=== PATIENT | male | born 1955 | race Caucasian/White ===

== ENCOUNTER 2021-06-14 11:56 | Outpatient (CLI) | payer BC, SELFPAY ==
--- NOTE | ~2021-06-14 | XR_ITS ---
EXAMINATION: XR lumbar spine 2-3V DATE: 06/14/2021 12:23 INDICATION: Low back pain. TECHNIQUE: 3 views of lumbar spine were obtained. COMPARISON: Lumbar spine radiographs 04/10/2013, MRI 05/18/2012 FINDINGS: There is 8 degrees dextrocurvature of lumbar spine. Vertebral body heights are normal. Ther e is moderately decreased disc height at L1-L2, mildly decreased disc height from L2-L3 through L4-L5 , and severely decreased disc height at L5-S1 with endplate remodeling. There is multilevel facet mickey nt osteoarthritis, severe at many levels. IMPRESSION: 1. Severe lower lumbar spondylosis. Reviewed, dictated and finalized at location A. T [employer] SUPERVISOR
== END 2021-06-14 11:57 | disposition home or self-care (01) ==
LOC: ANHIMG 12:04
PROVIDERS: PCP Nurse Practitioner Family; Visit Provider Nurse Practitioner Family
DX: M47.896 Other spondylosis, lumbar region (principal)
CPT/HCPCS: 72100

== ENCOUNTER 2022-06-19 09:41 | Outpatient (CLI) | payer MEDICARE, SELFPAY ==
[2022-06-19 09:59] LABS: Basophils Absolute Auto 0.05 K/mm3 (0.00-0.10); Basophils Percent Auto 0.7 % (0.0-1.0); Eosinophils Absolute Auto 0.09 K/mm3 (0.02-0.50); Eosinophils Percent Auto 1.3 % (1.0-6.0); Hematocrit 49.4 % (37.0-46.0); Hemoglobin 16.3 g/dL (12.4-15.3); Immature Granulocyte Absolute 0.05 K/mm3 (0.00-0.00); Immature Granulocyte Percent A 0.7 % (0.0-0.0); Lymphocytes Absolute Auto 2.32 K/mm3 (1.10-4.50); Lymphocytes Percent Auto 32.4 % (18.0-42.0); Mean Corpuscular Hemoglobin 29.9 pg (27.0-31.0); Mean Corpuscular Volume 90.6 fL (78.0-102.0); Mean Platelet Volume 9.3 fl (8.7-11.0); Monocytes Absolute Auto 0.64 K/mm3 (0.10-0.90); Monocytes Percent Auto 8.9 % (2.0-11.0); Platelet Count Result 249 K/mm3 (150-420); Red Blood Count 5.45 M/mm3 (4.70-6.10); Red Cell Distribution Width 12.6 % (11.6-14.4); White Blood Count 7.2 K/mm3 (4.8-10.8)
[2022-06-19 10:45] LABS: Alanine Aminotransferase 36 U/L (16-63); Albumin Level 4.1 g/dL (3.4-5.0); Alkaline Phosphatase 85 U/L (46-116); Anion Gap 7 mmol/L (8-16); Aspartate Amino Transferase 15 U/L (15-37); Bilirubin,Total 0.6 mg/dL (0.00-1.00); Blood Urea Nitrogen 21 mg/dL (7-18); Calcium 9.1 mg/dL (8.5-10.1); Carbon Dioxide 31 mmol/L (21-32); Chloride 105 mmol/L (98-108); Cholesterol 164 mg/dL (0-200); Estimated Glomerular Filt Rate > 60; Free T4 Free Thyroxine 0.92 ng/dL (0.76-1.46); Glucose 103 mg/dL (70-99); HDL Direct 51 mg/dL (40-60); LDL Cholesterol Calculated 93 mg/dL (<130); Magnesium 1.7 mg/dL (1.8-2.4); Osmolality Calculated 299 mOsm/kg (285-295); Potassium 4.4 mmol/L (3.5-5.1); Sodium 143 mmol/L (136-145); Thyroid Stimulating Hormone 1.75 uIU/mL (0.36-3.74); Total Protein 7.2 g/dL (6.4-8.2); Triglycerides 98 mg/dL (0-150)
== END 2022-06-19 09:42 | disposition home or self-care (01) ==
LOC: CHSLAB 09:46
PROVIDERS: PCP Nurse Practitioner Family; Visit Provider Nurse Practitioner Family
DX: R61 Generalized hyperhidrosis (principal); I10 Essential (primary) hypertension; Z13.6 Encounter for screening for cardiovascular disorders; R25.2 Cramp and spasm
CPT/HCPCS: 36415; 80053; 80061; 83735; 84439; 84443; 85025

== ENCOUNTER 2022-11-03 11:04 | Outpatient (CLI) | payer MEDICARE, OTHER, SELFPAY ==
[2022-11-03 11:18] LABS: Hematocrit 47.9 % (37.0-46.0); Hemoglobin 15.9 g/dL (12.4-15.3); Mean Corpuscular HGB Conc 33.2 g/dL (32.0-36.0); Mean Corpuscular Hemoglobin 30.1 pg (27.0-31.0); Mean Corpuscular Volume 90.7 fL (78.0-102.0); Mean Platelet Volume 8.9 fl (8.7-11.0); Platelet Count Result 235 K/mm3 (150-420); Red Blood Count 5.28 M/mm3 (4.70-6.10); Red Cell Distribution Width 12.2 % (11.6-14.4); White Blood Count 7.3 K/mm3 (4.8-10.8)
[2022-11-03 12:21] LABS: Alanine Aminotransferase 32 U/L (16-63); Albumin Level 4.1 g/dL (3.4-5.0); Alkaline Phosphatase 93 U/L (46-116); Anion Gap 8 mmol/L (8-16); Aspartate Amino Transferase 21 U/L (15-37); Bilirubin,Total 0.5 mg/dL (0.00-1.00); Blood Urea Nitrogen 17 mg/dL (7-18); Calcium 9.1 mg/dL (8.5-10.1); Carbon Dioxide 29 mmol/L (21-32); Chloride 104 mmol/L (98-108); Cholesterol 155 mg/dL (0-200); Estimated Glomerular Filt Rate > 60; Glucose 79 mg/dL (70-99); HDL Direct 43 mg/dL (40-60); LDL Cholesterol Calculated 80 mg/dL (<130); Osmolality Calculated 292 mOsm/kg (285-295); Potassium 4.3 mmol/L (3.5-5.1); Prostate Specific Antigen 2.2 ng/mL (< OR = 4.0); Sodium 141 mmol/L (136-145); Triglycerides 160 mg/dL (0-150)
[2022-11-03 12:44] LABS: Thyroid Stimulating Hormone Reflex 1.66 u/IU/mL (0.36-3.74)
== END 2022-11-03 11:05 | disposition home or self-care (01) ==
PROVIDERS: PCP Nurse Practitioner Family; Visit Provider Family Medicine
DX: R35.1 Nocturia (principal); E11.9 Type 2 diabetes mellitus without complications; I10 Essential (primary) hypertension; L98.8 Other specified disorders of the skin and subcutaneous tissue; Z12.5 Encounter for screening for malignant neoplasm of prostate
CPT/HCPCS: 36415; 80053; 80061; 84153; 84443; 85027; 88305; 88342; G0103

== ENCOUNTER 2022-11-10 09:31 | Outpatient (NON) | payer MEDICARE, SELFPAY | END 2022-11-10 09:32 | disposition home or self-care (01) | LOC: CHSLAB 09:33 | PROVIDERS: Visit Provider Family Medicine | DX: C43.59 Malignant melanoma of other part of trunk (principal) | CPT/HCPCS: 88305; 88342 ==

== ENCOUNTER 2022-11-29 10:19 | Outpatient (NON) | payer MEDICARE, SELFPAY | END 2022-11-29 10:20 | disposition home or self-care (01) | LOC: CHSLAB 10:21 | PROVIDERS: Visit Provider Family Medicine | DX: L82.1 Other seborrheic keratosis (principal) | CPT/HCPCS: 88305; 88342 ==

== ENCOUNTER 2022-12-25 08:09 | Outpatient (CLI) | payer MEDICARE, OTHER, SELFPAY ==
--- NOTE | 2022-12-25 08:30 | ECG_ITS ---
Measurements Intervals [place] Rate: 60 P: 46 CO: 155 QRS: 8 QRSD: 97 T: 29 QT: 405 QTc: 407 Interpretive Statements SINUS RHYTHM BASELINE ARTIFACT NORMAL ECG NO PREVIOUS ECG AVAILABLE FOR COMPARISON Electronically Signed On 12-25-2022 17:03:12 CDT by Damien Cadena M.D.
== END 2022-12-25 08:10 | disposition home or self-care (01) ==
LOC: ANHSURGERY 08:18
PROVIDERS: PCP Nurse Practitioner Family; Visit Provider Surgery Plastic and Reconstructive Surgery
DX: I10 Essential (primary) hypertension (principal); Z01.818 Encounter for other preprocedural examination
CPT/HCPCS: 93005

== ENCOUNTER 2023-01-04 01:46 | Day surgery (SDC) | payer MEDICARE, OTHER, SELFPAY ==
[2022-12-22 14:03] VITALS: BMI 35.9
--- NOTE | 2022-12-22 14:33 | PC.NURSE ---
Report to the Outpatient Waiting Room, entrance under the green pavilion located off [facility], at time ___8:00AM___ on date _01/04/23 . Planned Procedure Time: NUCLEAR MED AT 9:00AM/SURGERY AT 10:30AM . Time changes happen often and if your time is changed the preop area will call you the afternoon before. - You and your visitor will be asked to self-screen and do not enter if you have any COVID symptoms. - A mask is optional within the hospital at this time. Patients may have clear liquids (water, carbonated beverages, clear teas, apple juice) until 3 hours prior to surgery with a maximum of 20 ounces. - No food from midnight until time of surgery Take the following medications with a SIP of water the morning of surgery: __NONE DO NOT STOP ANY OF YOUR OTHER PRESCRIPTION MEDICATIONS PRIOR TO SURGERY ?EXCEPT THE FOLLOWING Medications to discontinue per physician ___HOLD ALL VITAMINS/SUPPLEMENTS 3 DAYS PRE-OP Date to take last dose___12/31/22 Please no make-up, nail croatian, hairspray, perfume, deodorant, or body powder the day of surgery. No jewelry (including any body piercings) or valuables the day of surgery, leave them at home. Please take a shower or bath the night before, or the morning of, surgery with an antibacterial soap. Wear comfortable, loose fitting clothing. Children are encouraged to wear pajamas. - Jewelry must be removed prior to entering the operating room. Rings and piercings that are not removed may be cut off. - The hospital will not accept responsibility for valuables. - Please leave all valuables, including medications, at home the day of surgery. If you are going home after surgery, a licensed driver trainer must drive you home. - NO public transportation without another adult if you receive anesthesia. - We recommend that an adult stay with you for 24 hours following discharge. - We also recommend that you do not drive, make important decision, drink alcoholic beverages, or take any drugs that were not prescribed by your health care provider for at least 24 hours after your discharge time. Follow any additional instructions given to you from your surgeon. If you or anyone in your household have experienced Covid symptoms in the past week, please notify your surgeon or the nurse liaison at the phone number below for possible testing. Telephone instructions given to __PATIENT and asked if any additional questions and then verbalized understanding. Patient advised to call surgeon office or pre surgery nurse liaison [phone] if any additional questions.
[2023-01-04] VITALS (7 sets, daily range): BP systolic 113–133; BP diastolic 68–77; PULSE 69–72; RESP 14–18; TEMP 36.9–37.1; O2SAT 94–98
--- NOTE | ~2023-01-04 | NM_ITS ---
EXAMINATION: NM sentinel node w imaging DATE: 01/04/2023 09:49 INDICATION: Melanoma TECHNIQUE: 0.660 mCi Tc-99m Lymphoseek was injected in two aliquots along the medial and lateral nelly ins of the scar at the site of a recent melanoma excision. 2 anterior scintigrams were obtained, the second with a marker superimposed over the sentinel node. IMPRESSION: 1. Single left axillary sentinel lymph node, activity from which projects slightly lateral to the ar eola. Reviewed, dictated and finalized at location A. IMPRESSION: 1. Single left axillary sentinel lymph node, activity from which projects slig htly lateral to the areola.
[2023-01-04] MEDS: LACTATED RINGERS 1,000 ML 30 ML IV CONT ×2 (08:30→11:33)
--- NOTE | 2023-01-04 09:39 | P.OP_ITS ---
Procedure Note - Detailed Date of Procedure 01/04/23 Pre-op Diagnosis melanoma Post-op Diagnosis Same Procedure Performed 1. Wide excision left mid back 7.5 cm with 8.5cm closure 2. Left axillary sentinel node biopsy Surgeon Reggie Bowen MD Anesthesia General Indications Patient comes to see us with a lesion left mid back. Biopsy proven PT 3A Breslow level 2.7 mm Jerry's level 4 no ulceration partial regression. Biopsy of lesion chest completed which returned as SK. Description of Procedure Preoperatively the risks, benefits, alternatives were discussed in extensive detail. I want him to be very realistic about the risks involved as well as ex pectations. Made sure answered all of his questions to his satisfaction. He voiced clear understanding. Consent was obtained. He was taken to Radiology. There radial nucleotide was injected around the lesion. We waited for adequate time for this to proceed to the sentinel node. He was marked in the preoperative holding area with his verification. Taken to the operating room. Anesthesia provided by anesthesiology. He was placed in the right lateral decubitus position. prepped and draped in a standard sterile fashion. Surgical time-out was taken. Identified the node with the probe. 1% lidocaine and 0.25% Marcaine with epinephrine was used anesthetize locally. Fifteen blade used to make an incision I continued dissection town until the node was identified. This was removed. The background was well less than 10%. This was closed with 2-0 Vicryl followed by 3-0 Monocryl in a running subcuticular 4-0 Monocryl and tissue glue. I marked out the lesion of concern with greater than 2 cm border. A 15 blade used to make an incision and this was resected down to the level of the fascia. This was removed. I had to widely undermine for closure and this was closed us ing 2-0 Vicryl, 3-0 Stratafix, 3-0 Nylon horizontal mattress. Dressings were placed. He was woken taken to PACU without difficulty. All instrument sponge counts were correct at the end of the case. 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
--- NOTE | 2023-01-04 09:49 | WPDANESEPPF ---
Anes - Initial Pre Proc Eval Procedure: Operation Date: 01/04/23 10:30 Proposed Procedures p Excision of Melanoma Left Mid-Back, - Reggie Bowen MD s [place] Lymph Node Biopsy Melanoma - Reggie Bowen MD Date/Time: 01/04/23 09:49 Surgeon: Reggie Bowen MD Pre Op Diagnosis: melanoma Patient Data Age: 67 Gender: M Height: 1.83 m Weight: 119 kg Last Vital Signs Temp 36.9 C 01/04/23 08:30 Pulse 71 01/04/23 08:30 Resp 18 01/04/23 08:30 BP 133/74 01/04/23 08:30 Pulse Ox 97 01/04/23 08:30 O2 Del Method Room Air 01/04/23 08:30 Allergies Allergy/AdvReac Type Severity Reaction Status Date / Time Penicillins Allergy Intermediate Hives Verified 01/04/23 09:18 Home Medications Medication Instructions Recorded Confirmed Type diazepam 5 mg tablet 5 mg PO QHS PRN sleep #30 tabs 12/08/22 01/04/23 Rx apple cider vinegar 500 mg tablet 450 mg PO DAILY 12/22/22 01/04/23 History lisinopril 40 mg tablet 40 mg PO QAM 12/22/22 01/04/23 History magnesium oxide 800 mg PO HS 12/22/22 01/04/23 History multivitamin 1 tablet PO DAILY 12/22/22 01/04/23 History naproxen sodium 220 mg capsule 440 mg PO BID PRN Pain 12/22/22 01/04/23 History (Aleve) potassium 99 mg tablet 99 mg PO HS 12/22/22 01/04/23 History tumeric 100 mg-carmenza 150 mg-olive 1 cap PO DAILY 12/22/22 01/04/23 History 50 mg-oreg 150 mg-caprylate capsule zinc 50 mg capsule 50 mg PO DAILY 12/22/22 01/04/23 History Patient hx anesthesia problems: none Family hx anesthesia problems: none Results Review: All pre-operative results and documents have been reviewed as part of the pre-operative evaluation. [facility] Past Medical History Medical History (Updated 01/04/23 @ 09:49 by Rachid Christianson MD) Hypertension JULIO on CPAP Surgical History Surgical History H/O foot surgery H/O knee surgery Hx of neck surgery Social History Social History Smoking status: Never smoker Alcohol intake: current Drinks per week: 4 Substance use: never Lack of Transportation: No Lack of Food: Never True Current Housing: I Have Housing Concerned About Future Housing: No Difficulty Paying Gas/Electric Bills: No Difficulty Paying for Meds: No Currently Unemployed: No Education: High School Diploma/GED Difficulty w/ Childcare or Family Care: No Living arrangements: with family Additional living arrangements comments: Occupation/Education: retired Spiritual care concerns: No Anes - Eval Final PreProcedure Day of Procedure 01/04/23 09:49 Patient weight: obese Heart: regular rate and rhythm Lungs: clear to auscultation Airway: Mallampati scale class III Neurological: alert and oriented Last oral intake: >/= 8 hours ASA classification: III Emergent: no Anesthetic plan: proceed Anesthesia type and monitoring: general and standard monitoring Results Review: All pre-operative results and documents have been reviewed as part of the pre-operative evaluation. Informed Consent: The patient's anesthetic plan and its attendant risks and benefits were discussed with the patient/family/POA. Questions were solicited and answers provided to the satisfaction of the patient/family/POA.
--- NOTE | 2023-01-04 10:12 | WPDHPUPDATE1 ---
History and Physical Update Update Date/Time: 01/04/23 10:12 History and Physical has been reviewed, including an updated exam of the patient. There are NO changes in the patient's condition. Risks, benefits, and alternatives have been discussed and questions answered. Patient agrees to proceed with procedure.
[2023-01-04] MEDS: ceFAZolin 3 GM/D5W 100 ML 100 ML IVPB (10:16)
[2023-01-04] MEDS: LIDO 1%/EPINEPHRINE 1:100,000 50 ML VIAL 30 ML INFILTRATE (10:59)
--- NOTE | 2023-01-04 10:59 | SUR.OPER ---
Fresh SLN Bx sent to Pathology per GRISEL Mack. Received by Kari.
== END 2023-01-04 13:20 | disposition home or self-care (01) ==
PROVIDERS: PCP Nurse Practitioner Family; Visit Provider Surgery Plastic and Reconstructive Surgery
PROC: (CPT 11606; principal; 2023-01-04 10:30)
PROC: (CPT 11606; 2023-01-04 10:30)
DX: C43.59 Malignant melanoma of other part of trunk (principal); I10 Essential (primary) hypertension; G47.33 Obstructive sleep apnea (adult) (pediatric); E66.9 Obesity, unspecified; Z68.35 Body mass index [BMI] 35.0-35.9, adult
CPT/HCPCS: 11606; 12034; 38525; 78195; 88305; 88307; 88342; A9520; J0690; J1100; J2250; J2370; J2405; J2704; J3010; J7120

== ENCOUNTER 2023-05-24 07:49 | Outpatient (CLI) | payer MEDICARE, SELFPAY ==
[2023-05-24 08:34] LABS: CRP 0.6 mg/dL (0.0-0.9)
[2023-05-24 09:07] LABS: Erythrocyte Sedimentation Rate 5 mm/hr (0-20)
== END 2023-05-24 07:50 | disposition home or self-care (01) ==
LOC: CHSLAB 07:54
PROVIDERS: PCP Family Medicine
DX: C43.59 Malignant melanoma of other part of trunk (principal)
CPT/HCPCS: 36415; 85652; 86140

== ENCOUNTER 2023-09-20 10:18 | Outpatient (CLI) | payer MEDICARE, OTHER, SELFPAY ==
--- NOTE | ~2023-09-20 | XR_ITS ---
EXAMINATION: XR thoracic spine 3V DATE: 09/20/2023 10:53 INDICATION: Thoracic back pain TECHNIQUE: AP, lateral and lateral swimmer's views of the thoracic spine were obtained. COMPARISON: 01/13/2016 FINDINGS: Changes of anterior fusion procedure are noted in the lower cervical spine. There are bridg ing osteophytes at multiple levels in the spine, consistent with diffuse idiopathic skeletal hyperost osis (DISH). Bone alignment is normal. There is no fracture. There is moderate loss of intervertebral disc space height at multiple levels in the thoracic spine. The vertebral body heights are maintaine d. IMPRESSION: 1. Moderate thoracic spondylosis and diffuse idiopathic skeletal hyperostosis without acute findings. Reviewed, dictated and finalized at location L. CAL SECRETARY IMPRESSION: 1. Moderate thoracic spondylosis and diffuse idiopathic skeletal hyperostosis w ithout acute findings.
--- NOTE | ~2023-09-20 | XR_ITS ---
Left Shoulder Technique: AP and scapular Y views were obtained. Clinical History: Pain Findings: No fracture or dislocation is seen. Osseous alignment is anatomic. There is moderate AC mickey nt degenerative change. Glenohumeral joint is intact. Soft tissues are unremarkable. Impression: Moderate AC joint degenerative change. Reviewed, dictated and finalized at [facility]. AVER Impression: Moderate AC joint degenerative change.
--- NOTE | ~2023-09-20 | XR_ITS ---
EXAMINATION:XR_CERV2-3V_CR DATE: 09/20/2023 10:53 INDICATION: Neck pain TECHNIQUE: AP, lateral, lateral swimmers and odontoid views of the cervical spine are provided. COMPARISON: 03/12/2014 FINDINGS: There are changes of anterior fusion procedure from C5 through C7. Bone alignment is normal . The odontoid process is intact. No fracture is identified. The vertebral body heights are maintaine d. There is moderate loss of intervertebral disc space height at C5-6 and C6-7. There is mild multile kalen facet and uncovertebral joint osteoarthritis. Prevertebral soft tissues are normal. IMPRESSION: 1. Moderate cervical spondylosis and changes of anterior fusion without acute osseous abnormality gertrudis ntified. Reviewed, dictated and finalized at location L. PO[employer] P[employer] ASSEMBLER IMPRESSION: 1. Moderate cervical spondylosis and changes of anterior fusion without acute o sseous abnormality identified.
== END 2023-09-20 10:19 | disposition home or self-care (01) ==
LOC: CHSIMG 10:22
PROVIDERS: PCP Family Medicine; Visit Provider Nurse Practitioner Family
DX: M25.512 Pain in left shoulder (principal); M54.6 Pain in thoracic spine; M54.2 Cervicalgia; M54.02 Panniculitis affecting regions of neck and back, cervical region; Z98.1 Arthrodesis status; M43.04 Spondylolysis, thoracic region; M48.14 Ankylosing hyperostosis [Forestier], thoracic region
CPT/HCPCS: 72040; 72072; 73030

== ENCOUNTER 2023-11-20 10:02 | Outpatient (CLI) | payer MEDICARE, OTHER, SELFPAY ==
--- NOTE | ~2023-11-20 | MR_ITS ---
MRI of the cervical spine Clinical History: Neck pain Technique: Axial T2-weighted and gradient images, and sagittal T1-weighted, T2-weighted, and STIR thuan ges were acquired. Findings: There is anterior/interbody fusion extending from C5 to C7. No acute fracture or subluxatio n evident. No suspicious bone marrow signal abnormality identified. At C2-C3, no significant disc bulge or herniation seen. No spinal canal stenosis, cord compression, o r neural foraminal narrowing. At C3-C4, there is minimal disc osteophyte complex. No spinal canal stenosis or cord compression. Pos sible minimal bilateral neural foraminal narrowing with minimal facet arthropathy. At C4-C5, there is no significant disc bulge or herniation. No spinal canal stenosis or cord compress ion. There is bilateral neural foraminal narrowing, left worse than right, with bilateral facet arthr opathy. At C5-C6, there is no disc bulge or herniation. No spinal canal stenosis or cord compression. There i s probable mild bilateral neural foraminal narrowing. At C6-C7, there is no definite canal stenosis or cord compression. There is probable mild bilateral n eural foraminal narrowing. No abnormal signal seen in the spinal cord. Paravertebral soft tissues are unremarkable otherwise. Impression: Postoperative change, as above. Mild degenerative spondylosis, as above. Reviewed, dictated and finalized at [facility]. Impression: Postoperative change, as above. Mild degenerative spondylosis, as above.
== END 2023-11-20 10:03 | disposition home or self-care (01) ==
PROVIDERS: PCP Nurse Practitioner Family
DX: G56.00 Carpal tunnel syndrome, unspecified upper limb (principal); M47.22 Other spondylosis with radiculopathy, cervical region
CPT/HCPCS: 72141

== ENCOUNTER 2023-11-27 13:07 | Outpatient (CLI) | payer MEDICARE, OTHER, SELFPAY ==
--- NOTE | 2023-11-27 14:20 | NEURO_ITS ---
Impression: # Complains of right hand pain and nocturnal paresthesia .. History of Melanoma on treatment that is Ketruda. # Moderate to severe right Carpal Tunnel Syndrome. # No ulnar neuropathy. # Mildly abnormal needle/EMG exam. Nerve Conduction Studies Anti Sensory Summary Table Stim Site NR Peak (ms) P-T Amp (?V) Site1 Site2 Delta-P (ms) Dist (cm) Jasmeet (m/s) Right Median Anti Sensory (2-3nd Digit) Wrist 7.2 25.5 Wrist 2-3nd Digit 7.2 14.0 19 Wrist 6.4 18.3 Wrist 2-3nd Digit 7.2 14.0 19 Right Radial Anti Sensory (Base 1st Digit) Wrist 2.7 7.3 Wrist Base 1st Digit 2.7 0.0 Right Ulnar Anti Sensory (5th Digit) Wrist 2.5 19.6 Wrist 5th Digit 2.5 14.0 56 Motor Summary Table Stim Site NR Onset (ms) O-P Amp (mV) Site1 Site2 Delta-0 (ms) Dist (cm) Jasmeet (m/s) Right Median Motor (Abd Poll Brev) Wrist 7.9 1.2 Elbow Wrist 6.6 32.0 48 Elbow 14.5 1.2 Right Ulnar Motor (Abd Dig Minimi) Wrist 2.7 8.6 A Elbow Wrist 5.8 32.0 55 A Elbow 8.5 6.6 F Wave Studies NR F-Lat (ms) L-R F-Lat (ms) Right Median (Mrkrs) (Abd Poll Brev) 34.03 Right Ulnar (Mrkrs) (Abd Dig Min) 31.48 EMG Side Muscle Nerve Root Ins Act Fibs Amp Dur Recrt Comment Right 1stDorInt Ulnar C8-T1 Nml Nml Nml Nml Nml Right Ext Indicis Radial (Post Int) C7-8 Nml Nml Nml Nml Nml Right Ext Digitorum Radial (Post Int) C7-8 Nml Nml Nml Nml Nml Right BrachioRad Radial C5-6 Nml Nml Nml Nml Nml Right PronatorTeres Median C6-7 Nml Nml Nml Nml Nml Right Abd Poll Brev Median C8-T1 Nml Nml Nml >12ms +2 Right ABD Dig Min Ulnar C8-T1 Nml Nml Nml Nml Nml MTDD
== END 2023-11-27 13:08 | disposition home or self-care (01) ==
PROVIDERS: PCP Nurse Practitioner Family
DX: G56.01 Carpal tunnel syndrome, right upper limb (principal)
CPT/HCPCS: 95886; 95909

== ENCOUNTER 2024-02-20 09:26 | Outpatient (CLI) | payer MEDICARE, OTHER, SELFPAY ==
--- NOTE | ~2024-02-20 | CT_ITS ---
Clinical Indication: Chest pain CT Scan of the Chest with Contrast: Technique: Contiguous sections were acquired throughout the chest after intravenous administration of 100 cc of Omnipaque 350. Dose reduction technique was used on this scan by utilizing automated expos ure control and iterative reconstruction technique. The dose-length product (DLP) was 989.29 mGy-cm. Findings: There is no evidence of any significant mediastinal, hilar or axillary lymphadenopathy. There is no f illing defect in the pulmonary arterial tree to suggest pulmonary embolus. There is no evidence of ao rtic dissection or aneurysm. There is no evidence of pleural or pericardial effusion. Right basilar consolidation probably represents atelectasis, versus possibly pneumonia. 4 mm left low er lobe pulmonary nodule present (axial image 75). Images through the upper abdomen reveal no abnormalities. Impression: No evidence of pulmonary embolus, aortic dissection, or aortic aneurysm. Right basilar atelectasis, less likely pneumonia. Correlate clinically. 4 mm left lower lobe pulmonary nodule. According to Fleischner Society criteria, for a low-risk patie nt, no further follow-up required. For a high-risk patient, consider 12 month follow-up CT. Reviewed, dictated and finalized at location . Impression: No evidence of pulmonary embolus, aortic dissection, or aortic aneurysm. Right basilar atelectasis, less likely pneumonia. Correlate clinically. 4 mm left lower lobe pulmonary nodule. According to Fleischner Society criteria , for a low-risk patient, no further follow-up required. For a high-risk patien t, consider 12 month follow-up CT.
[2024-02-20 09:50] LABS: Basophils Absolute Auto 0.04 K/mm3 (0.00-0.10); Basophils Percent Auto 0.5 % (0.0-1.0); Eosinophils Absolute Auto 0.11 K/mm3 (0.02-0.50); Eosinophils Percent Auto 1.2 % (1.0-6.0); Hematocrit 43.8 % (37.0-46.0); Hemoglobin 14.7 g/dL (12.4-15.3); Immature Granulocyte Absolute 0.05 K/mm3 (0.00-0.00); Immature Granulocyte Percent A 0.6 % (0.0-0.0); Lymphocytes Absolute Auto 2.22 K/mm3 (1.10-4.50); Lymphocytes Percent Auto 25.2 % (18.0-42.0); Mean Corpuscular HGB Conc 33.6 g/dL (32-36); Mean Corpuscular Hemoglobin 30.5 pg (27.0-31.0); Mean Corpuscular Volume 90.9 fL (78.0-102.0); Mean Platelet Volume 9.3 fl (8.7-11.0); Monocytes Absolute Auto 0.83 K/mm3 (0.10-0.90); Monocytes Percent Auto 9.4 % (2.0-11.0); Neutrophils Absolute Auto 5.57 K/mm3 (1.70-7.20); Neutrophils Percent Auto 63.1 % (50.0-70.0); Platelet Count Result 247 K/mm3 (150-420); Red Blood Count 4.82 M/mm3 (4.70-6.10); White Blood Count 8.8 K/mm3 (4.8-10.8)
[2024-02-20 10:12] LABS: Prothrombin Time 10.6 Seconds (9.50-12.1)
[2024-02-20 10:32] LABS: Estimated Glomerular Filt Rate > 60
[2024-02-20 10:41] LABS: Alanine Aminotransferase 39 U/L (16-63); Alkaline Phosphatase 89 U/L (46-116); Anion Gap 7 mmol/L (4-12); Aspartate Amino Transferase 24 U/L (15-37); Bilirubin,Total 0.9 mg/dL (0.00-1.00); Blood Urea Nitrogen 16 mg/dL (7-18); Calcium 8.8 mg/dL (8.5-10.1); Carbon Dioxide 30 mmol/L (21-32); Chloride 104 mmol/L (98-108); Glucose 106 mg/dL (70-99); NT Pro B Type Natriuretic Pept 93 pg/mL (0-125); Osmolality Calculated 293 mOsm/kg (285-295); Potassium 4.2 mmol/L (3.5-5.1); Sodium 141 mmol/L (136-145); Total Protein 6.4 g/dL (6.4-8.2)
== END 2024-02-20 09:27 | disposition home or self-care (01) ==
LOC: CHSLAB 09:28
PROVIDERS: PCP Family Medicine; Visit Provider Family Medicine
DX: R10.9 Unspecified abdominal pain (principal); R07.9 Chest pain, unspecified; R06.02 Shortness of breath
CPT/HCPCS: 36415; 71275; 80053; 83880; 84484; 85025; 85610; Q9967

== ENCOUNTER 2024-02-29 11:40 | Outpatient (CLI) | payer MEDICARE, OTHER, SELFPAY ==
--- NOTE | ~2024-02-29 | XR_ITS ---
XR_CERV2-3V_CR Ordering provider: Lyle Lewis DO History: . Cervical spine pain radiates into Lt. shoulder x2 weeks, NKI . Comparison: September 20, 2023 FINDINGS: VERTEBRAL BODIES: Normal height and alignment. No visible fracture or subluxation. The dens is intact . Postoperative changes at the level of C5, C6 and C7. DISK SPACES: Well maintained. Multilevel uncovertebral joint osteoarthritic changes. PARASPINOUS SOFT TISSUES: No prevertebral soft tissue swelling. IMPRESSION: No acute osseous abnormality cervical spine. Postoperative changes. Reviewed, dictated and finalized at location A.
== END 2024-02-29 11:41 | disposition home or self-care (01) ==
LOC: CHSIMG 11:43
PROVIDERS: PCP Family Medicine; Visit Provider Family Medicine
DX: M54.12 Radiculopathy, cervical region (principal); Z98.890 Other specified postprocedural states
CPT/HCPCS: 72040

== ENCOUNTER 2024-03-06 07:08 | Outpatient (CLI) | payer MEDICARE, OTHER, SELFPAY ==
--- NOTE | ~2024-03-06 | MR_ITS ---
EXAMINATION: MR cervical spine wo con DATE: 03/06/2024 07:56 INDICATION: Neck pain. Left chest and arm pain. TECHNIQUE: Magnetic resonance imaging (MRI) of the cervical spine was performed without intravenous c ontrast. COMPARISON: Cervical spine MRI 11/20/23 FINDINGS: Bone alignment is normal. Vertebral body heights are normal. There are changes of anterior fusion procedure from C5 to C7 with healed interbody bone graft and anterior plate and screws. Interv ertebral disc heights are normal. The spinal cord signal intensity is normal. The following disc leve ls are specifically discussed: C2-C3: The disc does not extend beyond the endplate margin. There is no uncovertebral joint osteoarth ritis. There is mild bilateral facet joint osteoarthritis. There is no neural foraminal stenosis. The re is no central canal stenosis. C3-C4: There is a central protrusion. There is mild right and moderate left uncovertebral joint osteo arthritis. There is severe right and moderate left facet joint osteoarthritis. There is mild left juan ral foraminal stenosis. There is mild central canal stenosis. C4-C5: The disc is bulging. There is mild bilateral uncovertebral joint osteoarthritis. There is mode rate bilateral facet joint osteoarthritis. There is mild right and moderate left neural foraminal jw nosis. There is mild central canal stenosis. C5-C6: There is mild bilateral uncovertebral joint hypertrophy. There is no facet joint osteoarthriti s. There is mild bilateral neural foraminal stenosis. There is mild central canal stenosis. C6-C7: There is severe right and moderate left uncovertebral joint hypertrophy. There is mild right f acet joint osteoarthritis. There is moderate bilateral neural foraminal stenosis. There is mild centr al canal stenosis. C7-T1: The disc does not extend beyond the endplate margin. There is no uncovertebral joint osteoarth ritis. There is severe bilateral facet joint osteoarthritis. There is mild bilateral neural foraminal stenosis. There is no central canal stenosis. IMPRESSION: 1. Moderate cervical spondylosis, stable from 11/20/23. 2. Anterior fusion procedure from C5 to C7. Reviewed, dictated and finalized at location A.
== END 2024-03-06 07:09 | disposition home or self-care (01) ==
LOC: CHSIMG 07:10
PROVIDERS: PCP Family Medicine; Visit Provider Family Medicine
DX: M43.22 Fusion of spine, cervical region (principal); M54.2 Cervicalgia; M43.02 Spondylolysis, cervical region; Z98.1 Arthrodesis status
CPT/HCPCS: 72141

== ENCOUNTER 2024-03-23 21:32 | Emergency (ER) | payer MEDICARE, OTHER, SELFPAY ==
--- NOTE | ~2024-03-23 | CT_ITS ---
CT of the Abdomen and Pelvis: Indication: Abdominal pain Technique: 2.5 mm axial scans were obtained through the abdomen and pelvis following intravenous adm inistration of 100 cc of Omnipaque 350. Dose reduction technique was used on this scan by utilizing a utomated exposure control and iterative reconstruction technique. The dose-length product (DLP) was 1 462.52 mGy-cm. Findings: Scans through the lung bases demonstrate 3 mm left lower lobe pulmonary nodules. There is probable right basilar atelectatic change versus pneumonia.. The liver, spleen, pancreas, gallbladder, adrenals and kidneys are within normal limits. There are at herosclerotic calcifications of the aorta. No lymphadenopathy. No bowel obstruction or bowel wall thickening. There is no evidence to suggest acute appendicitis. Images through the pelvis were performed. Urinary bladder unremarkable. No pelvic mass evident. No as cites. Small bilateral fat-containing inguinal hernias noted. Impression: Small bilateral fat-containing inguinal hernias. Right basilar atelectasis versus pneumonia. Correlate clinically. 3 mm left lower lobe pulmonary nodules. According to Fleischner Society criteria, for a low-risk orestes ent, no further follow-up required. For a high-risk patient, consider 12 month follow-up CT. Reviewed, dictated and finalized at location . Impression: Small bilateral fat-containing inguinal hernias. Right basilar atelectasis versus pneumonia. Correlate clinically. 3 mm left lower lobe pulmonary nodules. According to Fleischner Society criteri a, for a low-risk patient, no further follow-up required. For a high-risk patie nt, consider 12 month follow-up CT.
[2024-03-23 21:34] VITALS: BP 119/81; PULSE 87; RESP 16; TEMP 36.6; O2SAT 95
[2024-03-23] MEDS: ONDANSETRON INJ 4 MG/2 ML VIAL IV PUSH ×2 (21:45→23:07)
[2024-03-23] MEDS: FAMOTIDINE 20 MG/2 ML VIAL IV PUSH (21:45)
[2024-03-23] MEDS: LACTATED RINGERS 1,000 ML 999 ML IV CONT (21:47)
[2024-03-23 21:53] LABS: Basophils Percent Auto 0.3 % (0.2-1.2); Eosinophils Absolute Auto 0.2 K/mm3 (0-0.3); Eosinophils Percent Auto 1.4 % (0-4.4); Hematocrit 49.7 % (42.0-52.0); Hemoglobin 16.9 g/dL (14.0-18.0); Immature Granulocyte Percent A 0.8 % (0-0.5); Lymphocytes Absolute Auto 2.54 K/mm3 (0.9-3.2); Lymphocytes Percent Auto 20.6 % (18.3-44.2); Mean Corpuscular Hemoglobin 30.8 pg (26-34); Mean Corpuscular Volume 90.7 fl (80-100); Mean Platelet Volume 9.3 fl (7.4-10.4); Monocytes Absolute Auto 1.5 K/mm3 (0.1-0.6); Monocytes Percent Auto 12.1 % (2.6-8.5); Neutrophils Percent Auto 64.8 % (45.5-73.1); Platelet Count Result 309 k/mm3 (150-375); Red Blood Count 5.48 M/mm3 (4.6-6.20); Red Cell Distribution Width 12.8 % (11.5-14.5); White Blood Count 12.4 K/mm3 (4.5-10.0)
[2024-03-23 22:03] LABS: Alanine Aminotransferase 26 U/L (6-50); Albumin Level 3.2 g/dL (3.5-5.1); Alkaline Phosphatase 56 U/L (38-126); Anion Gap 8 mmol/L (4-12); Aspartate Amino Transferase 35 U/L (17-59); Bilirubin,Total 0.6 mg/dL (0.2-1.3); Blood Urea Nitrogen 11 mg/dL (9-20); Calcium 8.6 mg/dL (8.4-10.2); Carbon Dioxide 28 mmol/L (22-30); Chloride 99 mmol/L (98-107); Estimated CRCL calculation 102 ml/min; Estimated Glomerular Filt Rate > 60; Glucose 116 mg/dL (65-110); Lipase 243 U/L (23-300); Potassium 3.6 mmol/L (3.4-5.0); Sodium 135 mmol/L (137-145)
[2024-03-23 22:28] LABS: Add Urine Microscopic? YES; Appearance Urine Cloudy (Clear); Bacteria Urine None Seen /hpf; Bilirubin Urine 2+ (Negative); Blood Urine Negative (Negative); Color Urine Dark Yellow (Yellow); Glucose Urine UA Negative (Negative); Ketones Urine 2+ mg/dL (Negative); Leukocyte Esterase Ur Trace LEU/UL (Negative); Mucus Urine Present /lpf; Need Manual Microscopic Reviewed; Nitrate Urine Negative (Negative); Protein Urine 1+ mg/dL (Negative); Squamous Epithelial Cell Urine Occasional /hpf (Few); pH Urine 5.5 (5.0-9.0)
[2024-03-23] MEDS: MORPHINE SULFATE (*CRX) 4 MG/ML INJ IV PUSH (22:56)
[2024-03-23 22:58] VITALS: BP 138/89; PULSE 72; RESP 16; O2SAT 96
[2024-03-23] MEDS: PANTOPRAZOLE SODIUM IV 40 MG VIAL IV PUSH (23:15)
--- NOTE | 2024-03-23 23:36 | ED.ABDPAIN ---
HPI - Abdominal Pain General Chief Complaint: Abdominal Pain Stated Complaint: abd pain, diarrhea, N/V Time Seen by Provider: 03/23/24 21:41 History of Present Illness HPI narrative: Patient presents here with more than a month of nausea, vomiting, diarrhea, since he was on chemotherapy for skin cancer also some intermittent right lower abdominal pain since yesterday, has not been able to keep much down. Related Data Home Medications Medication Instructions Recorded Confirmed magnesium oxide 800 mg PO HS 12/22/22 02/29/24 multivitamin 1 tablet PO DAILY 12/22/22 02/29/24 naproxen sodium 220 mg capsule 440 mg PO BID PRN Pain 12/22/22 02/29/24 (Aleve) potassium 99 mg tablet 99 mg PO HS 12/22/22 02/29/24 zinc 50 mg capsule 50 mg PO DAILY 12/22/22 02/29/24 diphenoxylate-atropine 2.5 1 tablet PO QID PRN 09/20/23 02/29/24 mg-0.025 mg tablet valacyclovir 1 gram tablet 1,000 mg PO TID 02/29/24 02/29/24 Allergies Allergy/AdvReac Type Severity Reaction Status Date / Time Penicillins Allergy Intermediate Hives Verified 03/23/24 21:40 Review of Systems Review of Systems: All systems reviewed & are unremarkable except as noted in HPI and below PMFSH Past Medical History Medical History (Updated 03/24/24 @ 02:54 by Maria D Rodrgiuez MD) Chest pain Hypertension JULIO on CPAP SOB (shortness of breath) Surgical History Surgical History (Updated 02/20/24 @ 08:26 by Becki Martinez) H/O foot surgery H/O knee surgery History of carpal tunnel release Hx of neck surgery Social History Social History Smoking status: Never smoker Alcohol intake: current Drinks per week: 4 Substance use: never Lack of Transportation: No Lack of Food: Never True Current Housing: I Have Housing Concerned About Future Housing: No Difficulty Paying Gas/Electric Bills: No Difficulty Paying for Meds: No Currently Unemployed: No Education: High School Diploma/GED Difficulty w/ Childcare or Family Care: No Living arrangements: with family Additional living arrangements comments: Occupation/Education: retired Spiritual care concerns: No Exam Narrative: EXAMINATION OF ORGAN SYSTEMS/BODY AREAS: Constitutional: Vital signs per nursing GENERAL:[No acute distress, non-toxic appearing.] HEAD: Normal with no signs of head trauma. EYES: EOMI, conjunctiva normal ENT: Hearing grossly intact LUNGS: Nonlabored breathing. HEART: [Regular rate and rhythm] ABD: [Soft], very minimally [tender to palpation] lower abdomen EXT: Normal range of motion SKIN: [No rashes or lesions.] NEURO: [Alert and oriented x 3. No gross focal sensory or strength deficits.] PSYCH: Normal affect Course Vital Signs Vital signs: Vital Signs Temperature 97.9 F 03/23/24 21:34 Pulse Rate 87 03/23/24 21:34 Respiratory Rate 16 03/23/24 21:34 Blood Pressure 119/81 03/23/24 21:34 Pulse Oximetry 95 03/23/24 21:34 Oxygen Delivery Room Air 03/23/24 21:34 Temperature 97.9 F 03/23/24 21:34 Pulse Rate 68 03/24/24 02:59 Respiratory Rate 15 03/24/24 02:59 Blood Pressure 124/76 03/24/24 02:59 Pulse Oximetry 97 03/24/24 02:59 Oxygen Delivery Room Air 03/23/24 21:34 MDM - Abdominal Pain MDM Narrative Medical decision making narrative: Patient presents with 1 month of nausea, vomiting, diarrhea, with right-sided abdominal pain that started several days ago. On exam he does appear slightly uncomfortable, several rounds of antiemetics provided, as well as Protonix, famotidine, fluids, bloating, pain medication. EKG on my independent interpretation shows normal sinus rhythm rate 70, ME 153, QRS 97, QTC 448 not prolonged, no ST elevation or depression. Labs show some elevated WBCs, CT abdomen/pelvis significant for right-sided aspiration pneumonia. Given this I did feel it was safe since patient has allergy to penicillins to start hi
[2024-03-24] MEDS: ACETAMINOPHEN 500 MG TABLET 1000 MG PO (01:53)
[2024-03-24] MEDS: diphenhydrAMINE HCl INJ 50 MG/ML VIAL 25 MG IV PUSH (01:54)
[2024-03-24] MEDS: METOCLOPRAMIDE HCL INJ 10 MG/2 ML VIAL IV PUSH (01:55)
--- NOTE | 2024-03-24 02:54 | ECG_ITS ---
Test Date: 2024-03-24 03:04:23 Measurements Intervals [place] Rate: 70 P: 23 RI: 153 QRS: -10 QRSD: 97 T: 30 QT: 415 QTc: 448 Interpretive Statements SINUS RHYTHM NONSPECIFIC ST-T WAVE ABNORMALITY- DIFFUSE LEADS BASELINE ARTIFACT- V2-V3 BORDERLINE ECG No previous ECG available for comparison Electronically Signed On 03-24-2024 06:32:16 CDT by Kashmir Li D.O.
[2024-03-24 02:59] VITALS: BP 124/76; PULSE 68; RESP 15; O2SAT 97
[2024-03-24] MEDS: MOXIFLOXACIN HCL 400 MG TABLET PO (03:16)
[2024-03-24 03:23] VITALS: BP 126/72; PULSE 76; RESP 16; O2SAT 97
== END 2024-03-24 03:24 | disposition home or self-care (01) ==
PROVIDERS: Emergency Provider Emergency Medicine; PCP Family Medicine
DX: J69.0 Pneumonitis due to inhalation of food and vomit (principal); R11.2 Nausea with vomiting, unspecified; R19.7 Diarrhea, unspecified; I10 Essential (primary) hypertension; G47.30 Sleep apnea, unspecified; R82.998 Other abnormal findings in urine
CPT/HCPCS: 36415; 74177; 80053; 81001; 83690; 85025; 87086; 87088; 93005; 96361; 96374; 96375; 96376; 99284; A9270; J1200; J2270; J2405; J2470; J2765; J7120; Q9967

== ENCOUNTER 2024-03-25 10:13 | Emergency (ER) | payer MEDICARE, OTHER, SELFPAY ==
--- NOTE | ~2024-03-25 | XR_ITS ---
XR chest 1V portable Ordering provider: Savanna Mckeon MD History: 68 years Male with . sob . Comparison: January 13, 2016 FINDINGS: MEDIASTINUM: The cardiac silhouette is not enlarged. Elevation of the right hemidiaphragm. LUNGS: No infiltrates, effusions or pneumothorax. OTHER: No free air under the diaphragm. Degenerative the spine. IMPRESSION: No acute cardiopulmonary pathology. Reviewed, dictated and finalized at location A.
--- NOTE | ~2024-03-25 | CT_ITS ---
EXAMINATION: CT abdomen pelvis w con DATE: 03/25/2024 15:16 INDICATION: Generalized abdominal pain. Diarrhea. TECHNIQUE: Computed tomography (CT) of the abdomen and pelvis was performed with 100 mL Omnipaque 350 intravenous contrast. Automated exposure control and iterative reconstruction technique were employe d. The dose-length product was 1686.76 mGy-cm. COMPARISON: CT abdomen and pelvis 03/24/2024, 09/21/2016 FINDINGS: The visualized portions of lung bases demonstrate mild atelectasis. There are a few nodules in the lungs measuring up to 4 mm, likely benign. Calcified right lung nodules are consistent with o ld granulomatous disease. There is chronic elevation of right hemidiaphragm. No pleural effusion. The heart size is normal. No pericardial effusion. There is a cyst in the liver measuring up to 8 mm. Th e gallbladder, spleen, pancreas, and adrenal glands are normal. There are cysts in the kidneys measur ing up to 10 mm on the right. There are two 1-2 mm stones in right kidney. There is a right inguinal hernia containing fat. There are changes of left inguinal hernia repair. The appendix is normal. Ther e are no dilated loops of bowel. There are no pathologically enlarged lymph nodes. There is severe aydee mbar spondylosis. IMPRESSION: 1. Right inguinal hernia containing fat. Reviewed, dictated and finalized at location A.
[2024-03-25 10:22] VITALS: BP 119/71; PULSE 93; RESP 20; TEMP 36.3; O2SAT 98
[2024-03-25 12:49] VITALS: BP 149/84; PULSE 84; RESP 12; O2SAT 96
--- NOTE | 2024-03-25 13:14 | ED.NAVMDI ---
HPI - Nausea/Vomiting/Diarrhea General Chief complaint: Abdominal Pain Stated complaint: n/v/d Time Seen by Provider: 03/25/24 12:42 Source: patient and family Mode of arrival: ambulatory Limitations: no limitations History of Present Illness HPI Narrative: Patient presents with chronic nauesa/vomiting/diarrhea. He took famotidine and Zofran this morning. He had been seen 2 nights ago (03/23) for the same. Had been discharged with multiple medications including antibiotic for pneumonia. Had been advised to follow up with gastroenterology. Was told soonest appointment would be with an CAILIN in 2 weeks but he felt he couldn't wait that long so didn't even make the appointment. Also having pain left side into chest. He has skin cancer and sees Dr Khalif Kline for oncology at [facility]. Was on Keytruda. Last dose 02/03; will be seeing his cancer team for a follow up visit to determine progress/next steps. No radiation. Feels like subhash has an odor coming from his skin. Family members inquiring about prescribing carafate as it had been recommended by a family member who is a physician. On elliquis for DVT in leg. Has been vomiting up everything including liquids except for orange Gatorade this morning. Also has been seen at [facility] for symptoms. Related Data Home Medications Medication Instructions Recorded Confirmed magnesium oxide 800 mg PO HS 12/22/22 02/29/24 multivitamin 1 tablet PO DAILY 12/22/22 02/29/24 naproxen sodium 220 mg capsule 440 mg PO BID PRN Pain 12/22/22 02/29/24 (Aleve) potassium 99 mg tablet 99 mg PO HS 12/22/22 02/29/24 zinc 50 mg capsule 50 mg PO DAILY 12/22/22 02/29/24 diphenoxylate-atropine 2.5 1 tablet PO QID PRN 09/20/23 02/29/24 mg-0.025 mg tablet valacyclovir 1 gram tablet 1,000 mg PO TID 02/29/24 02/29/24 Allergies Allergy/AdvReac Type Severity Reaction Status Date / Time Penicillins Allergy Intermediate Hives Verified 03/23/24 21:40 [facility] Past Medical History Medical History Chest pain Hypertension JULIO on CPAP Skin cancer SOB (shortness of breath) Surgical History Surgical History (Updated 02/20/24 @ 08:26 by Becki Martinez) H/O foot surgery H/O knee surgery History of carpal tunnel release Hx of neck surgery Social History Social History Smoking status: Never smoker Alcohol intake: current Drinks per week: 4 Substance use: never Lack of Transportation: No Lack of Food: Never True Current Housing: I Have Housing Concerned About Future Housing: No Difficulty Paying Gas/Electric Bills: No Difficulty Paying for Meds: No Currently Unemployed: No Education: High School Diploma/GED Difficulty w/ Childcare or Family Care: No Living arrangements: with family Additional living arrangements comments: Occupation/Education: retired Spiritual care concerns: No Exam Narrative: GENERAL: well-nourished, in mild acute distress. HEAD: Normocephalic, atraumatic. EYES: Non injected, non icteric ENT: Nares clear, no rhinorrhea or epistaxis. Tacky mucous membranes. NECK: Supple. CHEST: Speaking in full sentences. No respiratory distress. HEART: Regular rate and rhythm. . ABDOMEN: Soft, nondistended. Mild generalized tenderness to palpation without rigidity/guarding. EXTREMITIES: Normal range of motion. No lower extremity edema. SKIN: Warm, dry, no rash. NEURO: No focal deficits. Alert and oriented x3. PSYCH: Normal mood and affect. Course Vital Signs Vital signs: Vital Signs Temperature 97.4 F L 03/25/24 10:22 Pulse Rate 93 03/25/24 10:22 Respiratory Rate 20 03/25/24 10:22 Blood Pressure 119/71 03/25/24 10:22 Pulse Oximetry 98 03/25/24 10:22 Temperature 97.4 F L 03/25/24 10:22 Pulse Rate 90 03/25/24 17:26 Respiratory Rate 16 03/25/24 17:26 Blood Pressure 143/95 H 03/25/24 17:26 Pulse Oxim
[2024-03-25] MEDS: FAMOTIDINE 20 MG/2 ML VIAL IV PUSH (14:01)
[2024-03-25] MEDS: MORPHINE SULFATE (*CRX) 4 MG/ML INJ IV PUSH (14:01)
[2024-03-25] MEDS: ONDANSETRON INJ 4 MG/2 ML VIAL IV PUSH (14:01)
[2024-03-25] MEDS: SODIUM CHLORIDE 0.9% IV 1,000 ML 999 ML IV CONT (14:01)
[2024-03-25 14:12] VITALS: BP 164/96; PULSE 80; RESP 13; O2SAT 97
[2024-03-25 14:16] LABS: Basophils Percent Auto 0.3 % (0.2-1.2); Eosinophils Absolute Auto 0.1 K/mm3 (0-0.3); Eosinophils Percent Auto 0.4 % (0-4.4); Hematocrit 48.3 % (42.0-52.0); Hemoglobin 16.5 g/dL (14.0-18.0); Immature Granulocyte Absolute 0.15 K/mm3 (0.00-0.031); Immature Granulocyte Percent A 1.2 % (0-0.5); Lymphocytes Absolute Auto 2.35 K/mm3 (0.9-3.2); Lymphocytes Percent Auto 19.1 % (18.3-44.2); Mean Corpuscular HGB Conc 34.2 g/dl (32-36); Mean Corpuscular Volume 90.8 fl (80-100); Mean Platelet Volume 9.4 fl (7.4-10.4); Monocytes Absolute Auto 1.4 K/mm3 (0.1-0.6); Monocytes Percent Auto 10.9 % (2.6-8.5); Neutrophils Absolute Auto 8.4 K/mm3 (1.3-6.7); Neutrophils Percent Auto 68.1 % (45.5-73.1); Platelet Count Result 326 k/mm3 (150-375); Red Blood Count 5.32 M/mm3 (4.6-6.20); Red Cell Distribution Width 12.8 % (11.5-14.5); White Blood Count 12.3 K/mm3 (4.5-10.0)
[2024-03-25 14:21] LABS: Alanine Aminotransferase 20 U/L (6-50); Albumin Level 2.8 g/dL (3.5-5.1); Alkaline Phosphatase 49 U/L (38-126); Anion Gap 8 mmol/L (4-12); Aspartate Amino Transferase 31 U/L (17-59); Bilirubin,Total 0.7 mg/dL (0.2-1.3); Blood Urea Nitrogen 11 mg/dL (9-20); Carbon Dioxide 28 mmol/L (22-30); Chloride 100 mmol/L (98-107); Estimated CRCL calculation 84 ml/min; Estimated Glomerular Filt Rate > 60; Glucose 96 mg/dL (65-110); Lipase 77 U/L (23-300); Magnesium 1.5 mg/dL (1.6-2.3); Potassium 3.5 mmol/L (3.4-5.0); Sodium 136 mmol/L (137-145)
[2024-03-25] MEDS: MAGNESIUM SULF 1 GM/D5W 100 ML 1 GM/100 ML BAG IVPB (15:48)
[2024-03-25] MEDS: PROCHLORPERAZINE EDISYLATE 10 MG/2 ML VIAL 5 MG IV PUSH (15:49)
[2024-03-25 15:55] VITALS: BP 144/80; PULSE 90; RESP 16; O2SAT 95
[2024-03-25 16:11] LABS: Toxigenic C. Diff NEGATIVE (NEGATIVE)
[2024-03-25] MEDS: SUCRALFATE SUSP 100 MG/ML 10 ML UDC 1000 MG PO (17:01)
[2024-03-25 17:26] VITALS: BP 143/95; PULSE 90; RESP 16; O2SAT 99
== END 2024-03-25 17:28 | disposition home or self-care (01) ==
PROVIDERS: Emergency Provider Student in an Organized Health Care Education/Training Program; PCP Family Medicine
DX: R11.2 Nausea with vomiting, unspecified (principal); K52.9 Noninfective gastroenteritis and colitis, unspecified; K40.90 Unilateral inguinal hernia, without obstruction or gangrene, not specified as recurrent; E88.09 Other disorders of plasma-protein metabolism, not elsewhere classified; E83.42 Hypomagnesemia; D72.829 Elevated white blood cell count, unspecified; J18.9 Pneumonia, unspecified organism; C44.90 Unspecified malignant neoplasm of skin, unspecified; I10 Essential (primary) hypertension; G47.33 Obstructive sleep apnea (adult) (pediatric); Z86.718 Personal history of other venous thrombosis and embolism; Z79.01 Long term (current) use of anticoagulants; Z79.899 Other long term (current) drug therapy
CPT/HCPCS: 36415; 71045; 74177; 80053; 83690; 83735; 85025; 87493; 96361; 96365; 96375; 99284; A9270; J0780; J2270; J2405; J3475; J7030; Q9967

== ENCOUNTER 2024-03-28 12:05 | Outpatient (CLI) | payer MEDICARE, OTHER, SELFPAY ==
[2024-03-28 12:25] VITALS: BP 112/76; PULSE 65; RESP 18; TEMP 36.1; O2SAT 96; BMI 33.4
--- NOTE | 2024-03-28 12:25 | PC.NURSE ---
Patient here for IV fluids. Tolerated IV start fair. Sitting up in recliner with BLE elevated. Denies any needs. Call light at side. in room with patient.
--- NOTE | 2024-03-28 12:30 | PC.NURSE ---
Pharmacist Jennifer calling to clarify order with Dr. Lewis.
[2024-03-28] MEDS: SODIUM CHLORIDE 0.9% IV 1,000 ML 1000 ML IVPB (12:55)
--- NOTE | 2024-03-28 13:55 | PC.NURSE ---
Patient tolerated fluids well. IV site removed, tip intact, dressing applied to site. Patient denies any questions at discharge. Patient left floor ambulatory with .
== END 2024-03-28 13:55 | disposition home or self-care (01) ==
LOC: CHSTREATRM 12:08
PROVIDERS: PCP Family Medicine; Visit Provider Family Medicine
DX: E86.0 Dehydration (principal)
CPT/HCPCS: 96365; J7030

== ENCOUNTER 2024-04-01 15:19 | Outpatient (CLI) | payer MEDICARE, OTHER, SELFPAY ==
--- NOTE | ~2024-04-01 | XR_ITS ---
EXAMINATION: XR chest 2V DATE: 04/01/2024 15:37 INDICATION: Chest pain, cough and shortness of breath TECHNIQUE: frontal and lateral views of the chest were obtained. COMPARISON: Chest radiograph dated 03/25/2024 FINDINGS: Chronic elevation the right hemidiaphragm. No focal airspace opacities, pulmonary edema, pleural effu aleksey or pneumothorax. The cardiomediastinal silhouette is normal. Plate and screw fixation for C5-C7 anterior spinal fusion. IMPRESSION: 1. Chronic elevation of the right hemidiaphragm. No acute cardiopulmonary disease. Reviewed, dictated and finalized at location B. IMPRESSION: 1. Chronic elevation of the right hemidiaphragm. No acute cardiopulmonary disea se.
[2024-04-01 15:40] LABS: Hematocrit 51.9 % (37.0-46.0); Hemoglobin 18.1 g/dL (12.4-15.3); Mean Corpuscular HGB Conc 34.9 g/dL (32-36); Mean Corpuscular Hemoglobin 29.9 pg (27.0-31.0); Mean Corpuscular Volume 85.8 fL (78.0-102.0); Platelet Count Result 405 K/mm3 (150-420); Red Blood Count 6.05 M/mm3 (4.70-6.10); Red Cell Distribution Width 12.3 % (11.6-14.4); White Blood Count 9.3 K/mm3 (4.8-10.8)
[2024-04-01 16:02] LABS: Alanine Aminotransferase 28 U/L (16-63); Albumin Level 2.1 g/dL (3.4-5.0); Alkaline Phosphatase 71 U/L (46-116); Anion Gap 9 mmol/L (4-12); Aspartate Amino Transferase 19 U/L (15-37); Bilirubin,Total 0.7 mg/dL (0.00-1.00); Blood Urea Nitrogen 12 mg/dL (7-18); CRP 2.2 mg/dL (0.0-0.9); Calcium 8.3 mg/dL (8.5-10.1); Carbon Dioxide 31 mmol/L (21-32); Chloride 98 mmol/L (98-108); Estimated Glomerular Filt Rate 58; Glucose 119 mg/dL (70-99); NT Pro B Type Natriuretic Pept 135 pg/mL (0-125); Osmolality Calculated 286 mOsm/kg (285-295); Potassium 2.9 mmol/L (3.5-5.1); Sodium 138 mmol/L (136-145); Total Protein 4.8 g/dL (6.4-8.2); Troponin I 7.2 ng/L (0.00-60.4)
[2024-04-01 16:16] LABS: Thyroid Stimulating Hormone Reflex 3.49 u/IU/mL (0.36-3.74)
[2024-04-01 16:40] LABS: Erythrocyte Sedimentation Rate 2 mm/hr (0-20)
[2024-04-02 11:33] LABS: H pylori Ag Stool RESULT: Not Detected
[2024-04-03 14:19] LABS: Immunoglobulin A 116 mg/dL (70-320); TTG IGA AB <1.0 U/mL
[2024-04-07 14:45] LABS: Trichrome Ova and Parasites STATUS: FINAL
== END 2024-04-01 15:20 | disposition home or self-care (01) ==
LOC: CHSLAB 15:22
PROVIDERS: PCP Nurse Practitioner; Visit Provider Nurse Practitioner
DX: R10.84 Generalized abdominal pain (principal); R11.10 Vomiting, unspecified; R07.9 Chest pain, unspecified; A04.8 Other specified bacterial intestinal infections; R06.02 Shortness of breath; K92.1 Melena; I10 Essential (primary) hypertension; R53.1 Weakness; R91.8 Other nonspecific abnormal finding of lung field
CPT/HCPCS: 36415; 71046; 80053; 82784; 83516; 83880; 84443; 84484; 85027; 85652; 86140; 87045; 87177; 87209; 87269; 87338; 87427; 87449

== ENCOUNTER 2024-04-01 17:38 | Inpatient (IN) | payer MEDICARE, OTHER, SELFPAY ==
--- NOTE | ~2024-04-01 | US_ITS ---
EXAMINATION: US abdomen limited DATE: 04/02/2024 13:54 INDICATION: Nausea and vomiting. Abdominal pain. TECHNIQUE: Multiple grayscale and Doppler ultrasound images of the abdomen were obtained. COMPARISON: CT abdomen and pelvis 04/01/2024 FINDINGS: The visualized portions of the head, body, and tail of the pancreas are normal. There is di ffuse hepatic steatosis. There is normal flow in main portal vein. The gallbladder is distended and c ontains sludge. No gallbladder wall thickening or sonographic Weiner sign. The common duct is normal and measures 6 mm. IMPRESSION: 1. Gallbladder distention, likely secondary to fasting. No specific evidence of acute cholecystitis. 2. Diffuse hepatic steatosis. Reviewed, dictated and finalized at location A.
--- NOTE | ~2024-04-01 | NM_ITS ---
EXAM: NM gastric emptying study DATE: 04/04/2024 13:51 INDICATION: Nausea and vomiting. TECHNIQUE: A gastric emptying study was performed using the methodology of Reyna MONREAL, et al. J Nucl Med 2007; 48:568-572. The patient was given a meal consisting of 2 scrambled eggs labeled with 1.0 m Ci Tc-99m sulfur colloid, 2 slices of toast, two packages of jam, and approximately 120 mL of water. Simultaneous anterior and posterior 1-min images of the abdomen were obtained with the patient supine at multiple time points over a total period of 4 hours. The geometric mean of anterior and posterior views was determined, and the percentage retention was calculated for each time point. COMPARISON: CT abdomen and pelvis 04/01/2024 FINDINGS: Gastric retention of the radiotracer-labeled meal was 68%, 57%, and 45% at the 1-hour, 2-h our, and 4-hour time points, respectively. With this technique, apparent rapid gastric emptying is francisco ggested by <30% gastric retention at 1 hour. Delayed gastric emptying is defined by gastric retention of >90% at 1 hour, >60% retention at 2 hours, or >10% retention at 4 hours. IMPRESSION: 1. Delayed gastric emptying. Reviewed, dictated and finalized at location A.
--- NOTE | ~2024-04-01 | CT_ITS ---
EXAMINATION: CT abdomen pelvis w con DATE: 04/01/2024 19:41 INDICATION: upper abdominal tenderness, vomiting TECHNIQUE: Computed tomography (CT) of the abdomen and pelvis was performed with 100 mL Omnipaque-350 intravenous contrast. Automated exposure control and iterative reconstruction technique were employe d. The dose-length product was 1445.33 mGy-cm. COMPARISON: None. FINDINGS: Lower thorax: Multiple sub-6 mm pulmonary nodules. Calcified right hilar nodes. Right lower lobe volu me loss and atelectasis/scar. Mild coronary artery calcifications. Dilated central pulmonary arteries as can be seen with pulmonary arterial hypertension. Liver: Diffuse fatty infiltration. Subcentimeter left lobe and right lobe hypodensities, likely cysts or hemangiomas. Biliary/Gallbladder: The gallbladder is distended. Hyperdense intraluminal material may represent gal lbladder sludge or excreted contrast. No bile duct dilation. Pancreas: Moderate atrophy. Spleen: Normal. Adrenals:No mass. Kidneys: No suspicious mass, obstructing stone, or hydronephrosis. Punctate right-sided calcification s, nonobstructive. Multiple bilateral hypodensities too small to characterize but most likely represe nt cysts. GI tract: Mild distal esophageal and gastric wall edema. No small or large bowel dilation. Normal mel endix. Diverticulosis without diverticulitis. Mesentery/Peritoneum: No ascites, mass, or free air. Retroperitoneum: No mass. Pelvis: Pelvic organs are within normal limits. Soft Tissues: Small fat-containing umbilical and bilateral inguinal hernias. Status post left inguina l hernia repair. Bones: No acute osseous finding. IMPRESSION: Multiple sub-6 mm pulmonary nodules, likely benign granulomas. If the patient is at high risk conside r an optional follow-up noncontrast low-dose CT of the chest for further evaluation. Chronic right lower lobe atelectasis/scar. Mild esophagitis/gastritis. Hepatic steatosis. Mild gallbladder hydrops, which can be secondary to fasting or obstruction. No surrounding inflammato ry change, obstructing stone/mass, or biliary duct dilation. Correlate with biliary labs. Reviewed, dictated and finalized at location K. IMPRESSION: Multiple sub-6 mm pulmonary nodules, likely benign granulomas. If the patient i s at high risk consider an optional follow-up noncontrast low-dose CT of the ch est for further evaluation. Chronic right lower lobe atelectasis/scar. Mild esophagitis/gastritis. Hepatic steatosis. Mild gallbladder hydrops, which can be secondary to fasting or obstruction. No surrounding inflammatory change, obstructing stone/mass, or biliary duct dilati on. Correlate with biliary labs.
[2024-04-01 17:44] VITALS: BP 135/84; PULSE 117; RESP 20; TEMP 36.3; O2SAT 95
[2024-04-01 19:13] LABS: Basophils Absolute Auto 0.1 K/mm3 (0.0-0.1); Basophils Percent Auto 0.5 % (0.2-1.2); Eosinophils Percent Auto 0.1 % (0-4.4); Hemoglobin 18.2 g/dL (14.0-18.0); Immature Granulocyte Absolute 0.09 K/mm3 (0.00-0.031); Lymphocytes Absolute Auto 1.72 K/mm3 (0.9-3.2); Lymphocytes Percent Auto 18.9 % (18.3-44.2); Mean Corpuscular Hemoglobin 30.4 pg (26-34); Mean Platelet Volume 9.9 fl (7.4-10.4); Monocytes Absolute Auto 1.9 K/mm3 (0.1-0.6); Monocytes Percent Auto 20.3 % (2.6-8.5); Neutrophils Absolute Auto 5.4 K/mm3 (1.3-6.7); Neutrophils Percent Auto 59.2 % (45.5-73.1); Platelet Count Result 413 k/mm3 (150-375); Red Blood Count 5.98 M/mm3 (4.6-6.20); Red Cell Distribution Width 12.7 % (11.5-14.5); White Blood Count 9.1 K/mm3 (4.5-10.0)
[2024-04-01 19:20] LABS: Alanine Aminotransferase 24 U/L (6-50); Albumin Level 2.8 g/dL (3.5-5.1); Alkaline Phosphatase 66 U/L (38-126); Anion Gap 9 mmol/L (4-12); Aspartate Amino Transferase 43 U/L (17-59); Bilirubin,Total 0.8 mg/dL (0.2-1.3); Blood Urea Nitrogen 16 mg/dL (9-20); Calcium 8.6 mg/dL (8.4-10.2); Carbon Dioxide 30 mmol/L (22-30); Chloride 94 mmol/L (98-107); Estimated CRCL calculation 68 ml/min; Estimated Glomerular Filt Rate 60; Glucose 123 mg/dL (65-110); Lipase 122 U/L (23-300); Sodium 133 mmol/L (137-145)
--- NOTE | 2024-04-01 19:32 | ED.RECABL ---
HPI - Recheck/Abnormal Lab/Rx General Chief Complaint: Recheck/Abnormal Lab/Rx Stated Complaint: hypokalemia, weakness, vomiting, diarrhea Time Seen by Provider: 04/01/24 18:16 History of Present Illness HPI narrative: Patient is a 68-year-old male presenting with abnormal labs vomiting. Patient is coming from his gastroenterology clinic. He has had several months of persistent vomiting and diarrhea. He has lost nearly 40 lb in the last several months. He has actually been seen in the ER multiple times in the last week or 2 and has been able to go home but unfortunately his symptoms have persisted. He was seen today in GI clinic and his potassium was low so they advised that he come in for further evaluation. Currently complains of diffuse abdominal pain and persistent nausea. No further complaints. Related Data Home Medications Medication Instructions Recorded Confirmed multivitamin 1 tablet PO DAILY 12/22/22 04/01/24 potassium 99 mg tablet 99 mg PO HS 12/22/22 04/01/24 zinc 50 mg capsule 50 mg PO DAILY 12/22/22 04/01/24 apixaban 5 mg tablet (Eliquis) 5 mg PO BID 04/01/24 04/01/24 diphenoxylate-atropine 2.5 1 tablet PO QID PRN diarrhea 04/01/24 04/01/24 mg-0.025 mg tablet Allergies Allergy/AdvReac Type Severity Reaction Status Date / Time Penicillins Allergy Intermediate Hives Verified 04/01/24 17:40 Review of Systems Review of Systems: All systems reviewed & are unremarkable except as noted in HPI and below PMFSH Past Medical History Medical History Chest pain Hypertension JULIO on CPAP Skin cancer SOB (shortness of breath) Surgical History Surgical History H/O foot surgery H/O knee surgery History of carpal tunnel release Hx of neck surgery Social History Social History Smoking status: Never smoker Alcohol intake: current Drinks per week: 4 Substance use: never Substance use type: does not use Do You Feel Safe in your Home?: Yes Lack of Transportation: No Lack of Food: Never True Current Housing: I Have Housing Concerned About Future Housing: No Difficulty Paying Gas/Electric Bills: No Difficulty Paying for Meds: No Currently Unemployed: No Education: High School Diploma/GED Difficulty w/ Childcare or Family Care: No Living arrangements: with family Additional living arrangements comments: Occupation/Education: retired Spiritual care concerns: No Exam Narrative: GENERAL: Uncomfortable appearing, nontoxic, pleasant and cooperative HEAD: Normocephalic, atraumatic. EYES: PERRLA and EOMI. ENT: Grossly unremarkable NECK: Supple. CHEST: Clear to auscultation. No respiratory distress. HEART: Tachycardic, regular rhythm ABDOMEN: Soft, diffusely tender, worse in the upper abdomen, no guarding or rebound EXTREMITIES: Normal range of motion SKIN: Warm, dry, no rash. NEURO: No focal deficits. Alert and oriented x3. PSYCH: Normal mood and affect. Course Vital Signs Vital signs: Vital Signs Temperature 97.4 F L 04/01/24 17:44 Pulse Rate 117 H 04/01/24 17:44 Respiratory Rate 20 04/01/24 17:44 Blood Pressure 135/84 04/01/24 17:44 Pulse Oximetry 95 04/01/24 17:44 Oxygen Delivery Room Air 04/01/24 17:44 Temperature 97.6 F 04/03/24 06:00 Pulse Rate 79 04/03/24 08:00 Respiratory Rate 14 04/03/24 06:00 Blood Pressure 141/76 H 04/03/24 06:00 Pulse Oximetry 94 04/03/24 06:00 Oxygen Delivery Room Air 04/03/24 09:10 MDM - Recheck/Abnormal Lab/Rx MDM Narrative Medical decision making narrative: 68-year-old male presenting with diarrhea, vomiting. Patient is tachycardic on arrival, otherwise vitals are within normal limits. Blood work with potassium of 3.0. IV repletion has been ordered. UA is unremarkable. CT abdomen pelvis with es
[2024-04-01] MEDS: ONDANSETRON INJ 4 MG/2 ML VIAL IV PUSH (20:01)
[2024-04-01] MEDS: PANTOPRAZOLE SODIUM IV 40 MG VIAL IV PUSH (20:01)
[2024-04-01] MEDS: SODIUM CHLORIDE 0.9% IV 1,000 ML 999 ML IV CONT (20:01)
[2024-04-01 20:09] LABS: Add Urine Microscopic? YES; Appearance Urine Cloudy (Clear); Bilirubin Urine 2+ (Negative); Blood Urine Negative (Negative); Color Urine Dark Yellow (Yellow); Glucose Urine UA Negative (Negative); Ketones Urine 2+ mg/dL (Negative); Leukocyte Esterase Ur Negative LEU/UL (Negative); Nitrate Urine Negative (Negative); Protein Urine 2+ mg/dL (Negative); Specific Grav Ur 1.032 (1.001-1.035)
[2024-04-01 20:14] LABS: RBC Urine 0-2 /hpf (0-2); WBC Urine 0-3 /hpf (0-3)
[2024-04-01 20:15] LABS: Bacteria Urine Trace /hpf; Mucus Urine Few /lpf; Squamous Epithelial Cell Urine Rare /hpf (Few)
[2024-04-01 20:20] LABS: Lactic Acid Reflex 1.5 mmol/L (0.7-2.0)
[2024-04-01 20:26] VITALS: BP 137/81; PULSE 85; RESP 14; O2SAT 96
--- NOTE | 2024-04-01 20:28 | ECG_ITS ---
Test Date: 2024-04-01 21:11:22 Measurements Intervals [place] Rate: 88 P: 30 NE: 143 QRS: -17 QRSD: 101 T: 31 QT: 393 QTc: 477 Interpretive Statements SINUS RHYTHM WITH OCCASIONAL SUPRAVENTRICULAR PREMATURE COMPLEXES NONSPECIFIC ST & T-WAVE ABNORMALITY- INF/LAT LEADS BORDERLINE ECG Compared to ECG 03/24/2024 03:04:23 NO SIGNIFICANT CHANGE Electronically Signed On 04-02-2024 06:27:47 CDT by Kashmir Li D.O.
[2024-04-01] MEDS: POTASSIUM CHLORIDE INJ 40 MEQ in SODIUM CHLORIDE 0.9% IV 500 ML 130 MEQ IVPB (21:03)
[2024-04-01 21:10] LABS: Magnesium 1.9 mg/dL (1.6-2.3)
--- NOTE | 2024-04-01 21:36 | PM.IMHP ---
H&P: HPI History of Present Illness Date/Time: 04/01/24 21:36 Chief Complaint: Nausea vomiting diarrhea abdominal pain Narrative: Mr. Thornton is a pleasant 68-year-old male accompanied by his with past medical history JULIO intolerant to CPAP, hypertension, melanoma on his back status post 1 year of Keytruda. Keytruda completed February 03. 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 He comes in complaining of nausea vomiting of bilious vomit and coffee-ground stool. The diarrhea started soon after he started Keytruda. At some point he was on steroids and improved but the diarrhea again recurred about a month ago and now he is intolerant of food. He also has generalized abdominal pain from vomiting so much. He can only tolerate ice chips. he has had screening colonoscopy on 08/19/[address] Constantino with 4 mm rectal polyp, biopsy showed hyperplastic polyp. No history of EGD performed. He saw his sanitation lead Office on the day of admission on 04/01/2024. KUB and chest x-ray ordered along with anticipated EGD scheduled, CBC CMP troponin BNP. Patient given Protonix 40 mg b.i.d., liquid Carafate metoclopramide. He then presented to [facility]. ER vitals blood pressure 129/74, respiratory rate 16, 95% oxygen saturation on room air, temperature 97.8? F. laboratory evaluation reveals WBC 9.1, hemoglobin 18.2, platelets 413, sodium 133, potassium 3.0, chloride 94, serum creatinine 1.2, glucose 123 Lactic acid 1.5, magnesium 1.9, lipase 122. Urinalysis with 2+ protein 2+ ketones 2+ bilirubin. CT abdomen pelvis demonstrating multiple sub 6 mm pulmonary nodules likely benign granulomas, chronic right lower lobe atelectasis/ scar, mild esophagitis/ gastritis, hepatic steatosis, mild gallbladder hydrops. LFTs within normal limits. C diff PCR negative, pending studies include O and P, IgA, celiac disease interpretation, stool h pylori antigen in the ER he received Zofran 4 mg IV x1, Protonix 40 mg IV x1, 1 L normal saline bolus , potassium chloride 40 mEq. Review of Systems Review of Systems: All systems reviewed & are unremarkable except as noted in HPI and below ( Subjective) [facility] Past Medical History Medical History Chest pain Hypertension JULIO on CPAP Skin cancer SOB (shortness of breath) Surgical History Surgical History H/O foot surgery H/O knee surgery History of carpal tunnel release Hx of neck surgery Social History Social History Smoking status: Never smoker Alcohol intake: current Drinks per week: 4 Substance use: never Substance use type: does not use Do You Feel Safe in your Home?: Yes Lack of Transportation: No Lack of Food: Never True Current Housing: I Have Housing Concerned About Future Housing: No Difficulty Paying Gas/Electric Bills: No Difficulty Paying for Meds: No Currently Unemployed: No Education: High School Diploma/GED Difficulty w/ Childcare or Family Care: No Living arrangements: with family Additional living arrangements comments: Occupation/Education: retired Spiritual care concerns: No Meds Home Medications and Allergies Home Medications Medication Instructions Recorded Confirmed Type multivitamin 1 tablet PO DAILY 12/22/22 04/01/24 History potassium 99 mg tablet 99 mg PO HS 12/22/22 04/01/24 History zinc 50 mg capsule 50 mg PO DAILY 12/22/22 04/01/24 History acetaminophen 500 mg tablet 1,000 mg PO Q6H PRN pain #50 tabs 03/24/24 04/01/24 Rx (Tylenol Extra Strength) ondansetron 4 mg disintegrating 4 mg PO Q8H PRN nausea and 03/24/24 04/01/24 Rx tablet vomiting #10 tabs sucralfate 100 mg/mL oral 1 g (10 mL) PO TID #1,000 mL 03/28/24 04/01/24 Rx suspension apixaban 5 mg tablet (Eliquis) 5 mg PO BID 04/01/24 04/01/24 Histo
[2024-04-01 21:41] VITALS: BMI 33.2
[2024-04-01 21:43] VITALS: BP 129/74; PULSE 84; RESP 16; TEMP 36.6; O2SAT 95
[2024-04-01 21:45] VITALS: PULSE 86
[2024-04-01 22:00] VITALS: BMI 33.2
--- NOTE | 2024-04-01 22:25 | ADMGEN ---
This patient, Austin Thornton, was admitted to 2 Medical Room 256-. Patient/family oriented to hospital policies and general routines including ID bracelet, bed and alarms, visiting hours, pain management, procedures, bathroom and other care routines, personal items, smoking policy, room service/diet, and visiting hours. Information on how to activate the Rapid Response Team has been discussed. Patient/Family are encouraged to report perceived risks to care and to ask questions if they do not understand what they are told or what they should do.
[2024-04-01] MEDS: LACTATED RINGERS 1,000 ML 100 ML IV CONT (23:26)
[2024-04-02] VITALS (10 sets, daily range): BP systolic 131–143; BP diastolic 70–80; PULSE 71–92; RESP 16; TEMP 36.6–36.7; O2SAT 94–95; BMI 33.2
--- NOTE | 2024-04-02 | ECHO_ITS ---
Patient Info Name: Austin Thornton Age: 68 years : 1955 Gender: Male Ht: 72 in Wt: 244 lbs BSA: 2.40 m2 HR: 74 bpm BP: 143 / 77 mmHg Heart Rhythm: Sinus Rhythm Technical Quality: Fair Exam Date: 04/02/2024 4:51 PM Exam Location: Echo Lab Patient Status: Inpatient Admit Date: 04/02/2024 Staff Ordering Physician: Hui Bass APRN Tearoom Host/Hostess: Margarita Devine RDCS Attending Provider: Becky Ryan MD Referring Physician: Shelia SINGH; Exam Type: CA echo doppler color flow Study Info Indications - leg swelling R06.02 - Shortness of breath Complete two-dimensional, color flow and Doppler transthoracic echocardiogram is performed. Summary 1. Left ventricular chamber dimension is normal. 2. Left ventricular systolic function is normal, estimated at 60-65%. 3. The left ventricular diastolic function is grade I diastolic dysfunction. 4. Right ventricular systolic function is normal. 5. There is mild tricuspid valve regurgitation. Left Ventricle Left ventricular chamber dimension is normal. Left ventricular systolic function is normal, estimated at 60-65%. There is no increased left ventricular wall thickness. The left ventricular diastolic function is grade I diastolic dysfunction. Right Ventricle Right ventricular chamber dimension is normal. Right ventricular systolic function is normal. Left Atria Left atrial chamber dimension is normal. Right Atria Right atrial chamber dimension is normal. Atrial Septum Intact interatrial septum visualized by color flow imaging. Aortic Valve The aortic valve is not well visualized. There is no aortic valve stenosis. There is no aortic valve regurgitation. There is mild aortic valve calcification. Pulmonic Valve The pulmonic valve is not well visualized. There is trace pulmonic regurgitation. Mitral Valve There is trace mitral valve regurgitation. Tricuspid Valve There is mild tricuspid valve regurgitation. Pericardium/Pleural The pericardium appears epicardial fat pad. There is no pericardial effusion. Inferior Vena Cava Normal inferior vena cava with >50% collapse upon inspiration consistent with normal right atrial pressure, 3 mmHg. Aorta The aortic root size at the sinus of Valsalva is normal. Left Ventricular Outflow Tract Name Value Normal LVOT 2D LVOT Diameter 2.0 cm LVOT Doppler LVOT Peak Gradient 5 mmHg LVOT Mean Gradient 2 mmHg LVOT VTI 20 cm LVOT VTI/AV VTI Ratio 1.1 LVOT Stroke Volume 65 ml LVOT CO 4.4 l/min LVOT CI 1.8 l/min/m2 Pulmonic Valve Name Value Normal PV Doppler PV Peak Gradient 6 mmHg PV Regurgitation Doppler MS Peak End Santana
[2024-04-02] MEDS: ONDANSETRON INJ 4 MG/2 ML VIAL IV PUSH ×4 (04:16→20:13)
[2024-04-02 06:40] LABS: Basophils Absolute Auto 0.1 K/mm3 (0.0-0.1); Basophils Percent Auto 0.9 % (0.2-1.2); Eosinophils Percent Auto 0.3 % (0-4.4); Hemoglobin 15.4 g/dL (14.0-18.0); Immature Granulocyte Absolute 0.09 K/mm3 (0.00-0.031); Immature Granulocyte Percent A 1.2 % (0-0.5); Lymphocytes Absolute Auto 1.95 K/mm3 (0.9-3.2); Lymphocytes Percent Auto 26.4 % (18.3-44.2); Mean Corpuscular HGB Conc 33.5 g/dl (32-36); Mean Corpuscular Hemoglobin 30.1 pg (26-34); Mean Corpuscular Volume 89.8 fl (80-100); Mean Platelet Volume 9.5 fl (7.4-10.4); Monocytes Absolute Auto 1.6 K/mm3 (0.1-0.6); Monocytes Percent Auto 21.4 % (2.6-8.5); Neutrophils Absolute Auto 3.7 K/mm3 (1.3-6.7); Neutrophils Percent Auto 49.8 % (45.5-73.1); Platelet Count Result 309 k/mm3 (150-375); Red Blood Count 5.12 M/mm3 (4.6-6.20); Red Cell Distribution Width 12.8 % (11.5-14.5); White Blood Count 7.4 K/mm3 (4.5-10.0)
[2024-04-02 06:49] LABS: Anion Gap 7 mmol/L (4-12); Blood Urea Nitrogen 14 mg/dL (9-20); Calcium 7.7 mg/dL (8.4-10.2); Carbon Dioxide 28 mmol/L (22-30); Chloride 98 mmol/L (98-107); Estimated CRCL calculation 90 ml/min; Estimated Glomerular Filt Rate > 60; Glucose 92 mg/dL (65-110); INR 1.1; Magnesium 1.9 mg/dL (1.6-2.3); Sodium 133 mmol/L (137-145)
[2024-04-02 06:50] LABS: Partial Thromboplastin Time 41.1 Seconds (22.3-36.8)
--- NOTE | 2024-04-02 08:28 | WPDGICN ---
Assessment and Plan Assessment and plan (1) Nausea & vomiting: Code(s): R11.2 - Nausea with vomiting, unspecified Status: Inactive Assessment and Plan: Having nausea and vomiting along with coffee-ground stools and sour taste in his mouth x1 month along with generalized abdominal pain with palpation. CT of the abdomen and pelvis noted mild esophagitis and gastritis and gallbladder hydrops, no bowel obstruction noted. He has been unable to tolerate any p.o. solids or liquids and has lost 35 lbs since January. Never has had EGD. Nausea improves with Zofran. H&H stable, no anemia. Coffee ground stool continues, not necessarily black. -EGD to be arranged today, has not had Eliquis for 4 days or so. -Continue pantoprazole 40 mg BID -Continue Zofran, consider adding Reglan if needed -Further recs to follow EGD (2) Diarrhea: Code(s): R19.7 - Diarrhea, unspecified Status: Acute Assessment and Plan: Having coffee grounds stools, up to 15 times per day. Had C diff negative, other stool studies pending. CT with no bowel inflammation to suggest colitis. Last colonoscopy in 2012. -Anticipate colonoscopy but since unable to keep solids or liquids down might be difficult, consider outpatient or inpatient if symptomatically he improves -Supportive tx (3) Hypokalemia: Code(s): E87.6 - Hypokalemia Status: Acute Assessment and Plan: K 3.0 this am despite IV K, likley due to vomiting and diarrhea Treat per hospitalist. (4) Dysphagia: Code(s): R13.10 - Dysphagia, unspecified Status: Acute (5) Abnormal CT scan, gallbladder: Code(s): R93.2 - Abnormal findings on diagnostic imaging of liver and biliary tract Status: Acute Assessment and Plan: Repeat CT noted mild gallbladder hydrops, which be secondary to fasting or obstruction with no surrounding inflammatory change or biliary ductal dilation. His LFTs are normal. -will get a limited right upper quadrant ultrasound to further evaluate. (6) Weight loss: Code(s): R63.4 - Abnormal weight loss Status: Acute (7) Generalized abdominal pain: Code(s): R10.84 - Generalized abdominal pain Status: Acute Assessment and Plan: Has epigastric, RUQ and LUQ pain with palpation -EGD to be arranged -US of gallbladder (8) Black stools: Code(s): K92.1 - Melena Status: Acute Assessment and Plan: Coffee ground stools, not necessarily black. H&H stable EGD to be arranged today -Monitor (9) DVT (deep venous thrombosis): Code(s): I82.409 - Acute embolism and thrombosis of unspecified deep veins of unspecified lower extremity Status: Acute Assessment and Plan: History of RL extremity DVT, on Eliquis (has been on hold 3-4 days per patient) (10) History of malignant melanoma: Code(s): Z85.820 - Personal history of malignant melanoma of skin Status: Acute Assessment and Plan: Was Keytruda and stopped this in January GI Consult Note Consult date/time: 04/02/24 08:28 Reason for consult: nausea, vomiting, diarrhea and abdominal pain. HPI: Admitted for nausea, vomiting, diarrhea and hypokalemia. He was seen yesterday by myself and the GI clinic at [facility] for the symptoms. We ended up checking a CMP and was found to have a potassium of 2.9 and was advised to go to [facility] ER, for which then he was admitted. Repeat CT scan of the abdomen pelvis with contrast noted mild esophagitis and gastritis along with gallbladder distension and hyperdense intraluminal material may represent sludge for excreted, no evidence of biliary ductal dilation or dilation of the intestines. His LFTs are normal. Today, he denies any abdominal pain except for palpation of the abdomen. He reports around 4:00 a.m. he woke up with nausea with a bad taste in his mouth and was given IV Zofran which states helped his symptoms. He is tolerating ice chips which st
[2024-04-02] MEDS: PANTOPRAZOLE SODIUM IV 40 MG VIAL IV PUSH ×2 (09:47→20:12)
--- NOTE | 2024-04-02 09:50 | P.PNIM_ITS ---
Progress Note: A&P Assessment and Plan (1) Acute gastritis: Code(s): K29.00 - Acute gastritis without bleeding Status: Acute Assessment and Plan: 04/02/24: * Abdomen/pelvis CT showed multiple sub 6 mm pulmonary nodules likely benign granulomas, mild esophagitis/gastritis, hepatic steatosis, mild gallbladder hydrops which can be secondary to fasting or obstruction. * GI consulted and plans to take patient for EGD today * Ultrasound of right upper quadrant ordered * Continue nausea and pain control * Stool culture and labs obtained * Continue NPO status * Continue LR at 100 ml per hour * Hypoglycemic protocol in place * Hold Eliquis, (patient takes for history of DVT) (2) Colitis: Code(s): K52.9 - Noninfective gastroenteritis and colitis, unspecified Status: Acute Assessment and Plan: See above (3) Diarrhea: Code(s): R19.7 - Diarrhea, unspecified Status: Acute Assessment and Plan: See above (4) Hypokalemia: Code(s): E87.6 - Hypokalemia Status: Acute Assessment and Plan: 04/02/24: * Likely secondary to excessive vomiting and diarrhea * Potassium 3.0 today * Will give 80 mEq of potassium today * Continue cardiac monitoring (5) SOB (shortness of breath): Code(s): R06.02 - Shortness of breath Status: Acute Assessment and Plan: 04/02/24: * Reporting SOB for a few months now with associated leg swelling * He was suppose to follow up with Cardiology at [place] however has been too sick to keep appointment. Plan was for echo. * Will obtain echo today * Consider cardiology consult if needed post echo * Currently being treated for DVT in [facility], on eliquis however unable to take the last 5 days due to nausea and vomiting. (6) DVT (deep venous thrombosis): Code(s): I82.409 - Acute embolism and thrombosis of unspecified deep veins of unspecified lower extremity Status: Acute Assessment and Plan: 04/02/24: * Currently being treated for DVT in [facility] * Eliquis on hold for EGD * Patient has admitted that he has missed the last 5 days worth of medication due to nausea/vomiting (7) Weight loss, unintentional: Code(s): R63.4 - Abnormal weight loss Status: Acute Assessment and Plan: 04/02/24: * Patient reports 35 pound weight loss in the past 2 months. * Sample Case Porter consulted * GI planning for EGD today * Consider colonoscopy when he can tolerate po * Currently NPO for EGD Time Spent With Patient Time with patient: Greater than 35 minutes Subjective Date/time seen: 04/02/24 09:50 Interval history: Interval history: This is a 68-year-old male who presented to the hospital on 04/01/2024 with complaints of nausea, vomiting, diarrhea, abdominal pain. Workup in the hospital includes a chest x-ray which showed chronic elevation of the right hemidiaphragm, no acute cardiopulmonary disease. Abdomen pelvis CT shown mult iple sub 6 mm pulmonary nodules likely benign granulomas, chronic right lower lobe atelectasis, mild esophagitis/gastritis, hepatic steatosis, mild gallbladder hydrops which can be secondary to fasting or obstruction. Initial labs showed a normal white blood cell count of 9.3, sodium 138, potassium 2.9, chloride 98, EGFR 58, C reactive protein 2.2, proBNP 135, lipase normal at 122, TSH 3.49. He was obtained and showed cloudy appearance, 2+ urine protein, 2+ ketone, 2+ urine bili. Stool culture was obtained for H pylori, ova & parasite, E coli, salmon Arielle, Campylobacter antigen assay, Giardia Antigen. Patient was given 1 L of normal
--- NOTE | 2024-04-02 09:50 | PM.IMPN ---
Progress Note: A&P Assessment and Plan (1) Acute gastritis: Code(s): K29.00 - Acute gastritis without bleeding Status: Acute Assessment and Plan: 04/02/24: Abdomen/pelvis CT showed multiple sub 6 mm pulmonary nodules likely benign granulomas, mild esophagitis/gastritis, hepatic steatosis, mild gallbladder hydrops which can be secondary to fasting or obstruction. GI consulted and plans to take patient for EGD today Ultrasound of right upper quadrant ordered Continue nausea and pain control Stool culture and labs obtained Continue NPO status Continue LR at 100 ml per hour Hypoglycemic protocol in place Hold Eliquis, (patient takes for history of DVT) (2) Colitis: Code(s): K52.9 - Noninfective gastroenteritis and colitis, unspecified Status: Acute Assessment and Plan: See above (3) Diarrhea: Code(s): R19.7 - Diarrhea, unspecified Status: Acute Assessment and Plan: See above (4) Hypokalemia: Code(s): E87.6 - Hypokalemia Status: Acute Assessment and Plan: 04/02/24: Likely secondary to excessive vomiting and diarrhea Potassium 3.0 today Will give 80 mEq of potassium today Continue cardiac monitoring (5) SOB (shortness of breath): Code(s): R06.02 - Shortness of breath Status: Acute Assessment and Plan: 04/02/24: Reporting SOB for a few months now with associated leg swelling He was suppose to follow up with Cardiology at [place] however has been too sick to keep appointment. Plan was for echo. Will obtain echo today Consider cardiology consult if needed post echo Currently being treated for DVT in [facility], on eliquis however unable to take the last 5 days due to nausea and vomiting. (6) DVT (deep venous thrombosis): Code(s): I82.409 - Acute embolism and thrombosis of unspecified deep veins of unspecified lower extremity Status: Acute Assessment and Plan: 04/02/24: Currently being treated for DVT in [facility] Eliquis on hold for EGD Patient has admitted that he has missed the last 5 days worth of medication due to nausea/vomiting (7) Weight loss, unintentional: Code(s): R63.4 - Abnormal weight loss Status: Acute Assessment and Plan: 04/02/24: Patient reports 35 pound weight loss in the past 2 months. Customer Support Representative consulted GI planning for EGD today Consider colonoscopy when he can tolerate po Currently NPO for EGD Time Spent With Patient Time with patient: Greater than 35 minutes Subjective Date/time seen: 04/02/24 09:50 Interval history: Interval history: This is a 68-year-old male who presented to the hospital on 04/01/2024 with complaints of nausea, vomiting, diarrhea, abdominal pain. Workup in the hospital includes a chest x-ray which showed chronic elevation of the right hemidiaphragm, no acute cardiopulmonary disease. Abdomen pelvis CT shown multiple sub 6 mm pulmonary nodules likely benign granulomas, chronic right lower lobe atelectasis, mild esophagitis/gastritis, hepatic steatosis, mild gallbladder hydrops which can be secondary to fasting or obstruction. Initial labs showed a normal white blood cell count of 9.3, sodium 138, potassium 2.9, chloride 98, EGFR 58, C reactive protein 2.2, proBNP 135, lipase normal at 122, TSH 3.49. He was obtained and showed cloudy appearance, 2+ urine protein, 2+ ketone, 2+ urine bili. Stool culture was obtained for H pylori, ova & parasite, E coli, salmon Arielle, Campylobacter antigen assay, Giardia Antigen. Patient was given 1 L of normal saline, 40 mg IV push Protonix, Zofran, and 40 mEq of potassium while in the ED. GI was consulted and plans for ultrasound of the right upper quadrant and EGD today. Subjective: Patient denies any fever, chills, chest pain. Patient endorses nausea, vomiting, diarrhea, abdominal pain, and shortness of breath with exertion. Patient states that he lost 35 pounds in the last 3 months and this is his 3rd time
[2024-04-02] MEDS: LACTATED RINGERS 1,000 ML 100 ML IV CONT ×2 (11:51→23:47)
[2024-04-02] MEDS: ACETAMINOPHEN 325 MG TABLET 650 MG PO (12:54)
--- NOTE | 2024-04-02 13:09 | P.PNIM_ITS ---
Progress Note: A&P Assessment and Plan (1) Acute gastritis: Code(s): K29.00 - Acute gastritis without bleeding Status: Acute Assessment and Plan: 04/02/24: * Abdomen/pelvis CT showed multiple sub 6 mm pulmonary nodules likely benign granulomas, mild esophagitis/gastritis, hepatic steatosis, mild gallbladder hydrops which can be secondary to fasting or obstruction. * GI consulted and plans to take patient for EGD today * Ultrasound of right upper quadrant ordered * Continue nausea and pain control * Stool culture and labs obtained * Continue NPO status * Continue LR at 100 ml per hour * Hypoglycemic protocol in place * Hold Eliquis, (patient takes for history of DVT) 04/03/24: * EGD today * GI following (2) Colitis: Code(s): K52.9 - Noninfective gastroenteritis and colitis, unspecified Status: Acute Assessment and Plan: See above (3) Diarrhea: Code(s): R19.7 - Diarrhea, unspecified Status: Acute Assessment and Plan: See above (4) Hypokalemia: Code(s): E87.6 - Hypokalemia Status: Acute Assessment and Plan: 04/02/24: * Likely secondary to excessive vomiting and diarrhea * Potassium 3.0 today * Will give 80 mEq of potassium today * Continue cardiac monitoring 04/03/24: * Potassium level today 2.9 * Will give 40 meq of KCL IV * Will add 40KCL to maint. IVF (5) CHF (congestive heart failure): Code(s): I50.9 - Heart failure, unspecified Status: Acute Assessment and Plan: 04/02/24: * Reporting SOB for a few months now with associated leg swelling * He was suppose to follow up with Cardiology at [place] however has been too sick to keep appointment. Plan was for echo. * Will obtain echo today * Consider cardiology consult if needed post echo * Currently being treated for DVT in [facility], on eliquis however unable to take the last 5 days due to nausea and vomiting. 04/03/24: * Echo shown normal LV systolic function with an estimated EF of 60-65%, grade 1 diastolic dysfunction (6) DVT (deep venous thrombosis): Code(s): I82.409 - Acute embolism and thrombosis of unspecified deep veins of unspecified lower extremity Status: Acute Assessment and Plan: 9/18/24: * Currently being treated for DVT in [facility] * Eliquis on hold for EGD * Patient has admitted that he has missed the last 5 days worth of medication due to nausea/vomiting 04/03/24: * Continue to hold Eliquis for EGD today (7) Weight loss, unintentional: Code(s): R63.4 - Abnormal weight loss Status: Acute Assessment and Plan: 04/02/24: * Patient reports 35 pound weight loss in the past 2 months. * Room Cleaner consulted * GI planning for EGD today * Consider colonoscopy when he can tolerate po * Currently NPO for EGD 04/03/24: * Moderate protein calorie malnutrition * GI following * Currently NPO * Will likely need supplements once taking po * Room Cleaner following Time Spent With Patient Time with patient: Greater than 35 minutes Subjective Date/time seen: 04/02/24 13:09 Interval history: Interval history: This is a 68-year-old male who presented to the hospital on 04/01/2024 with complaints of nausea, vomiting, diarrhea, abdominal pain. Workup in the hospital includes a chest x-ray which showed chronic elevation of the right hemidiaphragm, no acute cardiopulmonary disease. Abdomen pelvis CT shown multiple sub 6 mm pulmonary nodules likely benign granulomas, chronic right lower lobe atelectasis, m
--- NOTE | 2024-04-02 13:09 | PM.IMPN ---
Progress Note: A&P Assessment and Plan (1) Acute gastritis: Code(s): K29.00 - Acute gastritis without bleeding Status: Acute Assessment and Plan: 04/02/24: Abdomen/pelvis CT showed multiple sub 6 mm pulmonary nodules likely benign granulomas, mild esophagitis/gastritis, hepatic steatosis, mild gallbladder hydrops which can be secondary to fasting or obstruction. GI consulted and plans to take patient for EGD today Ultrasound of right upper quadrant ordered Continue nausea and pain control Stool culture and labs obtained Continue NPO status Continue LR at 100 ml per hour Hypoglycemic protocol in place Hold Eliquis, (patient takes for history of DVT) 04/03/24: EGD today GI following (2) Colitis: Code(s): K52.9 - Noninfective gastroenteritis and colitis, unspecified Status: Acute Assessment and Plan: See above (3) Diarrhea: Code(s): R19.7 - Diarrhea, unspecified Status: Acute Assessment and Plan: See above (4) Hypokalemia: Code(s): E87.6 - Hypokalemia Status: Acute Assessment and Plan: 04/02/24: Likely secondary to excessive vomiting and diarrhea Potassium 3.0 today Will give 80 mEq of potassium today Continue cardiac monitoring 04/03/24: Potassium level today 2.9 Will give 40 meq of KCL IV Will add 40KCL to maint. IVF (5) CHF (congestive heart failure): Code(s): I50.9 - Heart failure, unspecified Status: Acute Assessment and Plan: 04/02/24: Reporting SOB for a few months now with associated leg swelling He was suppose to follow up with Cardiology at [place] however has been too sick to keep appointment. Plan was for echo. Will obtain echo today Consider cardiology consult if needed post echo Currently being treated for DVT in [facility], on eliquis however unable to take the last 5 days due to nausea and vomiting. 04/03/24: Echo shown normal LV systolic function with an estimated EF of 60-65%, grade 1 diastolic dysfunction (6) DVT (deep venous thrombosis): Code(s): I82.409 - Acute embolism and thrombosis of unspecified deep veins of unspecified lower extremity Status: Acute Assessment and Plan: 04/02/24: Currently being treated for DVT in [facility] Eliquis on hold for EGD Patient has admitted that he has missed the last 5 days worth of medication due to nausea/vomiting 04/03/24: Continue to hold Eliquis for EGD today (7) Weight loss, unintentional: Code(s): R63.4 - Abnormal weight loss Status: Acute Assessment and Plan: 04/02/24: Patient reports 35 pound weight loss in the past 2 months. Air Hoist Operator consulted GI planning for EGD today Consider colonoscopy when he can tolerate po Currently NPO for EGD 04/03/24: Moderate protein calorie malnutrition GI following Currently NPO Will likely need supplements once taking po Air Hoist Operator following Time Spent With Patient Time with patient: Greater than 35 minutes Subjective Date/time seen: 04/02/24 13:09 Interval history: Interval history: This is a 68-year-old male who presented to the hospital on 04/01/2024 with complaints of nausea, vomiting, diarrhea, abdominal pain. Workup in the hospital includes a chest x-ray which showed chronic elevation of the right hemidiaphragm, no acute cardiopulmonary disease. Abdomen pelvis CT shown multiple sub 6 mm pulmonary nodules likely benign granulomas, chronic right lower lobe atelectasis, mild esophagitis/gastritis, hepatic steatosis, mild gallbladder hydrops which can be secondary to fasting or obstruction. Initial labs showed a normal white blood cell count of 9.3, sodium 138, potassium 2.9, chloride 98, EGFR 58, C reactive protein 2.2, proBNP 135, lipase normal at 122, TSH 3.49. He was obtained and showed cloudy appearance, 2+ urine protein, 2+ ketone, 2+ urine bili. Stool culture was obtained for H pylori, ova & parasite, E coli, salmon Arielle, Campylobacter antigen as
--- NOTE | 2024-04-02 15:23 | SUR.PREOP ---
1523 Katerina Corbett Med RN called regarding moving pt to tomorrow due to anesthesia availability this afternoon. Katerina voiced calling the pt's povider to get diet order.
[2024-04-02] MEDS: BISACODYL 5 MG TABLET EC 20 MG PO (17:48)
[2024-04-02] MEDS: polyethylene glycoL 3350 238 GM BOTTLE PO (18:44)
[2024-04-03] VITALS (11 sets, daily range): BP systolic 104–174; BP diastolic 46–101; PULSE 67–81; RESP 14–21; TEMP 36.3–36.8; O2SAT 90–98
[2024-04-03] MEDS: ONDANSETRON INJ 4 MG/2 ML VIAL IV PUSH ×5 (01:11→22:13)
--- NOTE | 2024-04-03 01:26 | PC.NURSE ---
PT STRUGGLING TO COMPLETE BOWEL PREP. NOT TOLERATING THE GATORADES. PT CONTINUES TO BE NAUSEOUS AND IS VOMITING UP PREP. PT STATES STOOL IS CURRENTLY THIN LIQUID BUT DARK IN COLOR. ENCOURAGED PT TO FINISH MUCH THE PREP POSSIBLE BUT IT IS CLEAR PT IS EXTREMELY UNCOMFORTABLE.
--- NOTE | 2024-04-03 06:38 | P.CDI_ITS ---
CDI Query Clarification Request BMI: 33.2 Nutritional Diagnostic Statement: Please refer to the comprehensive nutrition assessment for further information. If you agree with diagnosis of Moderate protein calorie malnutrition related to chronic nausea, vomiting, loss of appetite as evidenced by intakes <75% needs >1 month; weight loss 10%/6 months; mild muscle wasting and fat loss. Please specify severity if known: * Mild * Moderate * Severe * Other/Unknown <Sarah Branch RN - Last Filed: 04/03/24 06:39> Clarified Diagnosis Clarified Diagnosis: Moderate <Hui Bass APRN - Last Filed: 04/03/24 07:35>
[2024-04-03 08:40] LABS: Basophils Percent Auto 0.2 % (0.2-1.2); Eosinophils Absolute Auto 0.1 K/mm3 (0-0.3); Eosinophils Percent Auto 0.5 % (0-4.4); Hematocrit 48.3 % (42.0-52.0); Hemoglobin 15.8 g/dL (14.0-18.0); Immature Granulocyte Absolute 0.24 K/mm3 (0.00-0.031); Immature Granulocyte Percent A 2.3 % (0-0.5); Lymphocytes Absolute Auto 2.19 K/mm3 (0.9-3.2); Mean Corpuscular HGB Conc 32.7 g/dl (32-36); Mean Corpuscular Hemoglobin 29.5 pg (26-34); Mean Corpuscular Volume 90.3 fl (80-100); Mean Platelet Volume 8.9 fl (7.4-10.4); Monocytes Absolute Auto 1.8 K/mm3 (0.1-0.6); Monocytes Percent Auto 17.4 % (2.6-8.5); Neutrophils Absolute Auto 6.1 K/mm3 (1.3-6.7); Neutrophils Percent Auto 58.6 % (45.5-73.1); Platelet Count Result 347 k/mm3 (150-375); Red Blood Count 5.35 M/mm3 (4.6-6.20); Red Cell Distribution Width 12.9 % (11.5-14.5); White Blood Count 10.4 K/mm3 (4.5-10.0)
[2024-04-03 09:02] LABS: Alanine Aminotransferase 21 U/L (6-50); Albumin Level 2.3 g/dL (3.5-5.1); Alkaline Phosphatase 54 U/L (38-126); Anion Gap 5 mmol/L (4-12); Aspartate Amino Transferase 28 U/L (17-59); Bilirubin,Total 0.5 mg/dL (0.2-1.3); Blood Urea Nitrogen 12 mg/dL (9-20); Calcium 7.7 mg/dL (8.4-10.2); Carbon Dioxide 32 mmol/L (22-30); Chloride 94 mmol/L (98-107); Estimated CRCL calculation 90 ml/min; Estimated Glomerular Filt Rate > 60; Glucose 95 mg/dL (65-110); Potassium 2.9 mmol/L (3.4-5.0); Sodium 131 mmol/L (137-145)
[2024-04-03] MEDS: PANTOPRAZOLE SODIUM IV 40 MG VIAL IV PUSH (09:11)
[2024-04-03 10:02] LABS: Platelet Estimate Adequate (Adequate); Schistocytes None Seen
[2024-04-03] MEDS: LACTATED RINGERS 1,000 ML 150 ML IV CONT ×2 (13:22→14:00)
--- NOTE | 2024-04-03 13:33 | WPDANESEPPF ---
Anes - Initial Pre Proc Eval Procedure: Operation Date: 04/03/24 14:00 Proposed Procedures p Esophagogastroduodenoscopy & Colonoscopy - Jason Bah MD Date/Time: 04/03/24 13:33 Surgeon: Becky Ryan MD Pre Op Diagnosis: Hypokalemia/Vomiting Patient Data Age: 68 Gender: M Height: 1.83 m Weight: 111.1 kg Last Vital Signs Temp 97.4 F L 04/03/24 13:19 Pulse 76 04/03/24 13:19 Resp 20 04/03/24 13:19 BP 132/74 04/03/24 13:19 Pulse Ox 97 04/03/24 13:19 O2 Del Method Room Air 04/03/24 13:19 Allergies Allergy/AdvReac Type Severity Reaction Status Date / Time Penicillins Allergy Intermediate Hives Verified 04/01/24 17:40 Home Medications Medication Instructions Recorded Confirmed Type multivitamin 1 tablet PO DAILY 12/22/22 04/01/24 History potassium 99 mg tablet 99 mg PO HS 12/22/22 04/01/24 History zinc 50 mg capsule 50 mg PO DAILY 12/22/22 04/01/24 History acetaminophen 500 mg tablet 1,000 mg PO Q6H PRN pain #50 tabs 03/24/24 04/01/24 Rx (Tylenol Extra Strength) ondansetron 4 mg disintegrating 4 mg PO Q8H PRN nausea and 03/24/24 04/01/24 Rx tablet vomiting #10 tabs sucralfate 100 mg/mL oral 1 g (10 mL) PO TID #1,000 mL 03/28/24 04/01/24 Rx suspension apixaban 5 mg tablet (Eliquis) 5 mg PO BID 04/01/24 04/01/24 History diphenoxylate-atropine 2.5 1 tablet PO QID PRN diarrhea 04/01/24 04/01/24 History mg-0.025 mg tablet metoclopramide HCl 5 mg tablet 5 mg PO .every 8 hours #60 tabs 04/01/24 04/01/24 Rx (Reglan) pantoprazole 40 mg tablet,delayed 40 mg PO BID #60 tabs 04/01/24 04/01/24 Rx release Laboratory Tests 04/03/24 08:30 WBC 10.4 H K/mm3 (4.5-10.0) RBC 5.35 M/mm3 (4.6-6.20) Hgb 15.8 g/dL (14.0-18.0) Hct 48.3 % (42.0-52.0) MCV 90.3 fl (80-100) MCH 29.5 pg (26-34) MCHC 32.7 g/dl (32-36) RDW 12.9 % (11.5-14.5) Plt Count 347 k/mm3 (150-375) MPV 8.9 fl (7.4-10.4) Immature Gran % (Auto) 2.3 H % (0-0.5) Neut % (Auto) 58.6 % (45.5-73.1) Lymph % (Auto) 21.0 % (18.3-44.2) [place] % (Auto) 17.4 H % (2.6-8.5) Eos % (Auto) 0.5 % (0-4.4) Baso % (Auto) 0.2 % (0.2-1.2) Lymph # (Auto) 2.19 K/mm3 (0.9-3.2) [place] # (Auto) 1.8 H K/mm3 (0.1-0.6) Eos # (Auto) 0.1 K/mm3 (0-0.3) Baso # (Auto) 0.0 K/mm3 (0.0-0.1) Abs Immat Gran (auto) 0.24 H K/mm3 (0.00-0.031) Absolute Neuts (auto) 6.1 K/mm3 (1.3-6.7) Absolute Nucleated RBC 0.000 K/mm3 (0.0-0.012) Nucleated RBC % 0.0 % (0.0-0.2) Platelet Estimate Adequate (Adequate) Schistocytes None seen Sodium 131 L mmol/L (137-145) Potassium 2.9 L mmol/L (3.4-5.0) Chloride 94 L mmol/L (98-107) Carbon Dioxide 32 H mmol/L (22-30) Anion Gap 5 mmol/L (4-12) BUN 12 mg/dL (9-20) Creatinine 0.90 mg/dL (0.7-1.3) Estim Creat Clear Calc 90 ml/min Estimated GFR > 60 (59 - ) Glucose 95 mg/dL (65-110) Calcium 7.7 L mg/dL (8.4-10.2) Total Bilirubin 0.5 mg/dL (0.2-1.3) AST 28 U/L (17-59) ALT 21 U/L (6-50) Alkaline Phosphatase 54 U/L (38-126) Total Protein 4.0 L g/dL (6.3-8.2) Albumin 2.3 L g/dL (3.5-5.1) Patient hx anesthesia problems: none Family hx anesthesia problems: none Results Review: All pre-operative results and documents have been reviewed as part of the pre-operative evaluation. [facility] Past Medical History Medical History Chest pain Hypertension JULIO on CPAP Skin cancer SOB (shortness of breath) Surgical History Surgical History H/O foot surgery H/O knee surgery History of carpal tunnel release Hx of neck surgery Social History Social History Smoking status: Never smoker
--- NOTE | 2024-04-03 14:27 | SUR.OPER ---
egd start 1415 end 1421 colonoscopy start 1426
[2024-04-03] MEDS: POTASSIUM CHLORIDE INJ 40 MEQ in LACTATED RINGERS 1,000 ML 100 MEQ IV CONT (15:24)
[2024-04-03] MEDS: POTASSIUM CHLORIDE INJ 40 MEQ in SODIUM CHLORIDE 0.9% IV 500 ML 130 MEQ IVPB (15:25)
[2024-04-03] MEDS: ACETAMINOPHEN 325 MG TABLET 650 MG PO (22:12)
[2024-04-04] VITALS (10 sets, daily range): BP systolic 125–143; BP diastolic 67–79; PULSE 70–94; RESP 16–18; TEMP 36.4–36.8; O2SAT 94–98
[2024-04-04] MEDS: POTASSIUM CHLORIDE INJ 40 MEQ in LACTATED RINGERS 1,000 ML 100 MEQ IV CONT ×2 (05:17→19:25)
--- NOTE | 2024-04-04 08:03 | P.PNIM_ITS ---
Progress Note: A&P Assessment and Plan (1) Acute gastritis: Code(s): K29.00 - Acute gastritis without bleeding Status: Acute Assessment and Plan: 04/02/24: * Abdomen/pelvis CT showed multiple sub 6 mm pulmonary nodules likely benign granulomas, mild esophagitis/gastritis, hepatic steatosis, mild gallbladder hydrops which can be secondary to fasting or obstruction. * GI consulted and plans to take patient for EGD today * Ultrasound of right upper quadrant ordered * Continue nausea and pain control * Stool culture and labs obtained * Continue NPO status * Continue LR at 100 ml per hour * Hypoglycemic protocol in place * Hold Eliquis, (patient takes for history of DVT) 04/03/24: * EGD and colonoscopy today * GI following 04/04/24: * EGD with essentially normal however they did biopsy the distal and the esophagus * Colonoscopy was essentially normal, only shown diverticulosis without perforation, no diverticulitis * Plan for nuclear medicine gastric emptying study today * Stool cultures were negative * H pylori was negative * Ova and parasites are still pending * GI still following (2) Colitis: Code(s): K52.9 - Noninfective gastroenteritis and colitis, unspecified Status: Acute Assessment and Plan: See above (3) Diarrhea: Code(s): R19.7 - Diarrhea, unspecified Status: Acute Assessment and Plan: See above (4) Hypokalemia: Code(s): E87.6 - Hypokalemia Status: Acute Assessment and Plan: 04/02/24: * Likely secondary to excessive vomiting and diarrhea * Potassium 3.0 today * Will give 80 mEq of potassium today * Continue cardiac monitoring 04/03/24: * Potassium level today 2.9 * Will give 40 meq of KCL IV * Will add 40KCL to maint. IVF 04/04/24: * Continue to replace as needed (5) CHF (congestive heart failure): Code(s): I50.9 - Heart failure, unspecified Status: Acute Assessment and Plan: 04/02/24: * Reporting SOB for a few months now with associated leg swelling * He was suppose to follow up with Cardiology at [place] however has been too sick to keep appointment. Plan was for echo. * Will obtain echo today * Consider cardiology consult if needed post echo * Currently being treated for DVT in [facility], on eliquis however unable to take the last 5 days due to nausea and vomiting. 04/03/24: * Echo shown normal LV systolic function with an estimated EF of 60-65%, grade 1 diastolic dysfunction 04/04/24: * Will go ahead and restart Eliquis tonight (6) DVT (deep venous thrombosis): Code(s): I82.409 - Acute embolism and thrombosis of unspecified deep veins of unspecified lower extremity Status: Acute Assessment and Plan: 04/02/24: * Currently being treated for DVT in [facility] * Eliquis on hold for EGD * Patient has admitted that he has missed the last 5 days worth of medication due to nausea/vomiting 04/03/24: * Continue to hold Eliquis for EGD today 04/04/24: * Restart Eliquis (7) Weight loss, unintentional: Code(s): R63.4 - Abnormal weight loss Status: Acute Assessment and Plan: 04/02/24: * Patient reports 35 pound weight loss in the past 2 months. * [employer] consulted * GI planning for EGD today * Consider colonoscopy when he can tolerate po * Currently NPO for EGD 04/03/24: * Moderate protein calorie malnutrition * GI following * Currently NPO * Will likely need supplements once taking po * [employer] following
--- NOTE | 2024-04-04 08:03 | PM.IMPN ---
Progress Note: A&P Assessment and Plan (1) Acute gastritis: Code(s): K29.00 - Acute gastritis without bleeding Status: Acute Assessment and Plan: 04/02/24: Abdomen/pelvis CT showed multiple sub 6 mm pulmonary nodules likely benign granulomas, mild esophagitis/gastritis, hepatic steatosis, mild gallbladder hydrops which can be secondary to fasting or obstruction. GI consulted and plans to take patient for EGD today Ultrasound of right upper quadrant ordered Continue nausea and pain control Stool culture and labs obtained Continue NPO status Continue LR at 100 ml per hour Hypoglycemic protocol in place Hold Eliquis, (patient takes for history of DVT) 04/03/24: EGD and colonoscopy today GI following 04/04/24: EGD with essentially normal however they did biopsy the distal and the esophagus Colonoscopy was essentially normal, only shown diverticulosis without perforation, no diverticulitis Plan for nuclear medicine gastric emptying study today Stool cultures were negative H pylori was negative Ova and parasites are still pending GI still following (2) Colitis: Code(s): K52.9 - Noninfective gastroenteritis and colitis, unspecified Status: Acute Assessment and Plan: See above (3) Diarrhea: Code(s): R19.7 - Diarrhea, unspecified Status: Acute Assessment and Plan: See above (4) Hypokalemia: Code(s): E87.6 - Hypokalemia Status: Acute Assessment and Plan: 04/02/24: Likely secondary to excessive vomiting and diarrhea Potassium 3.0 today Will give 80 mEq of potassium today Continue cardiac monitoring 04/03/24: Potassium level today 2.9 Will give 40 meq of KCL IV Will add 40KCL to maint. IVF 04/04/24: Continue to replace as needed (5) CHF (congestive heart failure): Code(s): I50.9 - Heart failure, unspecified Status: Acute Assessment and Plan: 04/02/24: Reporting SOB for a few months now with associated leg swelling He was suppose to follow up with Cardiology at [place] however has been too sick to keep appointment. Plan was for echo. Will obtain echo today Consider cardiology consult if needed post echo Currently being treated for DVT in [place], on eliquis however unable to take the last 5 days due to nausea and vomiting. 04/03/24: Echo shown normal LV systolic function with an estimated EF of 60-65%, grade 1 diastolic dysfunction 04/04/24: Will go ahead and restart Eliquis tonight (6) DVT (deep venous thrombosis): Code(s): I82.409 - Acute embolism and thrombosis of unspecified deep veins of unspecified lower extremity Status: Acute Assessment and Plan: 04/02/24: Currently being treated for DVT in [place] Eliquis on hold for EGD Patient has admitted that he has missed the last 5 days worth of medication due to nausea/vomiting 04/03/24: Continue to hold Eliquis for EGD today 04/04/24: Restart Eliquis (7) Weight loss, unintentional: Code(s): R63.4 - Abnormal weight loss Status: Acute Assessment and Plan: 04/02/24: Patient reports 35 pound weight loss in the past 2 months. [employer] consulted GI planning for EGD today Consider colonoscopy when he can tolerate po Currently NPO for EGD 04/03/24: Moderate protein calorie malnutrition GI following Currently NPO Will likely need supplements once taking po [employer] following 04/04/24: No change to current treatment plan Time Spent With Patient Time with patient: 25 - 35 minutes Subjective Date/time seen: 04/04/24 08:03 Interval history: Interval history: This is a 68-year-old male who presented to the hospital on 04/01/2024 with complaints of nausea, vomiting, diarrhea, abdominal pain. Workup in the hospital includes a chest x-ray which showed chronic elevation of the right hemidiaphragm, no acute cardiopulmonary disease. Abdomen pelvis CT shown multiple sub 6 mm pulmonary nodules lik
[2024-04-04] MEDS: PANTOPRAZOLE 40 MG TABLET PO (08:54)
--- NOTE | 2024-04-04 10:43 | PCNFU ---
Nutrition Follow-Up Complete: Moderate protein calorie malnutrition related to chronic nausea, vomiting, loss of appetite as evidenced by intakes <75% needs >1 month; weight loss 10%/6 months; mild muscle wasting and fat loss goal: Diet advancement PO intake >50% when diet is advanced Patient is progressing towards goal. We will continue current goal. Pt current nutrition is NPO. Last recorded weight is 111.1 kg, no new weight to report. Bowel Motility: Last reported BM 04/03 Labs Reviewed: K 2.9,Na 131, Alb 2.3 Meds Noted: LR, Protonix. Skin: WNL Additional Notes: Patient is NPO for testing. Recommend advancing to a regular diet with Ensure compact BID for additional 220 kcal and 9 gm protein. Intake prior to NPO was fair 20-50% of meals. Agree with diet orders. Monitoring diet orders, intakes, weights, labs, plan of care Follow up in 3 days
[2024-04-04 11:04] LABS: Basophils Absolute Auto 0.1 K/mm3 (0.0-0.1); Basophils Percent Auto 0.6 % (0.2-1.2); Eosinophils Percent Auto 0.3 % (0-4.4); Hematocrit 46.9 % (42.0-52.0); Hemoglobin 15.6 g/dL (14.0-18.0); Immature Granulocyte Absolute 0.23 K/mm3 (0.00-0.031); Immature Granulocyte Percent A 2.3 % (0-0.5); Lymphocytes Absolute Auto 1.52 K/mm3 (0.9-3.2); Lymphocytes Percent Auto 15.5 % (18.3-44.2); Mean Corpuscular HGB Conc 33.3 g/dl (32-36); Mean Corpuscular Hemoglobin 30.1 pg (26-34); Mean Corpuscular Volume 90.5 fl (80-100); Mean Platelet Volume 9.2 fl (7.4-10.4); Monocytes Absolute Auto 1.9 K/mm3 (0.1-0.6); Monocytes Percent Auto 18.9 % (2.6-8.5); Neutrophils Absolute Auto 6.1 K/mm3 (1.3-6.7); Neutrophils Percent Auto 62.4 % (45.5-73.1); Platelet Count Result 323 k/mm3 (150-375); Red Blood Count 5.18 M/mm3 (4.6-6.20); Red Cell Distribution Width 13.1 % (11.5-14.5); White Blood Count 9.8 K/mm3 (4.5-10.0)
[2024-04-04 11:42] LABS: Alanine Aminotransferase 22 U/L (6-50); Albumin Level 2.1 g/dL (3.5-5.1); Alkaline Phosphatase 55 U/L (38-126); Anion Gap 6 mmol/L (4-12); Aspartate Amino Transferase 30 U/L (17-59); Bilirubin,Total 0.3 mg/dL (0.2-1.3); Blood Urea Nitrogen 11 mg/dL (9-20); Calcium 7.8 mg/dL (8.4-10.2); Carbon Dioxide 30 mmol/L (22-30); Chloride 99 mmol/L (98-107); Estimated CRCL calculation 82 ml/min; Estimated Glomerular Filt Rate > 60; Glucose 88 mg/dL (65-110); Potassium 3.6 mmol/L (3.4-5.0); Sodium 135 mmol/L (137-145)
[2024-04-04] MEDS: APIXABAN 5 MG TABLET PO ×2 (12:26→20:22)
[2024-04-04] MEDS: POTASSIUM CHLORIDE 20 MEQ ER TABLET PO (13:49)
--- NOTE | 2024-04-04 15:12 | WPDGIPROGNO ---
Progress Note: A&P Assessment and Plan (1) Gastroparesis: Code(s): K31.84 - Gastroparesis Status: Acute Assessment and Plan: GES today consistent with gastroparesis, this could explain upper gi symptoms egd normal, pending biopsies will start on reglan with meals, also monitor for adverse reaction (2) Nausea & vomiting: Code(s): R11.2 - Nausea with vomiting, unspecified Status: Inactive Assessment and Plan: start reglan zofran prn (3) Weight loss, unintentional: Code(s): R63.4 - Abnormal weight loss Status: Acute (4) Diarrhea: Code(s): R19.7 - Diarrhea, unspecified Status: Acute Assessment and Plan: colonoscopy negative, no colitis he was getting keytruda because melanoma- last dose 01/2024, wonder if could explain his diarrhea imodium prn (5) Melanoma: Code(s): C43.9 - Malignant melanoma of skin, unspecified Status: Acute Subjective Date/time seen: 04/04/24 15:12 Interval history: egd and colonoscopy yesterday no findings still with nausea Review of Systems Review of Systems: All systems reviewed & are unremarkable except as noted in HPI and below Exam Const: General: comfortable HENMT: Face/Nose/Sinus: Normal nares present Eyes: Sclera: sclerae normal Neck: Neck: supple Resp: Effort & Inspection: normal respiratory effort Cardio: Rate: regular rate Rhythm: regular rhythm GI: GI Palp: Yes Soft to palpation and Yes Tenderness to palpation present (GI) (RUQ, epigastric and LUQ with guarding) Auscultation: normal bowel sounds Skin: General skin exam: normal color Neuro: Speech: normal speech Motor exam (neuro): 5/5 motor strength present throughout Extrem: General: normal to inspection Psych: Mental Status: mental status grossly normal Affect: normal affect Objective Data Vital Signs Vital Signs: Vital Signs - 24 hr 04/03/24 16:00 04/03/24 16:00 04/03/24 20:00 Temperature 97.6 F Pulse Rate 75 71 Respiratory Rate 16 Blood Pressure 174/101 H Pulse Oximetry 90 Oxygen Delivery Room Air 04/04/24 00:00 04/03/24 20:00 04/04/24 00:00 Temperature 98.2 F Pulse Rate 78 81 72 Respiratory Rate 18 Blood Pressure 143/77 H Pulse Oximetry 94 Oxygen Delivery 04/04/24 04:00 04/04/24 06:10 04/04/24 08:00 Temperature 97.5 F L Pulse Rate 70 74 76 Respiratory Rate 18 Blood Pressure 125/67 Pulse Oximetry 97 Oxygen Delivery 04/04/24 12:00 04/04/24 09:00 Temperature Pulse Rate 74 Respiratory Rate Blood Pressure Pulse Oximetry Oxygen Delivery Room Air Intake/Output Intake/Output: Intake & Output 04/01/24 04/02/24 04/03/24 04/04/24 23:59 23:59 23:59 23:59 Intake Total 1000 2390 1340 1020 Balance 1000 2390 1340 1020 Meds/Results Medications: Active Medications Generic Name Dose Route Start Last Admin Trade Name Freq PRN Reason Stop Dose Admin Acetaminophen 650 mg 04/02/24 12:06 04/03/24 22:12 Acetaminophen 325 Mg Tablet PO 650 mg Q4H PRN Administration Mild Pain (1-3) or Fever Hydrocodone Bitart/Acetaminophen 1 tab 04/02/24 13:12 Hydrocodone/Acetaminophen (*Crx) 5-325 Mg Tablet PO Q4H PRN Moderate Pain (4-6) Apixaban 5 mg 04/04/24 12:00 04/04/24 12:26 Apixaban 5 Mg Tablet PO 5 mg BID DESTINY Administration Potassium Chloride 40 meq/ 1,020 mls @ 100 mls/hr 04/03/24 15:00 04/04/24 05:17 Lactated Ringer's IV CONT 100 mls/hr .[id number] DESTINY Administration Metoclopramide HCl 5 mg 04/04/24 16:30 Metoclopramide Hcl 5 Mg Tablet PO ACHS DESTINY Morphine Sulfate 2 mg 04/01/24 21:34 Morphine Sulfate (*Crx) 2 Mg/Ml Inj IV PUSH Q2H PRN Pain Rated 7-10 Ondansetron HCl 4 mg 04/01/24 21:33 04/03/24 22:13 Ondansetron Inj 4 Mg/2 Ml Vial IV PUSH 4 mg Q4H PRN Administration Nausea And Vomiting Pantoprazole Sodium 40 mg 04/04/24 09:00 04/04/24 08:54 [place]
[2024-04-04] MEDS: ONDANSETRON INJ 4 MG/2 ML VIAL IV PUSH (16:26)
[2024-04-04] MEDS: METOCLOPRAMIDE HCL 5 MG TABLET PO ×2 (17:56→20:22)
[2024-04-05] VITALS (11 sets, daily range): BP systolic 131–147; BP diastolic 69–84; PULSE 69–96; RESP 18; TEMP 36.3–36.8; O2SAT 94–100
[2024-04-05] MEDS: ONDANSETRON INJ 4 MG/2 ML VIAL IV PUSH (00:40)
[2024-04-05] MEDS: ACETAMINOPHEN 325 MG TABLET 650 MG PO ×2 (00:41→21:49)
[2024-04-05] MEDS: POTASSIUM CHLORIDE INJ 40 MEQ in LACTATED RINGERS 1,000 ML 100 MEQ IV CONT (05:31)
[2024-04-05] MEDS: METOCLOPRAMIDE HCL 5 MG TABLET PO ×2 (05:31→12:05)
[2024-04-05 08:47] LABS: Basophils Absolute Auto 0.1 K/mm3 (0.0-0.1); Basophils Percent Auto 0.6 % (0.2-1.2); Eosinophils Percent Auto 0.3 % (0-4.4); Hemoglobin 16.9 g/dL (14.0-18.0); Immature Granulocyte Absolute 0.26 K/mm3 (0.00-0.031); Immature Granulocyte Percent A 2.2 % (0-0.5); Lymphocytes Absolute Auto 1.76 K/mm3 (0.9-3.2); Mean Corpuscular HGB Conc 33.8 g/dl (32-36); Mean Corpuscular Hemoglobin 30.6 pg (26-34); Mean Corpuscular Volume 90.6 fl (80-100); Mean Platelet Volume 9.2 fl (7.4-10.4); Monocytes Absolute Auto 2.2 K/mm3 (0.1-0.6); Neutrophils Absolute Auto 7.4 K/mm3 (1.3-6.7); Neutrophils Percent Auto 62.9 % (45.5-73.1); Platelet Count Result 334 k/mm3 (150-375); Red Blood Count 5.52 M/mm3 (4.6-6.20); Red Cell Distribution Width 13.2 % (11.5-14.5); White Blood Count 11.7 K/mm3 (4.5-10.0)
[2024-04-05 09:11] LABS: Alanine Aminotransferase 24 U/L (6-50); Albumin Level 2.2 g/dL (3.5-5.1); Alkaline Phosphatase 53 U/L (38-126); Anion Gap 7 mmol/L (4-12); Aspartate Amino Transferase 30 U/L (17-59); Bilirubin,Total 0.3 mg/dL (0.2-1.3); Blood Urea Nitrogen 11 mg/dL (9-20); Calcium 7.3 mg/dL (8.4-10.2); Carbon Dioxide 24 mmol/L (22-30); Chloride 100 mmol/L (98-107); Estimated CRCL calculation 100 ml/min; Estimated Glomerular Filt Rate > 60; Glucose 102 mg/dL (65-110); Potassium 3.6 mmol/L (3.4-5.0); Sodium 131 mmol/L (137-145)
[2024-04-05] MEDS: MULTIVITAMINS THERAPEUTIC TAB (*BKC) 1 TABLET PO (09:12)
[2024-04-05] MEDS: PANTOPRAZOLE 40 MG TABLET PO ×3 (09:12→16:33)
[2024-04-05] MEDS: APIXABAN 5 MG TABLET PO ×2 (09:12→16:32)
[2024-04-05] MEDS: SUCRALFATE SUSP 100 MG/ML 10 ML UDC 1000 MG PO ×3 (09:12→16:32)
--- NOTE | 2024-04-05 09:26 | PM.DS ---
DS: Admitting Diagnosis Discharge Date 04/05/24 DS: Summary Time Spent with Patient Time attestation: Total time spent providing and/or coordinating discharge services: DS: Data Data Completed and Pending Pending studies at discharge: Pending at discharge 04/03/24 14:28 Surgical [PTH] Routine Surgical [PTH] Routine Labs on day of discharge: Labs from last 24 hours 04/05/24 04/04/24 08:26 10:38 WBC 11.7 H 9.8 RBC 5.52 5.18 Hgb 16.9 15.6 Hct 50.0 46.9 MCV 90.6 90.5 MCH 30.6 30.1 MCHC 33.8 33.3 RDW 13.2 13.1 Plt Count 334 323 MPV 9.2 9.2 Immature Gran % (Auto) 2.2 H 2.3 H Neut % (Auto) 62.9 62.4 Lymph % (Auto) 15.0 L 15.5 L [place] % (Auto) 19.0 H 18.9 H Eos % (Auto) 0.3 0.3 Baso % (Auto) 0.6 0.6 Lymph # (Auto) 1.76 1.52 [place] # (Auto) 2.2 H 1.9 H Eos # (Auto) 0.0 0.0 Baso # (Auto) 0.1 0.1 Abs Immat Gran (auto) 0.26 H 0.23 H Absolute Neuts (auto) 7.4 H 6.1 Absolute Nucleated RBC 0.000 0.000 Nucleated RBC % 0.0 0.0 Sodium 131 L 135 L Potassium 3.6 3.6 Chloride 100 99 Carbon Dioxide 24 30 Anion Gap 7 6 BUN 11 11 Creatinine 0.80 1.00 Estim Creat Clear Calc 100 82 Estimated GFR > 60 > 60 Glucose 102 88 Calcium 7.3 L 7.8 L Total Bilirubin 0.3 0.3 AST 30 30 ALT 24 22 Alkaline Phosphatase 53 55 Total Protein 4.0 L 4.0 L Albumin 2.2 L 2.1 L Discharge Plan Discharge Attending physician on discharge: Rhonda Perez Consulting providers: Hui Bass; Jason Bah Discharging Clinician: Hui Bass Anticipated Discharge Date/Time: 04/05/24 09:23 Patient Disposition: Home, Self-Care Activity: as tolerated Diet: as tolerated Discharge Instructions: You were diagnosed with gastroparesis by the GI doctor. He started you on Reglan 5 mg, take this before meals. You will need to follow up with GI in 1 week for the results of your biopsies that were taken during your EGD/colonoscopy Patient Instructions: Metoclopramide (By mouth), Gastroparesis (DC) Patient Language: Yakut Stand Alone Forms: General Discharge Information Follow-up/Referrals: Lyle Lewis DO [Primary Care Provider] - 1 Week Jason Bah MD [Physician] - 1 Week Discharge Medications: New metoclopramide HCl 5 mg Tablet 5 mg PO ACHS Qty: 90 0RF Continued Eliquis 5 mg tablet 5 mg PO BID pantoprazole 40 mg tablet,delayed release (DR/EC) 40 mg PO BID Qty: 60 3RF sucralfate 100 mg/mL suspension 1 g PO TID Qty: 1000 0RF multivitamin Tablet 1 tablet PO DAILY potassium 99 mg Tablet 99 mg PO HS zinc 50 mg Capsule 50 mg PO DAILY diphenoxylate-atropine 2.5-0.025 mg tablet 1 tablet PO QID PRN (Reason: diarrhea) ondansetron 4 mg tablet,disintegrating 4 mg PO Q8H PRN (Reason: nausea and vomiting) Qty: 10 0RF acetaminophen [Tylenol Extra Strength] 500 mg tablet 1,000 mg PO Q6H PRN (Reason: pain) Qty: 50 0RF Discontinued metoclopramide HCl [Reglan] 5 mg tablet 5 mg PO .every 8 hours Qty: 60 0RF Date of admission: 04/02/24 08:02 Primary Care Provider: Lyle Lewis Admitting Provider: Becky Ryan Attending physician on admission: Becky Ryan Condition: Improved
--- NOTE | 2024-04-05 11:31 | P.PNIM_ITS ---
Progress Note: A&P Assessment and Plan (1) Acute gastritis: Code(s): K29.00 - Acute gastritis without bleeding Status: Acute Assessment and Plan: 04/02/24: * Abdomen/pelvis CT showed multiple sub 6 mm pulmonary nodules likely benign granulomas, mild esophagitis/gastritis, hepatic steatosis, mild gallbladder hydrops which can be secondary to fasting or obstruction. * GI consulted and plans to take patient for EGD today * Ultrasound of right upper quadrant ordered * Continue nausea and pain control * Stool culture and labs obtained * Continue NPO status * Continue LR at 100 ml per hour * Hypoglycemic protocol in place * Hold Eliquis, (patient takes for history of DVT) 04/03/24: * EGD and colonoscopy today * GI following 04/04/24: * EGD with essentially normal however they did biopsy the distal and the esophagus * Colonoscopy was essentially normal, only shown diverticulosis without perforation, no diverticulitis * Plan for nuclear medicine gastric emptying study today * Stool cultures were negative * H pylori was negative * Ova and parasites are still pending * GI still following 04/05/24: * GI following * NM gastric emptying study showing gastroparesis * Patient was started on Reglan before meals * Carafate restarted * continue protonix * Pathology is still pending. * Ova and Parasite still pending * Continue Imodium for diarrhea. Diarrhea is associated with his Keytruda. * Continue to monitor electrolytes * DC IV fluids today. * Start potassium 40 meq daily starting tomorrow. (2) Colitis: Code(s): K52.9 - Noninfective gastroenteritis and colitis, unspecified Status: Acute Assessment and Plan: See above (3) Diarrhea: Code(s): R19.7 - Diarrhea, unspecified Status: Acute Assessment and Plan: See above (4) Hypokalemia: Code(s): E87.6 - Hypokalemia Status: Acute Assessment and Plan: 04/02/24: * Likely secondary to excessive vomiting and diarrhea * Potassium 3.0 today * Will give 80 mEq of potassium today * Continue cardiac monitoring 04/03/24: * Potassium level today 2.9 * Will give 40 meq of KCL IV * Will add 40KCL to maint. IVF 04/04/24: * Continue to replace as needed 04/05/24: * IV fluids stopped * Will add 40 mEq of potassium daily considering he still has quite a bit of diarrhea * Potassium today 3.6 (5) CHF (congestive heart failure): Code(s): I50.9 - Heart failure, unspecified Status: Acute Assessment and Plan: 04/02/24: * Reporting SOB for a few months now with associated leg swelling * He was suppose to follow up with Cardiology at [place] however has been too sick to keep appointment. Plan was for echo. * Will obtain echo today * Consider cardiology consult if needed post echo * Currently being treated for DVT in [facility], on eliquis however unable to take the last 5 days due to nausea and vomiting. 04/03/24: * Echo shown normal LV systolic function with an estimated EF of 60-65%, grade 1 diastolic dysfunction 04/04/24: * Will go ahead and restart Eliquis tonight 04/05/24: * No change to current treatment plan (6) DVT (deep venous thrombosis): Code(s): I82.409 - Acute embolism and thrombosis of unspecified deep veins of unspecified lower extremity Status: Acute Assessment and Plan: 04/02/24: * Currently being treated for DVT in [facility] * Eliquis on hold for EGD * Patient has admitted that he has missed the last 5 days worth of medication
--- NOTE | 2024-04-05 11:31 | PM.IMPN ---
Progress Note: A&P Assessment and Plan (1) Acute gastritis: Code(s): K29.00 - Acute gastritis without bleeding Status: Acute Assessment and Plan: 04/02/24: Abdomen/pelvis CT showed multiple sub 6 mm pulmonary nodules likely benign granulomas, mild esophagitis/gastritis, hepatic steatosis, mild gallbladder hydrops which can be secondary to fasting or obstruction. GI consulted and plans to take patient for EGD today Ultrasound of right upper quadrant ordered Continue nausea and pain control Stool culture and labs obtained Continue NPO status Continue LR at 100 ml per hour Hypoglycemic protocol in place Hold Eliquis, (patient takes for history of DVT) 04/03/24: EGD and colonoscopy today GI following 04/04/24: EGD with essentially normal however they did biopsy the distal and the esophagus Colonoscopy was essentially normal, only shown diverticulosis without perforation, no diverticulitis Plan for nuclear medicine gastric emptying study today Stool cultures were negative H pylori was negative Ova and parasites are still pending GI still following 04/05/24: GI following NM gastric emptying study showing gastroparesis Patient was started on Reglan before meals Carafate restarted continue protonix Pathology is still pending. Ova and Parasite still pending Continue Imodium for diarrhea. Diarrhea is associated with his Keytruda. Continue to monitor electrolytes DC IV fluids today. Start potassium 40 meq daily starting tomorrow. (2) Colitis: Code(s): K52.9 - Noninfective gastroenteritis and colitis, unspecified Status: Acute Assessment and Plan: See above (3) Diarrhea: Code(s): R19.7 - Diarrhea, unspecified Status: Acute Assessment and Plan: See above (4) Hypokalemia: Code(s): E87.6 - Hypokalemia Status: Acute Assessment and Plan: 04/02/24: Likely secondary to excessive vomiting and diarrhea Potassium 3.0 today Will give 80 mEq of potassium today Continue cardiac monitoring 04/03/24: Potassium level today 2.9 Will give 40 meq of KCL IV Will add 40KCL to maint. IVF 04/04/24: Continue to replace as needed 04/05/24: IV fluids stopped Will add 40 mEq of potassium daily considering he still has quite a bit of diarrhea Potassium today 3.6 (5) CHF (congestive heart failure): Code(s): I50.9 - Heart failure, unspecified Status: Acute Assessment and Plan: 04/02/24: Reporting SOB for a few months now with associated leg swelling He was suppose to follow up with Cardiology at [place] however has been too sick to keep appointment. Plan was for echo. Will obtain echo today Consider cardiology consult if needed post echo Currently being treated for DVT in [facility], on eliquis however unable to take the last 5 days due to nausea and vomiting. 04/03/24: Echo shown normal LV systolic function with an estimated EF of 60-65%, grade 1 diastolic dysfunction 04/04/24: Will go ahead and restart Eliquis tonight 04/05/24: No change to current treatment plan (6) DVT (deep venous thrombosis): Code(s): I82.409 - Acute embolism and thrombosis of unspecified deep veins of unspecified lower extremity Status: Acute Assessment and Plan: 04/02/24: Currently being treated for DVT in [facility] Eliquis on hold for EGD Patient has admitted that he has missed the last 5 days worth of medication due to nausea/vomiting 04/03/24: Continue to hold Eliquis for EGD today 04/04/24: Restart Eliquis 04/05/24: No change to current treatment plan (7) Weight loss, unintentional: Code(s): R63.4 - Abnormal weight loss Status: Acute Assessment and Plan: 04/02/24: Patient reports 35 pound weight loss in the past 2 months. Payroll Analyst consulted GI planning for EGD today Consider colonoscopy when he can tolerate po Currently NPO for EGD 04/03/24: Moderate protein calorie malnu
--- NOTE | 2024-04-05 13:32 | WPDGIPROGNO ---
Progress Note: A&P Assessment and Plan (1) Gastroparesis: Code(s): K31.84 - Gastroparesis Status: Acute Assessment and Plan: GES consistent with gastroparesis, this could explain upper gi symptoms. There has been case reports of gastroparesis related to immunotherapy (he was on keytruda) egd normal, pending biopsies will increase reglan to 10 mg with meals, no side effect he can follow-up in office in few more weeks (2) Nausea & vomiting: Code(s): R11.2 - Nausea with vomiting, unspecified Status: Inactive Assessment and Plan: started reglan zofran prn (3) Weight loss, unintentional: Code(s): R63.4 - Abnormal weight loss Status: Acute (4) Diarrhea: Code(s): R19.7 - Diarrhea, unspecified Status: Acute Assessment and Plan: colonoscopy negative, no colitis he was getting keytruda because melanoma- last dose 01/2024, wonder if could explain his diarrhea lomotil prn (5) Melanoma: Code(s): C43.9 - Malignant melanoma of skin, unspecified Status: Acute Assessment and Plan: used to be on keytruda Subjective Date/time seen: 04/05/24 13:32 Interval history: still fullness after eating, no changes Review of Systems Review of Systems: All systems reviewed & are unremarkable except as noted in HPI and below Exam Const: General: comfortable HENMT: Face/Nose/Sinus: Normal nares present Eyes: Sclera: sclerae normal Neck: Neck: supple Resp: Effort & Inspection: normal respiratory effort Cardio: Rate: regular rate Rhythm: regular rhythm GI: GI Palp: Yes Soft to palpation and Yes Tenderness to palpation present (GI) (RUQ, epigastric and LUQ with guarding) Auscultation: normal bowel sounds Skin: General skin exam: normal color Neuro: Speech: normal speech Motor exam (neuro): 5/5 motor strength present throughout Extrem: General: normal to inspection Psych: Mental Status: mental status grossly normal Affect: normal affect Objective Data Vital Signs Vital Signs: Vital Signs - 24 hr 04/04/24 14:00 04/04/24 16:00 04/04/24 20:20 Temperature 98.2 F Pulse Rate 94 81 81 Respiratory Rate 16 16 Blood Pressure 136/74 Pulse Oximetry 98 98 Oxygen Delivery Room Air 04/04/24 22:00 04/04/24 20:00 04/05/24 00:04 Temperature 98.3 F Pulse Rate 81 83 81 Respiratory Rate 18 Blood Pressure 142/79 H Pulse Oximetry 94 Oxygen Delivery 04/05/24 04:00 04/05/24 06:00 04/05/24 06:07 Temperature 97.4 F L 97.4 F L Pulse Rate 77 69 69 Respiratory Rate 18 18 Blood Pressure 131/69 131/69 Pulse Oximetry 100 100 Oxygen Delivery 04/05/24 06:23 04/05/24 09:12 Temperature 97.5 F L Pulse Rate 82 Respiratory Rate 18 Blood Pressure 140/84 Pulse Oximetry 96 Oxygen Delivery Room Air Intake/Output Intake/Output: Intake & Output 04/02/24 04/03/24 04/04/24 04/05/24 23:59 23:59 23:59 23:59 Intake Total 2390 1340 3310 1250 Balance 2390 1340 3310 1250 Meds/Results Medications: Active Medications Generic Name Dose Route Start Last Admin Trade Name Freq PRN Reason Stop Dose Admin Acetaminophen 650 mg 04/02/24 12:06 04/05/24 00:41 Acetaminophen 325 Mg Tablet PO 650 mg Q4H PRN Administration Mild Pain (1-3) or Fever Hydrocodone Bitart/Acetaminophen 1 tab 04/02/24 13:12 Hydrocodone/Acetaminophen (*Crx) 5-325 Mg Tablet PO Q4H PRN Moderate Pain (4-6) Apixaban 5 mg 04/04/24 12:00 04/05/24 09:12 Apixaban 5 Mg Tablet PO 5 mg BID DESTINY Administration Potassium Chloride 40 meq/ 1,020 mls @ 100 mls/hr 04/03/24 15:00 04/05/24 05:31 Lactated Ringer's IV CONT 100 mls/hr .[id number] DESTINY Administration Metoclopramide HCl 5 mg 04/04/24 16:30 04/05/24 12:05 Metoclopramide Hcl 5 Mg Tablet PO 5 mg ACHS DESTINY Administration Morphine Sulfate 2 mg 04/01/24 21:34 Morphine Sulfate (*Crx) 2 Mg/Ml Inj IV PUSH Q2H PRN Pain Rated
[2024-04-05] MEDS: METOCLOPRAMIDE HCL 10 MG TABLET PO ×2 (16:32→21:50)
[2024-04-06] VITALS: PULSE 78
[2024-04-06 04:00] VITALS: PULSE 80
[2024-04-06] MEDS: METOCLOPRAMIDE HCL 10 MG TABLET PO (05:57)
[2024-04-06 06:00] VITALS: BP 142/79; PULSE 80; RESP 18; TEMP 36.7; O2SAT 96
--- NOTE | 2024-04-06 07:47 | PM.DS ---
DS: Admitting Diagnosis Discharge Date 04/06/24 Admitting Diagnosis Diarrhea Hypokalemia Colitis Esophagitis Acute gastritis DS: Discharge Diagnosis Discharge Diagnosis (1) Acute gastritis: Code(s): K29.00 - Acute gastritis without bleeding Status: Acute (2) Colitis: Code(s): K52.9 - Noninfective gastroenteritis and colitis, unspecified Status: Acute (3) Diarrhea: Code(s): R19.7 - Diarrhea, unspecified Status: Acute (4) Hypokalemia: Code(s): E87.6 - Hypokalemia Status: Acute (5) CHF (congestive heart failure): Code(s): I50.9 - Heart failure, unspecified Status: Acute (6) DVT (deep venous thrombosis): Code(s): I82.409 - Acute embolism and thrombosis of unspecified deep veins of unspecified lower extremity Status: Acute (7) Weight loss, unintentional: Code(s): R63.4 - Abnormal weight loss Status: Acute DS: Summary Hospital Course Reason for hospitalization: Diarrhea Hypokalemia Colitis Esophagitis Acute gastritis Hospital Course: This is a 68-year-old male who presented to the hospital on 04/01/2024 with complaints of nausea, vomiting, diarrhea, abdominal pain. Workup in the hospital includes a chest x-ray which showed chronic elevation of the right hemidiaphragm, no acute cardiopulmonary disease. Abdomen pelvis CT shown multiple sub 6 mm pulmonary nodules likely benign granulomas, chronic right lower lobe atelectasis, mild esophagitis/gastritis, hepatic steatosis, mild gallbladder hydrops which can be secondary to fasting or obstruction. Initial labs showed a normal white blood cell count of 9.3, sodium 138, potassium 2.9, chloride 98, EGFR 58, C reactive protein 2.2, proBNP 135, lipase normal at 122, TSH 3.49. He was obtained and showed cloudy appearance, 2+ urine protein, 2+ ketone, 2+ urine bili. Stool culture was obtained for H pylori, ova & parasite, E coli, salmon Arielle, Campylobacter antigen assay, Giardia Antigen. Patient was given 1 L of normal saline, 40 mg IV push Protonix, Zofran, and 40 mEq of potassium while in the ED. GI was consulted and took patient to GI lab on 04/03/2024 for an EGD and colonoscopy. EGD was essentially unremarkable however he did take multiple biopsies to rule out celiac sprue. Colonoscopy shown diverticulosis without perforation and biopsies were obtained as well. On 04/04/24 patient had a gastric emptying nuclear med study which showed gastroparesis. Patient was started on Reglan 5 mg with meals however on 04/05/2024 he was still having delayed motility and reported bloating and a feeling of fullness in his stomach. Dr. Stewart increased his Reglan dose to 10 mg before meals which he seemed to tolerate better today. Labs were reviewed and patient is stable for discharge today. He will continue with Reglan 10 mg before meals, Carafate, Protonix and will need to follow up with Dr. Stewart in 1-[address] Stewart feels that his gastroparesis and diarrhea is likely due to Keytruda side effect. Patient continues with potassium due to his diarrhea and will need an outpatient lab in 1 week to check his potassium level. Colitis, esophagitis, and acute gastritis was ruled out with the EGD and colonoscopy. Final diagnosis: Gastroparesis, hypokalemia Status at Discharge Cognitive/behavioral status at discharge: Alert oriented x4 Functional status at discharge: independent ambulation Overall status at discharge: patient is progressing back to baseline Time Spent with Patient Time attestation: Total time spent providing and/or coordinating discharge services: Time spent: Greater than 30 minutes Exam Narrative: General: In no acute distress Cardiac: Normal S1 and S2. RRR. No murmur, gallops or friction rubs, peripheral pulses intact. Respiratory: Lungs clear to auscultation, no adventitious lung sounds, currently on room air Gastrointestinal: soft, non-distended, non-tender, normoactive bowel sound
[2024-04-06 08:00] VITALS: PULSE 87
[2024-04-06 08:36] LABS: Basophils Absolute Auto 0.1 K/mm3 (0.0-0.1); Basophils Percent Auto 0.6 % (0.2-1.2); Eosinophils Percent Auto 0.4 % (0-4.4); Hematocrit 50.1 % (42.0-52.0); Immature Granulocyte Absolute 0.26 K/mm3 (0.00-0.031); Immature Granulocyte Percent A 2.5 % (0-0.5); Lymphocytes Absolute Auto 1.81 K/mm3 (0.9-3.2); Lymphocytes Percent Auto 17.1 % (18.3-44.2); Mean Corpuscular HGB Conc 33.9 g/dl (32-36); Mean Corpuscular Hemoglobin 30.6 pg (26-34); Mean Corpuscular Volume 90.3 fl (80-100); Mean Platelet Volume 9.1 fl (7.4-10.4); Monocytes Absolute Auto 1.6 K/mm3 (0.1-0.6); Monocytes Percent Auto 15.5 % (2.6-8.5); Neutrophils Absolute Auto 6.8 K/mm3 (1.3-6.7); Neutrophils Percent Auto 63.9 % (45.5-73.1); Platelet Count Result 323 k/mm3 (150-375); Red Blood Count 5.55 M/mm3 (4.6-6.20); Red Cell Distribution Width 13.2 % (11.5-14.5); White Blood Count 10.6 K/mm3 (4.5-10.0)
[2024-04-06] MEDS: APIXABAN 5 MG TABLET PO (08:42)
[2024-04-06] MEDS: MULTIVITAMINS THERAPEUTIC TAB (*BKC) 1 TABLET PO (08:43)
[2024-04-06] MEDS: SUCRALFATE SUSP 100 MG/ML 10 ML UDC 1000 MG PO (08:43)
[2024-04-06 08:45] LABS: Alanine Aminotransferase 22 U/L (6-50); Albumin Level 2.1 g/dL (3.5-5.1); Alkaline Phosphatase 50 U/L (38-126); Anion Gap 7 mmol/L (4-12); Aspartate Amino Transferase 27 U/L (17-59); Bilirubin,Total 0.4 mg/dL (0.2-1.3); Blood Urea Nitrogen 10 mg/dL (9-20); Calcium 7.3 mg/dL (8.4-10.2); Carbon Dioxide 23 mmol/L (22-30); Chloride 100 mmol/L (98-107); Estimated CRCL calculation 90 ml/min; Estimated Glomerular Filt Rate > 60; Glucose 100 mg/dL (65-110); Potassium 3.3 mmol/L (3.4-5.0); Sodium 130 mmol/L (137-145)
[2024-04-06] MEDS: PANTOPRAZOLE 40 MG TABLET PO (08:45)
[2024-04-06] MEDS: POTASSIUM CHLORIDE 20 MEQ ER TABLET 40 MEQ PO (08:47)
== END 2024-04-06 10:50 | disposition home or self-care (01) | DRG 392 ==
LOC: ANHED 18:52 → ANH2MED 20:56
PROVIDERS: Internal Medicine Gastroenterology; Admitting Provider General Practice; Emergency Provider Emergency Medicine; PCP Family Medicine; Visit Provider Nurse Practitioner Acute Care
PROC: 0DJ08ZZ Inspection of Upper Intestinal Tract, Via Natural or Artificial Opening Endoscopic (ICD-10-PCS; CPT 43235; principal; 2024-04-03 14:00)
DX: K31.84 Gastroparesis (principal); E44.0 Moderate protein-calorie malnutrition; K52.1 Toxic gastroenteritis and colitis; T50.995A Adverse effect of other drugs, medicaments and biological substances, initial encounter; E87.6 Hypokalemia; I11.0 Hypertensive heart disease with heart failure; I50.9 Heart failure, unspecified; K57.30 Diverticulosis of large intestine without perforation or abscess without bleeding; R63.4 Abnormal weight loss; G47.33 Obstructive sleep apnea (adult) (pediatric); Z79.01 Long term (current) use of anticoagulants; Z85.820 Personal history of malignant melanoma of skin; Z86.718 Personal history of other venous thrombosis and embolism; Z87.19 Personal history of other diseases of the digestive system; Z68.33 Body mass index [BMI] 33.0-33.9, adult
CPT/HCPCS: 36415; 74177; 76705; 78264; 80048; 80053; 81001; 83605; 83690; 83735; 85025; 85610; 85730; 88305; 88342; 93005; 93306; 96374; 96375; 99285; A9270; A9541; G0378; J2405; J2470; J2704; J3480; J7030; J7040; J7120; Q9967

== ENCOUNTER 2024-04-11 12:35 | Outpatient (CLI) | payer MEDICARE, SELFPAY ==
[2024-04-11 14:06] LABS: Anion Gap 9 mmol/L (4-12); Blood Urea Nitrogen 8 mg/dL (7-18); Calcium 7.7 mg/dL (8.5-10.1); Carbon Dioxide 27 mmol/L (21-32); Chloride 106 mmol/L (98-108); Estimated Glomerular Filt Rate > 60; Glucose 105 mg/dL (70-99); Osmolality Calculated 292 mOsm/kg (285-295); Potassium 3.4 mmol/L (3.5-5.1); Sodium 142 mmol/L (136-145)
== END 2024-04-11 12:36 | disposition home or self-care (01) ==
LOC: CHSLAB 12:36
PROVIDERS: PCP Internal Medicine; Visit Provider Internal Medicine Gastroenterology
DX: K31.84 Gastroparesis (principal); E87.6 Hypokalemia
CPT/HCPCS: 36415; 80048

== ENCOUNTER 2024-04-17 10:51 | Outpatient (CLI) | payer MEDICARE, OTHER, SELFPAY ==
[2024-04-17 11:10] VITALS: BP 101/60; PULSE 88; RESP 16; TEMP 36.6; O2SAT 97; BMI 30.2
[2024-04-17] MEDS: SODIUM CHLORIDE 0.9% IV 1,000 ML 999 ML IVPB (11:10)
[2024-04-17 12:04] VITALS: BP 118/69; PULSE 72; RESP 16; TEMP 36.3; O2SAT 96
--- NOTE | 2024-04-17 12:13 | PC.NURSE ---
Patient was sent over from Dr. Lewis office for 1 L Normal saline over 1 hour r/t dehydration. Education given. Voices no concerns. 1 liter of normal saline administered. SEE MAR. Tolerated well. see patient care notes.
== END 2024-04-17 12:15 | disposition home or self-care (01) ==
PROVIDERS: PCP Family Medicine; Visit Provider Family Medicine
DX: E86.0 Dehydration (principal)
CPT/HCPCS: 96360; J7030

== ENCOUNTER 2024-05-12 09:22 | Outpatient (CLI) | payer MEDICARE, SELFPAY ==
[2024-05-21 02:29] LABS: Calprotectin, Stool 2160 mcg/g
== END 2024-05-12 09:23 | disposition home or self-care (01) ==
LOC: CHSLAB 09:25
PROVIDERS: PCP Family Medicine
DX: R19.7 Diarrhea, unspecified (principal); K52.839 Microscopic colitis, unspecified
CPT/HCPCS: 83993

== ENCOUNTER 2024-06-05 09:48 | Outpatient (CLI) | payer MEDICARE, OTHER, SELFPAY ==
[2024-06-05 20:40] LABS: Creatinine Urine 123.1 mg/dL
[2024-06-05 20:50] LABS: Total Protein Urine Random < 5 mg/dL
== END 2024-06-05 09:49 | disposition home or self-care (01) ==
LOC: ANHGOSHLAB 09:50
PROVIDERS: PCP Internal Medicine; Visit Provider Internal Medicine
DX: E88.09 Other disorders of plasma-protein metabolism, not elsewhere classified (principal); E46 Unspecified protein-calorie malnutrition
CPT/HCPCS: 81050; 82570; 84156

== ENCOUNTER 2024-08-19 14:51 | Outpatient (CLI) | payer MEDICARE, OTHER, SELFPAY ==
--- OUTSIDE RECORDS SUMMARY | 2024-08-19 14:56 | XMS_ITS ---
Author Organization [facility] Address [address] [place] [address] Care Team Providers Care Instrumentation Technologist Name Role Phone Lyle Lewis DO Primary Care Provider [phone] Active Problems Problem Noted Date Diagnosed Date Carpal tunnel syndrome of right wrist 12/04/2023 Melanoma of trunk 02/27/2023 HTN (hypertension) 01/26/2023 Spinal stenosis of lumbar re gion without neurogenic claudication 07/13/2021 Current Treatment and Therapy Plans OP ONC_PEMBROLIZUMAB_EVERY 42 DAYS* Plan Start Date:02/27/2023 Plan Provider:Catherine Cuadra MD Linked Problems Melanoma of trunk (CMS/HCC) Treatment Medications pembrolizumab (KEYTRUDA)pemb rolizumab (KEYTRUDA) in sodium chloride 0.9% 100 mL IVPB Past Treatment and Therapy Plans No past plan information found.
--- OUTSIDE RECORDS SUMMARY | 2024-08-19 14:56 | XMS_ITS | Referral Summary ---
Author Organization [facility] Address [address] [place] [address] Care Team Providers Care Work Environment Safety Inspector Name Role Phone Joanne Swanson OB SCRUB TECH-AUDIT TECH Primary Care Provid er Source Comments [facility],non-owned Affiliates and Associated Physician Practices is amultiple site organization consisting of ambulatory clinics and hospital sitesin [place], [place], [place] and [place]. This disclosure is being madepursuant to the Care Everywhere program and may not contain all information available regarding this patient. Last updated 18.[facility] Allergies Active Allergy Reactions Criticality Noted Date Comments Penicillins Urticaria High 04/20/2014 Medications * Be aware that medications may not be up to date on this document. Alwaysverify current medications with the patient. Medication Sig Dispensed Refills Start Date End Date Status levocetirizine (XYZAL) 5 MG tablet Take 5 mg by mouth once daily. Active Aspirin-Acetaminop hen-Caffeine (EXCEDRIN MIGRAINE PO) Active acetaminophen (TYLENOL) 325 MG tablet Take 1 (one) tablet by mouth every 4 hours as needed for Fever or Pain Maximum allowable Acetaminophen amount = 4 Grams (4000 mg) / 24 hours. Active hydrocodone-acetam inophen (NORCO) 5-325 MG tablet Take 1 Tab by mouth every 6 hours as needed for Pain. 30 Tab 0 04/30/2014 Active gabapentin (Neurontin) 300 MG capsule TAKE 1 CAPSULE BY MOUTH EVERY DAY AT BEDTIME 10/16/2023 Active Multiple Vitamins-Minerals (One-A-Day Mens Health Formula) TABS Take 1 (one) tablet by mouth once daily Active predniSONE (Deltasone) 20 MG tablet TAKE 2 TABLETS BY MOUTH ONCE DAILY FOR 5 DAYS 09/20/2023 Active potassium gluconate 595, 99 K, MG PO 595 (99 K) MG tablet Take 99 mg by mouth once daily Active propranolol (Inderal) 80 MG tablet Take 1 (one) tablet by mouth every 12 hours 08/18/2023 Active Zinc Citrate-Phytase (Zytaze) 25-500 MG CAPS Take 50 mg by mouth once daily Active diphenoxylate-atro pine (Lomotil) 2.5-0.025 MG tablet Take 1 (one) tablet by mouth every 6 hours as needed 12/03/2023 Active ketoconazole (Nizoral) 2 % shampoo APPLY TO AFFECTED AREAS ON BODY. LEAVE ON FOR 5 MINUTES BEFORE RINSING. USE IN SHOWER DAILY FOR 7 DAYS, THEN ONCE WEEKLY THEREAFTER. 05/11/2023 Active LYCOPENE PO Take 1 tablet by mouth once daily Active pantoprazole EC (Protonix) 40 MG tablet Take 1 (one) tablet by mouth once daily 12/03/2023 Active POTASSIUM PO Take 99 mg by mouth once daily Active ZINC METHIONATE PO Take 50 mg by mouth once daily Active Pembrolizumab (KEYTRUDA IV) Active oxyCODONE-acetamin ophen (Percocet) 7.5-325 MG tabletIndications: Carpal tunnel syndrome of right wrist Take 1 (one) tablet by mouth every 6 hours as needed for Pain 28 tablet 12/19/2023 Active Additional Information Patient not taking.Reported on 01/01/2024 Apixaban Starter Pack 5 MG TBPK Take 2 tablets (10 mg) by mouth twice daily for 7 days, then take 1 tablet (5 mg) by mouth twice daily for remaining treatment. 01/15/2024 Active Active Problems Problem Noted Date Diagnosed Date Carpal tunnel syndrome of right wrist 12/04/2023 HTN (hypertension) 01/26/2023 Melanoma of back 01/25/2023 Spinal stenosis of lumbar re gion without neurogenic claudication 07/13/2021 Immunizations Name Administration Dates Next Due INFLUENZA VACCINE, TRIV. (AF LURIA, FLUZONE TRIVALENT; 6MO+) (IIV3) 04/30/2014 Social History Tobacco Use Types Packs/Day Years Used Date Smoking Tobacco: Never Smokeless Tobacco: Never Tobacco Cessation:Counseling Given: Not Answered Alcohol Use Standard Drinks/Week Comments Yes 2 (1 standard drink = 0.6 oz pur e alcohol) couple on weekend AUDIT-C Answer Date Recorded Q1: How often do you have a drink containing alc ohol? Never 12/19/2023 Average Number of Drinks Not on file 024 Frequency of Binge Drinking Not on file 11/2023 PHQ-2 Answer Date Recorded Patient Health Questionnaire-2 Score 0 02/05/2024 Sex and Gender Information Value Date Recorded Sex Assigned at Not on file Gender Identity Not on file Sexual Orientation Not on file Last Filed Vital Signs Vital Sign Reading Time Taken Comments Blood Pressure 135/88 12/19/2023 4:31 PM CDT Pulse 50 12/19/2023 10:38 AM CDT Temperature 36.5 ??C (97.7 ??F) 12/19/2023 10:35 AM C DT Respiratory Rate 18 12/19/2023 10:38 AM CDT Oxygen Saturation 96% 12/19/2023 4:32 PM CDT Inhaled Oxygen Concentration - - Weight 116.1 kg (256 lb) 12/19/2023 10:30 AM CDT Height 182.9 cm (6') 12/19/2023 10:30 AM CDT Body Mass Index 34.72 12/19/2023 10:30 AM CDT Functional Status Functional Status Response Date of Assess ment Is person deaf or have serious hearing difficult y? No 12/19/2023 Is person blind or have serious difficulty seein g? No 12/19/2023 Does person have serious dif ficulty walking/climbing stairs? No 12/19/2023 Does person have difficulty dressing/bathing? No 12/19/2023 Does person have difficulty doing errands alone? No 12/19/2023 Cognitive Status Response Date of Assessm ent Does person have difficulty concentrating/remembering/making decisions? No 12/19/2023 Plan of Treatment Not on file Medical Devices Implanted Type Area Art Studio Teacher Device Identifier Shelf Expiration Date Model / Serial / Lot Cespace Bone Hebert Can [id number] Implanted:Qty: 1 on 04/29/2014 by Irvin Barton MD at [facility] Spine Cervical Aesculap Implant 02/26/2016 [id number] / [id number] / Cspace Bone Hebert Can [id number] Paral Implanted:Qty: 1 on 04/29/2014 by Irvin Barton MD at [facility] Spine Cervical Aesculap Implant 10/01/2016 [id number] / [id number] / 4x14 Const Screw Implanted:Qty: 4 on 04/29/2014 by Irvin Barton MD at [facility] Spine Cervical Aesculap Implant [id number] / / 4x14 S.C. Screw Implanted:Qty: 2 on 04/29/2014 by Irvin Barton MD at [facility] Spine Cervical Aesculap Implant [id number] / / 43mm Hybrid Plate Implanted:Qty: 1 on 04/29/2014 by Irvin Barton MD at [facility] Spine Cervical Aesculap Implant [id number] / / Advance Directives * Full Code (Latest Code Status on File) Date Activated Date Inactivated Comments 04/29/2014 7:52 PM 04/30/2014 12:28 PM Care Teams Work Environment Safety Inspector Relationship Specialty Start Date End Date Joanne Swanson, OB SCRUB TECH-AUDIT TECH [address] [place] [address] PCP - General 11/16/22
--- OUTSIDE RECORDS SUMMARY | 2024-08-19 14:56 | XMS_ITS | Clinical Summary ---
Author Organization [facility] Address [address] [place] [id number] Care Team Providers Care Metal Expediter Name Role Phone Unavailable Primary Care Provider Unavailabl e Social History Tobacco Use Types Packs/Day Years Used Date Smoking Tobacco: Never Assessed Sex and Gender Information Value Date Recorded Sex Assigned at Not on file Legal Sex Male 8:47 PM CDT Gender Identity Not on file Sexual Orientation Not on file Plan of Treatment Health Maintenance Due Date Last Done Comments Colorectal Cancer Screening Colonoscopy (10 Years) 1956 Hepatitis C 1974 DTaP, Tdap and Td Vaccines ( 1 - Tdap) 11/14/1975 Zoster Vaccines (1 of 2) 2006 Pneumococcal Vaccine: 65+ Ye ars (1 of 1 - PCV) 2021 COVID-19 Vaccine ( - 2023-2 5 season) 2024 Influenza Adult (#1) 2024 RSV Immunization or 60+ Years (1 - 1-dose 75+ series) 11/14/2031 Meningococcal B Vaccine Aged Out No l onger eligible based on patient's age to complete this topic Meningococcal Vaccine Aged Out No adeola juan eligible based on patient's age to complete this topic RSV Immunizations Under 20 Months Aged Out No longer eligible based on patient's age to complete this topic
--- OUTSIDE RECORDS SUMMARY | 2024-08-19 14:56 | XMS_ITS | Encounter Summary ---
Author Organization [facility] Address [address] [place] [address] Phone Care Team Providers Care Hand Expansion Envelope Maker Name Role Phone Joanne Swanson APRN, DIRECTOR AUTO Primary Care Provi gabriel Encounter Details Date Type Department Care Team (Latest Contact Info) Description 07/06/2021 Transcribe Orders [facility] Preop/Pacu II [address] [place] [address] Jeancarlos East MD [address] [place] [address] Pre-op testing (Primary Dx) Social History Tobacco Use Types Packs/Day Years Used Date Smoking Tobacco: Never Smokeless Tobacco: Never Alcohol Use Standard Drinks/Week Comments Yes 2 (1 standard drink = 0.6 oz pur e alcohol) Sexually Active Control Partners Comments Yes Female Sex and Gender Information Value Date Recorded Sex Assigned at Not on file Legal Sex Male 12:02 AM CDT Gender Identity Not on file Sexual Orientation Not on file documented as of this encounter Plan of Treatment Not on file documented as of this encounter Results * SARS-COV-2 BY MOLECULAR (07/11/2021 10:02 AM CRABBER) SARSCOV2 NOT DETECTED (Referenc e Range for this test is Not Detected) [facility] ID NOW B 07/11/2021 11:12 AM CRABBER [facility] Comment:This test was perfor med by a MOLECULAR, NON-PCR method Other NASOPHARYNGEAL STRUCTURE / Unknown Non-Phlebotomy Collection / Unknown 07/11/2021 10:02 AM CRABBER 07/11/2021 10:41 AM CRABBER Narrative [facility] - 07/11/2021 11:12 AM CRABBER This test has been authorized by the FDA under an Emergency Use Authorization (EUA) only. Negative results should be treated as presumptive and, if inconsistent with clinical signs and symptoms or necessary for patient management, the patient should be tested with an alternative molecular assay. Negative results do not preclude SARS-CoV-2 infection or any other respiratory pathogen. Additional information for Clinicians can be found at: https://www.fda.gov/media/107074/download Additional information for Patients can be found at: https://www.fda.gov/media/752469/download us Jeancarlos East MD MICROBIOLOGY - GENERAL ORDERABLE S Final Result [facility] [place] [address] documented in this encounter Visit Diagnoses Diagnosis Pre-op testing- Primary Preoperative examination, unspecified documented in this encounter Care Teams Hand Expansion Envelope Maker Relationship Specialty Start Date End Date Joanne Swanson, GOLD LEAF LABORER, DIRECTOR AUTO [address] [place] [address] PCP - General Advanced Practice Nurse 07/11/21 documented as of this encounter
--- OUTSIDE RECORDS SUMMARY | 2024-08-19 14:56 | XMS_ITS | Clinical Summary ---
Author Organization [facility] Address [address] [address] Care Team Providers Care Hris Analyst Name Role Phone Lyle Lewis DO Primary Care Provider [phone] Allergies Active Allergy Reactions Criticality Noted Date Comments Penicillins Hives High 12/08/2022 Medications budesonide (ENTOCORT EC) 3 mg Enteric Coated 24 hour capsule Take 3 mg by mouth daily. Active diphenoxylate-at ropine 2.5 mg-0.025 mg tablet Take 1 Tablet by mouth 4 times daily as needed for Diarrhea/Lo ose Stools. Active famotidine (PEPCID) 20 mg tablet Take 20 mg by mouth 2 times daily. Active lipase/protease/ amylase (PANCRELIPASE 16,000 ORAL) Take by mouth. Active apixaban (Eliquis) 5 mg tablet Take by mouth 2 times daily. Active Active Problems Problem Noted Date Diagnosed Date Carpal tunnel syndrome of right wrist 12/04/2023 Melanoma of trunk 02/27/2023 HTN (hypertension) 01/26/2023 Spinal stenosis of lumbar re gion without neurogenic claudication 07/13/2021 Encounters Date Type Department Care Team Description 08/18/2024 8:14 AM FREIGHT FLOW SALES LEADER - 08/18/2024 11:59 PM FREIGHT [employer]OW SALES LEADER Hospital Encounter [facility] Nuclear Medicine [address] [place] [address] [id number] Catherine Cuadra MD Arrived Discharge Disposition: Home or Self Care 08/12/2024 External Device Data STL ABSTRACTION Provider, Abstract 08/12/2024 External Device Data STL ABSTRACTION Provider, Abstract 08/12/2024 External Device Data ST[place] ABSTRACTION Provider, Abstract 08/06/2024 External Device Data STL ABSTRACTION Provider, Abstract 08/06/2024 External Device Data STL ABSTRACTION Provider, Abstract 05/19/2024 External Device Data STL ABSTRACTION Provider, Abstract from Last 3 Months Immunizations Immunization Administration Dates Next Due Influenza Seasonal Unspecified Formulation IM Family History Medical History Relation Name Comments Heart Disease Father Skin Cancer Father Relation Name Status Comments Brother 1 Alive Brother 2 Alive Brother 3 Alive Daughter Alive Father Mother Alive Sister 1 Alive Sister 2 Alive Son Alive Social History Tobacco Use Types Packs/Day Years Used Date Smoking Tobacco: Never Smokeless Tobacco: Never Tobacco Cessation:Counseling Given: Not Answered Alcohol Use Standard Drinks/Week Comments Yes 0 (1 standard drink = 0.6 oz pur e alcohol) osscaional Feeling Safe Answer Date Recorded Are you in a relationship wi th someone who hurts you emotionally and/or physically? No 01/15/2024 Sex and Gender Information Value Date Recorded Sex Assigned at Not on file Legal Sex Male 1:11 PM CDT Gender Identity Not on file Sexual Orientation Not on file Last Filed Vital Signs Vital Sign Reading Time Taken Comments Blood Pressure 130/70 05/07/2024 10:41 AM CDT Pulse 84 05/07/2024 10:41 AM CDT Temperature 35.8 ??C (96.5 ??F) 05/07/2024 1 0:41 AM CDT Respiratory Rate 18 05/07/2024 10:4 1 AM CDT Oxygen Saturation 97% 05/07/2024 10: 41 AM CDT Inhaled Oxygen Concentration - - Weight 100.9 kg (222 lb 6.4 oz) 024 10:41 AM CDT Height 182.9 cm (6') 05/07/2024 10:41 AM CDT Body Mass Index 30.16 05/07/2024 10:41 AM CDT Plan of Treatment Upcoming Encounters Date Type Department Care Team (Late st Contact Info) Description 09/08/2024 9:00 AM F[employer]IGHT FLOW SALES LEADER Appointment [facility] Laboratory Services [facility] [address], [address] [place] [address] Min, Catherine Esquivel MD [address] [place] [address] 09/08/2024 10:00 AM [employer] SALES LEADER Office Visit [facility] Oncology and Hematology [facility] [address] [place] [address] Catherine Cuadra MD [address] [place] [address] Health Maintenance Due Date Last Done Comments Pre-Diabetes and Diabetes Screening 1955 DTAP/TDAP/TD VACCINES (1 - Tdap) 11/14/1975 PNEUMOCOCCAL VACCINE 65+ YEA RS (1 of 2 - PCV) 11/14/1975 ZOSTER VACCINE (1 of 2) 11/14/1975 FIT-DNA Q 3 years 2001 FIT/FOBT Q 1 year 2001 Flex Sig/CT Colonography Q 5 years 2001 INFLUENZA VACCINE (#1) 2024 04/30/2014 RSV VACCINE (60+ or ) (1 - 1-dose 75+ series) 11/14/2031 COLORECTAL SCREENING 06/20/2034 06/20/2024, 06/20/2024, 04/03/2024 Colorectal Cancer Screening 06/20/2034 Procedures Procedure Name Priority Date/Time Associated Diagnosis Comments PET TUMOR OR INFECTION IMG W CT WHOLE BODY Routine 08/18/2024 10:04 AM [employer] SALES LEADER Personal history of DVT (deep vein thrombosis) Melanoma of trunk (CMS/HCC) Chemotherapy induced diarrhea from Last 3 Months Results * PET TUMOR IMG W CT WHOLE BODY (08/18/2024 10:04 AM FREIGHT FLOW SALES LEADER) Anatomical Region Laterality Modality Positron Emissio n Tomography (PET) 08/18/2024 10:0 5 AM F[employer] FL[employer] SALES LEADER Impressions 08/18/2024 10:22 AM F[employer] FLOW SALES LEADER IMPRESSION: ??Probably negative PET exam. Intense FDG uptake involving the tip of the tongue likely represents to the patient tensing his tongue against the incisors rather than malignancy. Dictated by Dr. Henri Shaw MD DICTATION LOCATION: 1 Narrative 08/18/2024 10:22 AM F[employer] FL[employer] SALES LEADER PET/CT IMAGING WITH HARDWARE FUSION Subsequent treatment strategy DATE: 08/18/2024 10:04 AM PRIOR EXAM: PET CT exam 05/06/2024. 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 PROCEDURE: ?? Radiopharmaceutical: 18-F FDG Injected activity: ?? 6.55 mCi Injection site: ?Right hand Uptake time: ? 48 minutes Blood glucose: ? 109 mg/dL. ?? CT scan type: ?Whole-body. CT technique: ?Noncontrast CT for attenuation correction and anatomic localization. Axial, sagittal, coronal and MIP images reviewed. Maximal SUVs have units of MBq/mL. Aortic blood pool: SUVmax: 2.3 Hepatic parenchyma: SUVmax: 3.2 Scan quality: Excellent. FINDINGS: ?? Significant PET/CT findings: ?? No PET avid cutaneous lesions identified to suggest new sites of malignant melanoma. There is intense FDG uptake involving the tip of the tongue with no associated soft tissue mass suggesting this is atypical but physiologic FDG uptake rather than malignancy. There are no sites of adenopathy. No evidence for intracranial, pulmonary, hepatic, splenic, peripancreatic or adrenal sites of malignancy. No PET avid osteolytic or osteoblastic skeletal metastases identified. Incidental PET/CT findings: ?? Expected patterns of PET activity within brain, extraocular muscles, throughout the large intestine and excreted within the urinary tract. Inflammatory FDG uptake involving both shoulder joints, left worse than right. Inflammatory FDG uptake involving the left knee. Minor areas of dependent atelectasis in both lung bases due incomplete lung expansion. Calcified right hilar lymph nodes. No coronary artery calcifications. Cholecystectomy. The liver, spleen, pancreas, adrenal glands and kidneys are normal. Spondylosis centered on L2-L3 disc space. Procedure Note Henri Shaw MD - 08/18/2024 PET/CT IMAGING WITH HARDWARE FUSION Subsequent treatment strategy DATE: 08/18/2024 10:04 AM PRIOR EXAM: PET CT exam 05/06/2024. 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 PROCEDURE: Radiopharmaceutical: 18-F FDG Injected activity: 6.55 mCi Injection site: Right hand Uptake time: 48 minutes Blood glucose: 109 mg/dL. CT scan type: Whole-body. CT technique: Noncontrast CT for attenuation correction and anatomic localization. Axial, sagittal, coronal and MIP images reviewed. Maximal SUVs have units of MBq/mL. Aortic blood pool: SUVmax: 2.3 Hepatic parenchyma: SUVmax: 3.2 Scan quality: Excellent. FINDINGS: Significant PET/CT findings: No PET avid cutaneous lesions identified to suggest new sites of malignant melanoma. There is intense FDG uptake involving the tip of the tongue with no associated soft tissue mass suggesting this is atypical but physiologic FDG uptake rather than malignancy. There are no sites of adenopathy. No evidence for intracranial, pulmonary, hepatic, splenic, peripancreatic or adrenal sites of malignancy. No PET avid osteolytic or osteoblastic skeletal metastases identified. Incidental PET/CT findings: Expected patterns of PET activity within brain, extraocular muscles, throughout the large intestine and excreted within the urinary tract. Inflammatory FDG uptake involving both shoulder joints, left worse than right. Inflammatory FDG uptake involving the left knee. Minor areas of dependent atelectasis in both lung bases due incomplete lung expansion. Calcified right hilar lymph nodes. No coronary artery calcifications. Cholecystectomy. The liver, spleen, pancreas, adrenal glands and kidneys are normal. Spondylosis centered on L2-L3 disc space. IMPRESSION: Probably negative PET exam. Intense FDG uptake involving the tip of the tongue likely represents to the patient tensing his tongue against the incisors rather than malignancy. Dictated by Dr. Henri Shaw MD DICTATION LOCATION: 1 Catherine Cuadra MD PE ORDERABLES Final Result from Last 3 Months Insurance MEDICARE PART A AND B [facility] MEDICARE PART A AND B [facility] Medicare Part D RX [employer] Commercial MEDICARE PART A AND B [facility] Care Teams Hris Analyst Relationship Specialty Start Date End Date Lyle Lewis DO [address] [address] PCP - General Family Practice 12/08/22
--- OUTSIDE RECORDS SUMMARY | 2024-08-19 14:56 | XMS_ITS | Clinical Summary ---
Author Organization [facility] Address [address] [place] [address] Phone Care Team Providers Care Eyewear Manufacturing Supervisor Name Role Phone Joanne Swanson APRN, SCHOOL TRAFFIC GUARD Primary Care Provi gabriel Allergies Active Allergy Reactions Criticality Noted Date Comments Penicillins Hives High 07/06/2021 Medications lisinopril (PRINIVIL, ZESTRIL) 40 MG Tablet Take 40 mg by mouth daily. Active Zinc 50 MG Capsule Take 50 mg by mouth daily. Active Potassium 99 MG Tablet Take 99 mg by mouth daily. Active Multiple Vitamins-Mineral s (One-A-Day Mens Health Formula) Tablet Take 1 Tablet by mouth daily. Active Active Problems Problem Noted Date Diagnosed Date Spinal stenosis of lumbar re gion without neurogenic claudication 07/13/2021 Family History Medical History Relation Name Comments Congestive Heart Failure Father No Known Problems Mother Relation Name Status Comments Father Mother Alive Social History Tobacco Use Types Packs/Day [...] Sign Reading Time Taken Comments Blood Pressure 140/76 07/13/2021 2:10 PM ELECTRICAL JOURNEYMAN Pulse 81 07/13/2021 2:10 PM ELECTRICAL JOURNEYMAN Temperature 36.4 ??C (97.6 ??F) 07/13/2021 2:10 PM CS T Respiratory Rate 16 07/13/2021 2:10 PM ELECTRICAL JOURNEYMAN Oxygen Saturation 93% 07/13/2021 2:10 PM ELECTRICAL JOURNEYMAN Inhaled Oxygen Concentration - - Weight 117.9 kg (260 lb) 07/13/2021 10:29 AM ELECTRICAL JOURNEYMAN Height 182.9 cm (6') 07/13/2021 10:29 AM ELECTRICAL JOURNEYMAN Body Mass Index 35.26 07/13/2021 10:29 AM ELECTRICAL JOURNEYMAN Plan of Treatment Health Maintenance Due Date Last Done Comments Hepatitis C Virus (HCV) Screening 1955 TdaP Immunization 1955 Colonoscopy 2001 Colorectal Cancer Screening 2001 Cologuard 2006 Immunochemical Fecal Occult Blood 2006 Pneumococcal Immunization (5 0+ years) (1 of 1 - PCV) 2006 Zoster Immunization (1 of 2) 2006 PSA Discussion 11/14/2011 Influenza Immunization (#1) 2024 SARS-COV-2 Immunization ( - 2023- season) 2024 Respiratory Syncytial Virus (RSV) Immunization (Adult) (1 - 1-dose 75+ series) 11/14/2031 Hepatitis B Immunization Aged Out No longer eligible based on patient's age to complete this topic Meningococcal Immunization (ACWY) Aged Out No longer eligible based on patient's age to complete this topic Rotavirus Immunization Aged Out No lo nger eligible based on patient's age to complete this topic [place] [id number] [facility] Care Teams Eyewear Manufacturing Supervisor Relationship Specialty Start Date End Date Joanne Swanson, TRUCK TECHNICIAN, SCHOOL TRAFFIC GUARD [address] [place] [address] PCP - General Advanced Practice Nurse 07/11/21
--- OUTSIDE RECORDS SUMMARY | 2024-08-19 14:56 | XMS_ITS | Referral Summary ---
Author Organization [facility] Building 3 Address [address] [place] [address] Care Team Providers Care Pss Delivery Professional Name Role Phone Lyle Lewis DO Unavailable + [phone] Reggie Bowen MD Unavailable [phone] Diane Darnell MD Unavailable + Stephen Cummings MD, Sukumar Wheeler Unavailable + [phone] Katerina Cueto NP Unavailable [phone] Edson Dominguez DO Primary Care Provider + [phone] Encounters Date Type Department Care Team Description 07/17/2024 Telephone [facility] at [facility] [address] [address] Anuradha Rose, RN 07/01/2024 Telephone [facility] at [facility] [address] [address] Anuradha Rose, RN 06/30/2024 11:10 AM CONSULTING PRACTICE DIRECTOR - 06/30/2024 11:59 PM CONSULTING PRACTICE DIRECTOR Hospital Encounter [facility] Services 2 [place] [address] [facility] Hepatic steatosis Discharge Disposition: Discharge to home or self care 06/26/2024 Telephone [facility] at [address] [address] Linda Carlson MD 06/25/2024 Telephone [facility] at [address] [address] Anuradha Rose RN 06/25/2024 3:00 PM CONSULTING PRACTICE DIRECTOR Office Visit [facility] at [address] [address] Katerina Cueto NP Lymphocytic colitis (Primary Dx); Hepatic steatosis; Exocrine pancreatic insufficiency; Dyskinesia of gallbladder; Gastroparesis; Melanoma of back (HCC); History of DVT (deep vein thrombosis); Class 1 obesity due to excess calories with body mass index (BMI) of 30.0 to 30.9 in adult, unspecified whether serious comorbidity present; Gastroesophageal reflux disease, unspecified whether esophagitis present; Colon adenoma 06/20/2024 10:40 AM CONSULTING PRACTICE DIRECTOR - 06/20/2024 11:20 AM CONSULTING PRACTICE DIRECTOR Surgery [facility] [address] [place] [address] Linda Carlson MD COLON BIOPSY 06/20/2024 10:54 AM CONSULTING PRACTICE DIRECTOR Anesthesia Event [facility] [address] [place] [phone] Juan C Barr MD [place], [place], MD 06/20/2024 9:00 AM CONSULTING PRACTICE DIRECTOR - 06/20/2024 11:50 AM CONSULTING PRACTICE DIRECTOR Hospital Encounter [facility] 2 [place] [address] Linda Carlson MD Colitis; Diarrhea, unspecified type; Decreased appetite; Weight loss; Elevated fecal calprotectin Discharge Disposition: Discharge to home or self care 06/02/2024 Orders Only [facility] at [address] [place] [address] Sukumar Mitchell Jr., MD 06/02/2024 Telephone [facility] at [facility] [address] [facility] [address] [place] [phone] Delores Cota RN 05/28/2024 Telephone [facility] at [place] [address] 20 [facility] [address] [place] [address] Katerina Cueto NP 05/28/2024 Orders Only [facility] at [address] [place] [address] Katerina Cueto NP 05/22/2024 Telephone [facility] at [address] [place] [address] Katerina Cueto NP 05/22/2024 Telephone [facility] at [address] [place] [phone] Linda Carlson MD 05/22/2024 Orders Only [facility] at [address] [place] [address] Linda Carlson MD Encounter for screening colonoscopy (Primary Dx) 05/21/2024 Telephone [facility] at [address] [place] [phone] Lily Hardwick CPhT 05/21/2024 Orders Only [facility] at [address] [place] [address] James Fountain MD 05/19/2024 3:00 PM CONSULTING PRACTICE DIRECTOR Office Visit [facility] at [address] [place] [address] Katerina Cueto, DINA Lymphocytic colitis (Primary Dx); Diarrhea, unspecified type; Exocrine pancreatic insufficiency; Dyskinesia of gallbladder; Gastroparesis; Melanoma of back (HCC); History of DVT (deep vein thrombosis); Class 1 obesity due to excess calories with body mass index (BMI) of 30.0 to 30.9 in adult, unspecified whether serious comorbidity present from Last 3 Months Allergies Active Allergy Reactions Criticality Noted Date Comments Penicillins Hives,Urticaria High 04/20/2014 Medications acetaminophen 500 mg capsule Take 1 capsule (500 mg total) by mouth every 6 (six) hours as needed for pain, headaches or fever 4 Active budesonide EC (ENTOCORT EC) 3 mg 24 hr capsuleIndication s:Lymphocytic colitis Take 3 capsules (9 mg total) by mouth daily 90 capsule 1 4 Active Additional Information Patient not taking.Reported on 06/25/2024 pancrelipase (CREON) 12,000 units of lipase capsuleIndication s:exocrine pancreatic insufficiency Take 3 capsules (36,000 units of lipase total) by mouth 3 (three) times a day with meals. May also take 3 capsules (36,000 units of lipase total) as needed for with snacks (daily prn with snack). 360 capsule 11 4 025 Active famotidine (PEPCID) 20 mg tabletIndications :Gastroesophageal reflux disease, unspecified whether esophagitis present Take 1 tablet (20 mg total) by mouth 2 (two) times a day 60 tablet 11 4 025 Active Active Problems Problem Noted Date Diagnosed Date Colon adenoma 06/26/2024 Assessment & Plan (06/26/2024 10:54 AM CONSULTING PRACTICE DIRECTOR): S/p colonoscopy on 06/20/2024 Colon polyp was tubular adenoma x1 Repeat colonoscopy 5 years with history of lymphocytic colitis but current biopsies did not show any evidence of that from the colon Hepatic steatosis 06/25/2024 Assessment & Plan (06/26/2024 11:02 AM CONSULTING PRACTICE DIRECTOR): Severe hepatic steatosis noted on CT 04/18/2024 No elevation in LFTs Recommend healthy dietary and lifestyle modifications Obtain liver elastography Follow up in 1 year Change in bowel habits 06/20/2024 Colitis 05/22/2024 Decreased appetite 05/22/2024 Weight loss 05/22/2024 Elevated fecal calprotectin 05/22/2024 Gastroparesis 05/19/2024 Assessment & Plan (06/24/2024 4:24 PM CONSULTING PRACTICE DIRECTOR): Diagnosed at [facility] although gastric emptying study report is unavailable Recommend small portion, low-fat diet Assessment & Plan (05/19/2024 2:15 PM CONSULTING PRACTICE DIRECTOR): Diagnosed at [facility] although gastric emptying study report is unavailable Recommend small portion, low-fat diet History of DVT (deep vein thrombosis) 05/19/2024 Assessment & Plan (06/24/2024 4:23 PM CONSULTING PRACTICE DIRECTOR): Treated with Eliquis - discontinued by hematology/oncology Assessment & Plan (05/19/2024 2:49 PM CONSULTING PRACTICE DIRECTOR): Treated with Eliquis - discontinued last week by hematology/oncology Dyskinesia of gallbladder 05/19/2024 Assessment & Plan (06/26/2024 11:04 AM CONSULTING PRACTICE DIRECTOR): S/p cholecystectomy with negative intraoperative cholangiogram on 04/24/2024 during hospitalization Seen by surgery service for follow up on 05/06/2024 with clearance to increase his activity as he tolerates. Diet as tolerated. Conitnue Zofran for his nausea. Encouraged protein supplements. Continue to follow up with Surgery Service as needed During hospitalization, cholestyramine was initiated, not tolerated well by patient and medication discontinued. Assessment & Plan (05/19/2024 2:08 PM CONSULTING PRACTICE DIRECTOR): S/p cholecystectomy with negative intraoperative cholangiogram on 04/24/2024 during hospitalization Recently seen by surgery service for follow up on 05/06/2024 with clearance to slowly increase his activity as he tolerates. Diet as tolerated. Sent Zofran for his nausea. Encouraged protein supplements. Continue to follow up with surgery Services as needed Class 1 obesity due to exces s calories with body mass index (BMI) of 30.0 to 30.9 in adult 05/19/2024 Assessment & Plan (06/24/2024 4:24 PM CONSULTING PRACTICE DIRECTOR): Continue healthy dietary and lifestyle modifications Assessment & Plan (05/19/2024 2:05 PM CONSULTING PRACTICE DIRECTOR): Recommend healthy dietary lifestyle modifications Exocrine pancreatic insufficiency 05/19/2024 Assessment & Plan (06/24/2024 4:26 PM CONSULTING PRACTICE DIRECTOR): Stool for pancreatic elastase was low at 44 Continue pancreatic enzyme supplement (Creon) 36,000 units t.i.d. with meals and 1 as needed for snacks Assessment & Plan (05/19/2024 2:16 PM CONSULTING PRACTICE DIRECTOR): Stool for pancreatic elastase was low at 44 Continue pancreatic enzyme supplement (Creon) 36,000 units t.i.d. with meals and 1 as needed for snacks Lower extremity edema 05/05/2024 Lymphocytic colitis 05/05/2024 Assessment & Plan (06/26/2024 11:00 AM CONSULTING PRACTICE DIRECTOR): S/p treatment with Entocort 9mg daily x 8 weeks S/p colonoscopy 06/20/2024 with biopsies from the lining of the colon were all benign for any infection or inflammation Symptoms have resolved, reports 1 or 2 soft stools daily. No melena or hematochezia. May use Imodium as needed for diarrhea Assessment & Plan (05/19/2024 3:16 PM CONSULTING PRACTICE DIRECTOR): Noted on colonoscopy performed 04/03/2024 Treated with Entocort 9 mg daily (treatment is 9 mg daily for 6 to 8 weeks). Initiated on 04/19/2024 If <3 stools daily or no watery stools, can taper to 6 mg for two weeks, then 3 mg for another two weeks, then discontinue. If still having diarrheal episodes, it would be ok to take imodium as needed This occurs when irritating cells come in the lining of the colon that impair the absorption and can contribute to diarrhea. This can be triggered by different conditions including some medications. Specific drugs that can trigger microscopic colitis. Please review this with your PCP and discontinue if possible: High likelihood: -Acarbose, Aspirin and NSAIDS, Clozapine, Entocapone, Flavonoid, Proton pump inhibitors, Sertraline, and Ticlopidine Intermediate likelihood: -Carbamazepine, Celecoxib, Duloxetine, Fluvastatin, Flutamide, Oxetorone, Madopar, Paroxetine, Simvastatin, and Stalevo Low likelihood: -Cimetidine, Gold salts, and Piascledine. Recommend avoiding NSAIDs type medications - Ibuprofen, Motrin, Aleve, Naproxen, Celebrex, Meloxicam. DVT (deep venous thrombosis) ([facility]) Severe protein-calorie malnutrition ([facility]) Diarrhea 04/18/2024 Assessment & Plan (05/19/2024 3:23 PM CONSULTING PRACTICE DIRECTOR): Upon admit, Patient with reported up to 23 watery stools daily. Elevated stool inflammatory marker indicating colitis which may potentially be related to the recent use of Keytruda Repeat fecal calprotectin was ordered, patient states he dropped off stool sample last week at [facility], unable to retrieve results. Patient given stool DX kit in office to mail in his sample for repeat fecal calprotectin, as he lives in [place] Today patient reports BMs have significantly improved, 1-2 soft formed BMs daily with use of Lomotil 1 tablet 3 times daily Discussed with patient and at bedside to decrease Lomotil 1 tab b.i.d. for a week, then decrease to once daily for week then stop and keep us updated on how he was doing Follow up in 1 month for evaluation to titrate off Entocort once he is off Lomotil Carpal tunnel syndrome of right wrist 12/04/2023 HTN (hypertension) 01/26/2023 Melanoma of back 01/25/2023 Assessment & Plan (06/26/2024 11:05 AM CONSULTING PRACTICE DIRECTOR): History of treatment with Keytruda until January 2024- discontinued due to diagnosis of DVT Assessment & Plan (05/19/2024 2:24 PM CONSULTING PRACTICE DIRECTOR): History of treatment with Keytruda until January 2024- discontinued due to diagnosis of DVT Spinal stenosis of lumbar re gion without neurogenic claudication 07/13/2021 Immunizations Name Administration Dates Next Due Influenza, Trivalent, IM (MDV) 04/30/2014 Social History Tobacco Use Types Packs/Day Years Used Date Smoking Tobacco: Never Smokeless Tobacco: Never Tobacco Cessation:Counseling Given: Not Answered Alcohol Use Standard Drinks/Week Comments Not Currently 0 (1 standard drink = 0.6 oz pur e alcohol) [facility] Utilities Answer Date Recorded In the past 12 months has th e electric, gas, oil, or water company threatened to shut off services in your home? No 04/21/2024 Social Connection and Isolat ion Panel [NHANES] Answer Date Recorded In a typical week, how many times do you talk on the phone with family, friends, or neighbors? More than three times a week 04/21/2024 How often do you get togethe r with friends or relatives? More than three times a week 04/21/2024 How often do you attend chur ch or taoism services? Never 04/21/2024 Do you belong to any clubs o r organizations such as jewish groups, unions, fraternal or athletic groups, or school groups? No 04/21/2024 How often do you attend meet ings of the clubs or organizations you belong to? Never 04/21/2024 Are you , , di vorced, , never , or living with a partner? 04/21/2024 AUDIT-C Answer Date Recorded Q1: How often do you have a drink containing alcohol? Never 06/20/2024 Q2: How many drinks containi ng alcohol do you have on a typical day when you are drinking? Patient does not drink Q3: How often do you have si x or more drinks on one occasion? Never 06/20/2024 Overall Financial Resource Strain (CARDIA) Answe r Date Recorded How hard is it for you to pa y for the very basics like food, housing, medical care, and heating? Not hard at all 04/21/2024 Hunger Vital Sign Answer Date Recorded Within the past 12 months, y ou worried that your food would run out before you got the money to buy more. Never true 04/21/20 24 Within the past 12 months, t he food you bought just didn't last and you didn't have money to get more. Never true 04/21/2024 PRAPARE - Transportation Answer Date Re corded In the past 12 months, has l ack of transportation kept you from medical appointments or from getting medications? No 01/2024 In the past 12 months, has l ack of transportation kept you from meetings, work, or from getting things needed for daily living? No 04/21/2024 Housing Stability Vital Sign Answer Lewis e Recorded In the last 12 months, was t here a time when you were not able to pay the mortgage or rent on time? No 04/21/2024 In the past 12 months, how m any times have you moved where you were living? 0 04/21/2024 At any time in the past 12 m [facility], were you homeless or living in a penitentiary (including now)? No 04/21/2024 Personal Safety Answer Date Recorded Have you ever been in or are you currently in a harmful physical or emotional relationship or is someone making you feel afraid or unsafe? Denies 06/20/2024 Sex and Gender Information Value Date Recorded Sex Assigned at Not on file Legal Sex Male 11:52 AM CONSULTING PRACTICE DIRECTOR Gender Identity Not on file Sexual Orientation Not on file Last Filed Vital Signs Vital Sign Reading Time Taken Comments Blood Pressure 132/82 06/25/2024 3:01 PM CONSULTING PRACTICE DIRECTOR Pulse 84 06/20/2024 11:40 AM CONSULTING PRACTICE DIRECTOR Temperature 36.7 ??C (98.1 ??F) 06/20/2024 11:[address] Respiratory Rate 20 06/20/2024 11:40 AM CONSULTING PRACTICE DIRECTOR Oxygen Saturation 96% 06/20/2024 11:40 AM CONSULTING PRACTICE DIRECTOR Inhaled Oxygen Concentration - - Weight 105.2 kg (232 lb) 06/25/2024 3:01 PM CONSULTING PRACTICE DIRECTOR Height 182.9 cm (6') 06/25/2024 3:01 PM CONSULTING PRACTICE DIRECTOR Body Mass Index 31.46 06/25/2024 3:01 PM CONSULTING PRACTICE DIRECTOR Plan of Treatment Not on file Procedures Procedure Name Priority Date/Time Associated Diagnosis Comments US LIVER W ELASTOGRAPHY (C) Schedule Routine, Read Routine (OP Routine) 06/30/2024 12:21 PM CONSULTING PRACTICE DIRECTOR Hepatic steatosis SURGICAL PATHOLOGY Routine 06/20/2024 11 :07 AM CONSULTING PRACTICE DIRECTOR Colitis Diarrhea, unspecified type Decreased appetite Weight loss Elevated fecal calprotectin COLON BIOPSY 06/20/2024 10:55 AM CONSULTING PRACTICE DIRECTOR Colitis Diarrhea, unspecified type Decreased appetite Weight loss Elevated fecal calprotectin COLONOSCOPY 06/20/2024 10:47 AM CONSULTING PRACTICE DIRECTOR from Last 3 Months Results * US Liver W Elastography (C) (06/30/2024 12:21 PM CONSULTING PRACTICE DIRECTOR) Anatomical Region Laterality Modality Abdomen N/A Ultrasound 06/30/2024 1:48 PM CONSULTING PRACTICE DIRECTOR Impressions 06/30/2024 1:48 PM CONSULTING PRACTICE DIRECTOR 1. Mild hepatomegaly. ??Hepato-steatosis. 2. Young's modulus values suggesting liver fibrosis of stage Normal liver ultrasound. Electronically signed by: Valentin Lacey M.D. Narrative 06/30/2024 1:48 PM CONSULTING PRACTICE DIRECTOR EXAMINATIONS: 1. LIVER ULTRASOUND WITH DOPPLER. 2. LIVER SHEAR WAVE ELASTOGRAPHY DATE: 06/30/2024 12:30 PM HISTORY: Fatty liver/steatohepatitis. COMPARISON: ??04/18/2024. TECHNIQUE: Standard protocol was performed including granda scale and color Doppler images with spectral waveform analysis. ?? Shear wave elastography was performed using a [employer] Logiq E9 Unit and a curved 1-6 MHz transducer. The patient was scanned in a supine position with the right arm up via an intercostal approach. The right hemiliver was scanned. FINDINGS: ?? The liver measures 19.9 cm in length and is enlarged. ??Hepatic echogenicity is increased. Portal vein has hepatopedal flow. ??Thoracic gallbladder is surgically absent Common bile duct caliber is 7 mm which is normal for patient's age. Visualized pancreas is normal. Inferior vena cava is patent. Right kidney measures 11.7 x 7.2 x 6.5 cm and is normal. There is no ascites. Elastography: Young's modulus in the liver ranged from 5.79 to 9.24 kPa. Median value was 7.09 kPa. The interquartile range/median value ratio was 21.9%. Metavir score F1. Procedure Note Valentin Lacey MD - 06/30/2024 EXAMINATIONS: 1. LIVER ULTRASOUND WITH DOPPLER. 2. LIVER SHEAR WAVE ELASTOGRAPHY DATE: 06/30/2024 12:30 PM HISTORY: Fatty liver/steatohepatitis. COMPARISON: 04/18/2024. TECHNIQUE: Standard protocol was performed including granda scale and color Doppler images with spectral waveform analysis. Shear wave elastography was performed using a [employer] Logiq E9 Unit and a curved 1-6 MHz transducer. The patient was scanned in a supine position with the right arm up via an intercostal approach. The right hemiliver was scanned. FINDINGS: The liver measures 19.9 cm in length and is enlarged. Hepatic echogenicity is increased. Portal vein has hepatopedal flow. Thoracic gallbladder is surgically absent Common bile duct caliber is 7 mm which is normal for patient's age. Visualized pancreas is normal. Inferior vena cava is patent. Right kidney measures 11.7 x 7.2 x 6.5 cm and is normal. There is no ascites. Elastography: Young's modulus in the liver ranged from 5.79 to 9.24 kPa. Median value was 7.09 kPa. The interquartile range/median value ratio was 21.9%. Metavir score F1. IMPRESSION: 1. Mild hepatomegaly. Hepato-steatosis. 2. Young's modulus values suggesting liver fibrosis of stage Normal liver ultrasound. Electronically signed by: Valentin Lacey M.D. us Katerina Cueto NP IMG US PROCEDURES Final Resul t * Surgical pathology (06/20/2024 11:07 AM CONSULTING PRACTICE DIRECTOR) Tissue (Colon, Biopsy) 06/20/2024 11:07 AM CONSULTING PRACTICE DIRECTOR Tissue (Polyp(s), colon/colorectal, esophageal, gastric) 06/20/2024 11:10 AM CONSULTING PRACTICE DIRECTOR Narrative PATHOLOGY [facility] - 06/23/2024 8:46 AM CONSULTING PRACTICE DIRECTOR [address] ??[address] Tele: ?? Sonia Harry MD - Enterprise Resource Planner Note to Patients: This report may contain a detailed description of human tissue sent by a health care provider to the laboratory for pathologic evaluation. The content of this report is essential for diagnosis and may provide important critical findings. This information may be unfamiliar to patients to review without a medical professional present. It is advised that the patient review this report in the presence of a health care provider who can answer questions and explain the details. SURGICAL PATHOLOGY REPORT Patient Name: ??AUSTIN EDMOND Address: ??[address] [place] [address] , [place], [place] ??[address] Gender: ??M : ??1955 (Age: 68) Service: ??Gastro Location: ??ENDO, ?? Hospital #: ??[id number] Patient Type: ??PW Same Day Surg Accession #: ? [id number] Taken: ? 06/20/2024 Received ? 06/20/2024 Reported: ? 06/23/2024 Physician(s): ? Linda Carlson M.D. Edson Dominguez, DIAGNOSIS: Large intestine, random colon, biopsy: ? - No histopathologic abnormality Large intestine, transverse colon polyp, polypectomy: ? - Tubular adenoma ? - High-grade dysplasia not present [facility]06/23/2024 08:46 Examining Pathologist: Nessa Shearer M.D. Report Reviewed and Electronically Signed By ??Nessa Shearer M.D. SPECIMEN TYPE: A: RANDOM COLON BX B: TRANSVERSE COLON POLYP CLINICAL IMPRESSION AND HISTORY: Change in bowel habits, history of lymphocytic colitis, elevated fecal calprotectin. ??Last colonoscopy with him in the past six months. ??Colonoscopy shows scattered granular mucosa in the entire colon and a polyp in the transverse colon. GROSS DESCRIPTION: The tissue is received in two containers of formalin all labeled with the patient's name AUSTIN EDMOND. A. ??The first container is additionally labeled random colon biopsy and contains multiple tissue fragments measuring 1.5 x 0.3 x 0.1 cm in aggregate. Due to the color and size of the specimen, eosin is used. The specimen is filtered and submitted entirely in cassette A1. B. ??The second container is additionally labeled transverse colon polyp and contains a 0.5 x 0.3 x 0.1 cm tissue fragment. Due to the color and size of the specimen, eosin is used. The specimen is filtered and submitted entirely in cassette B1. ?? [facility] MICROSCOPIC DESCRIPTION: Sections of the random colon biopsy show fragments of colonic mucosa with rare, small lymphoid aggregates. ??The crypt architecture is maintained. ??The lamina propria is normocellular. ??Intraepithelial lymphocytosis is not seen. ??There is no inflammation or subepithelial collagen deposition. Sections of the transverse colon polyp show a tubular adenoma without high-grade dysplasia or malignancy. Clerical Data Follows A; [id number] B; [id number] REPORT IMAGES AND/OR SCANNED DOCUMENTS ONLY VIEWABLE IN PDF FORMAT The immunohistochemical test(s) cited in this report, if any, was developed and its performance characteristics determined by [facility] Pathology Department. ??It has not been cleared or approved by the U.S. Food and Drug Administration. ??The FDA has determined that such clearance or approval is not necessary. ??This test is used for clinical purposes. ??It should not be regarded as investigational or for research. ??[facility] is certified under the Clinical Laboratory Improvement Amendments of 1988 (CLIA) as qualified to perform high complexity testing. ??Immunostains were performed on formalin-fixed paraffin embedded tissue using a polymer diaminobenzidine chromogen detection system. Antibodies used may include clone SP1 (rabbit monoclonal, estrogen receptor), clone 1E2 (rabbit monoclonal progesterone receptor), Ki-67 (rabbit monoclonal, 30-9), CD117 (rabbit polyclonal, c-kit), and anti-Her-2/juan (4B5) (rabbit monoclonal primary antibody). ??In the event that immunohistochemistry or special stains have been performed, attending physician has confirmed appropriateness of controls. ??Frozen section, operating room consultation, gross examination and dissection, and case sign out may have been performed in part or completely in the following laboratories: [facility] [facility], [address] [place] [address], [address] [facility], [place] [address]. Linda Carlson MD LAB PATHOLOGY ORDERABLES Fi nal Result PATHOLOGY [facility] Laboratory Receiving [address] [place] [address] * Colonoscopy (06/20/2024 10:47 AM CONSULTING PRACTICE DIRECTOR) Anatomical Region Laterality Modality Other Narrative Procedure Note Linda Carlson MD - 06/20/2024 10:47 AM CST [facility] GI Lab Report Patient Name: Procedure Date: 06/20/2024 10:47 AM Date of : 1955 Admit Type: Outpatient Age: 68 Gender: Male Note Status: Finalized Attending MD: Linda Carlson M.D. Procedure: Colonoscopy Procedure Date: 06/20/2024 10:47:31 AM Indications: Last colonoscopy within the past 6 months, Changein bowel habits, History of lymphocytic colitis,elevated fecal calprotectin Providers: Linda Carlson M.D. Referring Physician: Edson Dominguez D.O. Medicines: Propofol per Anesthesia Complications: No immediate complications. Procedure: Pre-Anesthesia Assessment: - Prior to the procedure, a History and Physicalwas performed, and patient medications, allergies and sensitivities were reviewed. The patient'stolerance of previous anesthesia was reviewed. - The risks and benefits of the procedure and the sedation options and risks were discussed with the patient. All questions were answered and informed consent was obtained. - ASA Grade Assessment: II - A patient with mild systemic disease. - After reviewing the risks and benefits, thepatient was deemed in satisfactory condition to undergo the procedure. - The heart rate, respiratory rate, oxygen saturations, blood pressure, adequacy of pulmonary ventilation, and response to care were monitored throughout the procedure. - Artificial Intelligence (AI) was used during this examination, using Mobile Authentication. The benefits, risks and alternatives of theprocedure and sedation were discussed and informed consentwas obtained. All questions were answered. Please referto the signed informed consent document in the medical record. The scope was passed under direct vision.The Colonoscope was introduced through the anus and advanced to the the terminal ileum. The colonoscopy was performed without difficulty. The patient tolerated the procedure well. The quality of thebowel preparation was adequate. The quality of the bowel preparation was evaluated using the BBPS (BostonBowel Preparation Scale) with scores of: Right Colon = 2 (minor amount of residual staining, small fragmentsof stool and/or opaque liquid, but mucosa seen well), Transverse Colon = 2 (minor amount of residual staining, small fragments of stool and/or opaque liquid, but mucosa seen well) and Left Colon = 3 (entire mucosa seen well with no residual staining, small fragments of stool or opaque liquid). Thetotal BBPS score equals 7. The quality of the bowel preparation was good. The terminal ileum, ileocecal valve, appendiceal orifice, and rectum were photographed. The bowel preparation used wasGoLYTELY via split dose instruction. Findings: The terminal ileum appeared normal. Multiple small and large-mouthed diverticula were found in thesigmoid colon. A scattered area of granular mucosa was found in the entire colon. Biopsies for histology were taken with a cold forceps for evaluationof microscopic colitis. A 2 mm polyp was found in the transverse colon. The polyp wassessile. The polyp was removed with a cold biopsy forceps. Resection and retrieval were complete. No active inflammation or colitis was evident Non-bleeding internal hemorrhoids were found during retroflexion. The hemorrhoids were moderate. Estimated Blood Loss: Estimated blood loss: none. Impression: - The examined portion of the ileum was normal. - Diverticulosis in the sigmoid colon. - Granularity in the entire examined colon.Biopsied. - One 2 mm polyp in the transverse colon, removedwith a cold biopsy forceps. Resected and retrieved. - Non-bleeding internal hemorrhoids. Recommendation: - Repeat colonoscopy for surveillance based on pathology results. As far as the use of Entocort/budesonide is concerned--can hold it and see how you do as far as diarrhea is concerned if it recurs then we may haveto resume it again Procedure Code(s): --- Professional --- 56056, Colonoscopy, flexible; with biopsy, singleor multiple CPT copyright 2020 [employer]. All rights reserved. Electronically signed by Dr Linda Carlson Linda Carlson M.D. 06/20/2024 11:22:37 AM This report has been signed electronically. Number of Addenda: 0 Note Initiated On: 06/20/2024 10:47 AM Linda Carlson MD ENDOSCOPY PROCEDURES Final Result from Last 3 [place] [address] MEDICARE [facility] Advance Directives For more information, please contact: [phone] * Full Code (Latest Code Status on File) Date Activated Date Inactivated Comments 06/20/2024 10:13 AM 06/20/2024 4:49 PM * Full Code Date Activated Date Inactivated Comments 04/18/2024 4:47 PM 04/25/2024 4:11 PM * Full Code Date Activated Date Inactivated Comments 04/18/2024 2:26 PM 04/18/2024 4:47 PM Care Teams Pss Delivery Professional Relationship Specialty Start Date End Date Edson Dominguez DO [address] [facility] [place] [address] PCP - General Internal Medicine 06/10/24 Lyle Lewis DO [address] [place] [address] Family Medicine 04/15/24 Reggie Bowen MD [address] [place] [address] Referring Physician Plastic Surgery 01/08/23 Diane Darnell MD [address] [facility] [place] [address] Pathology 01/25/23 Sukumar Mitchell Jr., MD [address] [facility] [address] [place] [address] General Surgery 04/25/24 Katerina Cueto NP [address] [facility] [address] [place] [address] Nurse Practitioner Gastroenterology 04/25/24
--- OUTSIDE RECORDS SUMMARY | 2024-08-19 14:56 | XMS_ITS | Clinical Summary ---
Author Organization [facility] 3 Address [address] [place] [address] Care Team Providers Care Legal Job Titles Name Role Phone Lyle Lewis DO Unavailable + [phone] Reggie Bowen MD Unavailable [phone] Diane Darnell MD Unavailable + Stephen Cummings MD, Sukumar Wheeler Unavailable +- [phone] Katerina Cueto NP Unavailable [phone] Edson Dominguez DO Primary Care Provider [phone] Allergies Active Allergy Reactions Criticality Noted Date [...] 06/26/2024 Assessment & Plan (06/26/2024 10:54 AM SUPPLY CHAIN SYSTEMS MANAGER): S/p colonoscopy on 06/20/2024 Colon polyp was tubular adenoma x1 Repeat colonoscopy 5 years with history of lymphocytic colitis but current biopsies did not show any evidence of that from the colon Hepatic steatosis 06/25/2024 Assessment & Plan (06/26/2024 11:02 AM SUPPLY CHAIN SYSTEMS MANAGER): Severe hepatic steatosis noted on CT 04/18/2024 No elevation in LFTs Recommend healthy dietary and lifestyle modifications Obtain liver elastography Follow up in 1 year Change in bowel habits 06/20/2024 Colitis 05/22/2024 Decreased appetite 05/22/2024 Weight loss 05/22/2024 Elevated fecal calprotectin 05/22/2024 Gastroparesis 05/19/2024 Assessment & Plan (06/24/2024 4:24 PM SUPPLY CHAIN SYSTEMS MANAGER): Diagnosed at [facility] although gastric emptying study report is unavailable Recommend small portion, low-fat diet Assessment & Plan (05/19/2024 2:15 PM SUPPLY CHAIN SYSTEMS MANAGER): Diagnosed at [facility] although gastric emptying study report is unavailable Recommend small portion, low-fat diet History of DVT (deep vein thrombosis) 05/19/2024 Assessment & Plan (06/24/2024 4:23 PM SUPPLY CHAIN SYSTEMS MANAGER): Treated with Eliquis - discontinued by hematology/oncology Assessment & Plan (05/19/2024 2:49 PM SUPPLY CHAIN SYSTEMS MANAGER): Treated with Eliquis - discontinued last week by hematology/oncology Dyskinesia of gallbladder 05/19/2024 Assessment & Plan (06/26/2024 11:04 AM SUPPLY CHAIN SYSTEMS MANAGER): S/p cholecystectomy with negative intraoperative cholangiogram on [...] discontinued. Assessment & Plan (05/19/2024 2:08 PM SUPPLY CHAIN SYSTEMS MANAGER): S/p cholecystectomy with negative intraoperative cholangiogram on [...] 05/19/2024 Assessment & Plan (06/24/2024 4:24 PM SUPPLY CHAIN SYSTEMS MANAGER): Continue healthy dietary and lifestyle modifications Assessment & Plan (05/19/2024 2:05 PM SUPPLY CHAIN SYSTEMS MANAGER): Recommend healthy dietary lifestyle modifications Exocrine pancreatic insufficiency 05/19/2024 Assessment & Plan (06/24/2024 4:26 PM SUPPLY CHAIN SYSTEMS MANAGER): Stool for pancreatic elastase was low at 44 Continue pancreatic enzyme supplement (Creon) 36,000 units t.i.d. with meals and 1 as needed for snacks Assessment & Plan (05/19/2024 2:16 PM SUPPLY CHAIN SYSTEMS MANAGER): Stool for pancreatic elastase was low at 44 Continue pancreatic enzyme supplement (Creon) 36,000 units t.i.d. with meals and 1 as needed for snacks Lower extremity edema 05/05/2024 Lymphocytic colitis 05/05/2024 Assessment & Plan (06/26/2024 11:00 AM SUPPLY CHAIN SYSTEMS MANAGER): S/p treatment with Entocort 9mg daily x 8 weeks S/p colonoscopy 06/20/2024 with biopsies from the lining of the colon were all benign for any infection or inflammation Symptoms have resolved, reports 1 or 2 soft stools daily. No melena or hematochezia. May use Imodium as needed for diarrhea Assessment & Plan (05/19/2024 3:16 PM SUPPLY CHAIN SYSTEMS MANAGER): Noted on colonoscopy performed 04/03/2024 Treated with [...] Naproxen, Celebrex, Meloxicam. DVT (deep venous thrombosis) ([facility]) Severe protein-calorie malnutrition ([facility]) Diarrhea 04/18/2024 Assessment & Plan (05/19/2024 3:23 PM SUPPLY CHAIN SYSTEMS MANAGER): Upon admit, Patient with reported up to 23 watery stools daily. Elevated stool inflammatory marker indicating colitis which may potentially be related to the recent use of Keytruda Repeat fecal calprotectin was ordered, patient states he dropped off stool sample last week at [facility], unable to retrieve results. Patient given stool DX kit in office to mail in his sample for repeat fecal calprotectin, as he lives in [place] Today patient reports BMs have significantly improved, [...] 01/25/2023 Assessment & Plan (06/26/2024 11:05 AM SUPPLY CHAIN SYSTEMS MANAGER): History of treatment with Keytruda until January 2024- discontinued due to diagnosis of DVT Assessment & Plan (05/19/2024 2:24 PM SUPPLY CHAIN SYSTEMS MANAGER): History of treatment with Keytruda until January 2024- discontinued due to diagnosis of DVT Spinal stenosis of lumbar re gion without neurogenic claudication 07/13/2021 Encounters Date Type Department Care Team Description 07/17/2024 Telephone [facility] [address] [address] Anuradha Rose, RN 07/01/2024 Telephone [facility] [address] [address] Anuradha Rose, RN 06/30/2024 11:10 AM SUPPLY CHAIN SYSTEMS MANAGER - 06/30/2024 11:59 PM SUPPLY CHAIN SYSTEMS MANAGER Hospital Encounter [facility] [address] [place] [address] Miriam [facility] Hepatic steatosis Discharge Disposition: Discharge to home or self care 06/26/2024 Telephone [facility] [address] [address] Linda Carlson MD 06/25/2024 3:00 PM SUPPLY CHAIN SYSTEMS MANAGER Office Visit [facility] [place] [address] [address] [facility] [address] [place] [phone] Katerina Cueto NP Lymphocytic colitis (Primary Dx); Hepatic steatosis; Exocrine pancreatic insufficiency; Dyskinesia of gallbladder; Gastroparesis; Melanoma of back (HCC); History of DVT (deep vein thrombosis); Class 1 obesity due to excess calories with body mass index (BMI) of 30.0 to 30.9 in adult, unspecified whether serious comorbidity present; Gastroesophageal reflux disease, unspecified whether esophagitis present; Colon adenoma 06/25/2024 Telephone [facility] [place] [address] [address] [facility] 206 [place] [address] Anuradha Rose, RICHA 06/20/2024 10:54 AM SUPPLY CHAIN SYSTEMS MANAGER Anesthesia Event [facility] [address] [place] [phone] Juan C Barr MD [place], [place], MD 06/20/2024 10:40 AM SUPPLY CHAIN SYSTEMS MANAGER - 06/20/2024 11:20 AM SUPPLY CHAIN SYSTEMS MANAGER Surgery [facility] [address] [place] [address] Linda Carlson MD COLON BIOPSY 06/20/2024 9:00 AM SUPPLY CHAIN SYSTEMS MANAGER - 06/20/2024 11:50 AM SUPPLY CHAIN SYSTEMS MANAGER Hospital Encounter [facility] 2 [place] [address] Linda Carlson MD Colitis; Diarrhea, unspecified type; Decreased appetite; Weight loss; Elevated fecal calprotectin Discharge Disposition: Discharge to home or self care 06/02/2024 Orders Only [facility] [address] [place] [address] Sukumar Mitchell Jr., MD 06/02/2024 Telephone [facility] [address] [facility] [address] [place] [address] Delores Cota RN 05/28/2024 Telephone [facility] [place] [address] [address] [facility] [address] [place] [address] Katerina Cueto NP 05/28/2024 Orders Only [facility] [place] [address] [address] [facility] [address] [place] [address] Katerina Cueto NP 05/22/2024 Telephone [facility] [address] [place] [address] Katerina Cueto NP 05/22/2024 Telephone [facility] [address] [place] [address] Linda Carlson MD 05/22/2024 Orders Only [facility] [place] [address] [address] [facility] [address] [place] [address] Linda Carlson MD Encounter for screening colonoscopy (Primary Dx) 05/21/2024 Telephone [facility] [place] [address] [address] [facility] [address] [place] [address] Lily Hardwick CPhT 05/21/2024 Orders Only [facility] [address] [place] [address] James Fountain MD 05/19/2024 3:00 PM SUPPLY CHAIN SYSTEMS MANAGER Office Visit [facility] [address] [place] [address] Katerina Cueto, DINA Lymphocytic colitis (Primary Dx); Diarrhea, unspecified type; Exocrine pancreatic insufficiency; Dyskinesia of gallbladder; Gastroparesis; Melanoma of back (HCC); History of DVT (deep vein thrombosis); Class 1 obesity due to excess calories with body mass index (BMI) of 30.0 to 30.9 in adult, unspecified whether serious comorbidity present from Last 3 Months Immunizations Name Administration Dates Next Due Influenza, Trivalent, IM (V) 04/30/2014 Surgical History Surgery Date Site/Laterality Comments CERVICAL SPINE SURGERY 07/16/2014 - 07/15/2015 plates and screws ANTERIOR CRUCIATE LIGAMENT REPAIR 07/16/1993 - 07/15/1994 FOOT SURGERY 07/16/2011 - 07/15/2012 HERNIA REPAIR 07/16/2009 - 07/15/2010 MELANOMA RESECTION 07/16/2022 - 07/15/2023 Back, with sentinel lymph node biospy of the left axilla CARPAL TUNNEL RELEASE Right CHOLECYSTECTOMY 04/24/2024 Laparoscopic cholecystectomy with intraoperative cholangiogram By Dr Stephen Nolen Medical History Medical History Date Comments Melanoma of back (HCC) 01/25/2023 HTN (hypertension) Family History Medical History Relation Name Comments Heart disease Brother Heart disease Father Colon cancer Neg Hx Esophageal cancer Neg Hx Rectal cancer Neg Hx Stomach cancer Neg Hx Relation Name Status Comments Brother Alive Father Social History Tobacco Use Types Packs/Day Years Used Date Smoking Tobacco: Never Smokeless Tobacco: Never Tobacco Cessation:Counseling Given: Not Answered Alcohol Use Standard Drinks/Week Comments Not Currently 0 (1 standard drink = 0.6 oz pur e alcohol) [employer] Answer Date Recorded In the past 12 months has [employer], gas, oil, or water [employer] threatened to shut off services in your [...] 04/21/2024 How often do you attend chur or yarsanism services? Never 04/21/2024 Do you belong to any clubs o r organizations such as spiritism groups, unions, fraternal or athletic groups, or [...] any time in the past 12 m [facility], were you homeless or living in a retirement (including now)? No 04/21/2024 Personal Safety Answer Date Recorded Have you ever been in or are you currently in a harmful physical or emotional relationship or is someone making you feel afraid or unsafe? Denies 06/20/2024 Sex and Gender Information Value Date Recorded Sex Assigned at Not on file Legal Sex Male 11:52 AM SUPPLY CHAIN SYSTEMS MANAGER Gender Identity Not on file Sexual Orientation Not on file Obstetrics History Last Filed Vital Signs Vital Sign Reading Time Taken Comments Blood Pressure 132/82 06/25/2024 3:01 PM SUPPLY CHAIN SYSTEMS MANAGER Pulse 84 06/20/2024 11:40 AM SUPPLY CHAIN SYSTEMS MANAGER Temperature 36.7 ??C (98.1 ??F) 06/20/2024 11:[address] Respiratory Rate 20 06/20/2024 11:40 AM SUPPLY CHAIN SYSTEMS MANAGER Oxygen Saturation 96% 06/20/2024 11:40 AM SUPPLY CHAIN SYSTEMS MANAGER Inhaled Oxygen Concentration - - Weight 105.2 kg (232 lb) 06/25/2024 3:01 PM SUPPLY CHAIN SYSTEMS MANAGER Height 182.9 cm (6') 06/25/2024 3:01 PM SUPPLY CHAIN SYSTEMS MANAGER Body Mass Index 31.46 06/25/2024 3:01 PM SUPPLY CHAIN SYSTEMS MANAGER Plan of Treatment Health Maintenance Due Date Last Done Comments Depression Screening 1955 Hepatitis C Screening 1955 Prostate Cancer Screening-PSA 1955 DTaP/Tdap/Td Vaccine (1 - Tdap) 11/14/1967 Hepatitis B Screening 1974 Zoster Vaccine (1 of 2) 2006 Pneumococcal vaccine 65+ (1 of 1 - PCV) 2021 Well Visit 65+ 2021 Influenza Vaccine (#1) 2024 04/30/2014 Fall Risk Assessment 06/20/2025 06/20/2024 Colon Cancer Screening-Colonoscopy 06/20/20342023 Procedures Procedure Name Priority Date/Time Associated Diagnosis Comments US LIVER W ELASTOGRAPHY (C) Schedule Routine, Read Routine (OP Routine) 06/30/2024 12:21 PM SUPPLY CHAIN SYSTEMS MANAGER Hepatic steatosis SURGICAL PATHOLOGY Routine 06/20/2024 11 :07 AM SUPPLY CHAIN SYSTEMS MANAGER Colitis Diarrhea, unspecified type Decreased appetite Weight loss Elevated fecal calprotectin COLON BIOPSY 06/20/2024 10:55 AM SUPPLY CHAIN SYSTEMS MANAGER Colitis Diarrhea, unspecified type Decreased appetite Weight loss Elevated fecal calprotectin COLONOSCOPY 06/20/2024 10:47 AM SUPPLY CHAIN SYSTEMS MANAGER from Last 3 Months Results * US Liver W Elastography (C) (06/30/2024 12:21 PM SUPPLY CHAIN SYSTEMS MANAGER) Anatomical Region Laterality Modality Abdomen N/A Ultrasound 06/30/2024 1:48 PM SUPPLY CHAIN SYSTEMS MANAGER Impressions 06/30/2024 1:48 PM SUPPLY CHAIN SYSTEMS MANAGER 1. Mild hepatomegaly. ??Hepato-steatosis. 2. Young's modulus values suggesting liver fibrosis of stage Normal liver ultrasound. Electronically signed by: Valentin Lacey M.D. Narrative 06/30/2024 1:48 PM SUPPLY CHAIN SYSTEMS MANAGER EXAMINATIONS: 1. LIVER ULTRASOUND WITH DOPPLER. 2. LIVER SHEAR WAVE ELASTOGRAPHY DATE: 06/30/2024 12:30 PM HISTORY: Fatty liver/steatohepatitis. COMPARISON: ??04/18/2024. TECHNIQUE: Standard protocol was performed including granda scale and color Doppler images with spectral waveform analysis. ?? Shear wave elastography was performed using a [employer] Logiq E9 Unit and a curved 1-6 [...] Shear wave elastography was performed using a [employer] Logiq E9 Unit and a curved 1-6 [...] t * Surgical pathology (06/20/2024 11:07 AM SUPPLY CHAIN SYSTEMS MANAGER) Tissue (Colon, Biopsy) 06/20/2024 11:07 AM SUPPLY CHAIN SYSTEMS MANAGER Tissue (Polyp(s), colon/colorectal, esophageal, gastric) 06/20/2024 11:10 AM SUPPLY CHAIN SYSTEMS MANAGER Narrative PATHOLOGY [facility] - 06/23/2024 8:46 AM SUPPLY CHAIN SYSTEMS MANAGER [address] ??[address] Tele: ?? Sonia Harry MD - Form Building Supervisor Note to Patients: This report may contain [...] PATHOLOGY REPORT Patient Name: ??AUSTIN EDMOND Address: ??[address] [place] [address] [place], [place] ??[address] Gender: ??M : ??1955 (Age: 68) Service: ??Gastro Location: ??ENDO, ?? Hospital #: ??[id number] Patient Type: ??PW Same Day Surg Accession #: ? [id number] Taken: ? 06/20/2024 Received ? 06/20/2024 Reported: ? 06/23/2024 Physician(s): ? Miah BradleyD. Edson Dominguez, DIAGNOSIS: Large intestine, random colon, biopsy: ? - No histopathologic abnormality Large intestine, transverse colon polyp, polypectomy: ? - Tubular adenoma ? - High-grade dysplasia not present [facility] no.106/23/2024 08:46 Examining Pathologist: Nessa Shearer M.D. Report [...] submitted entirely in cassette B1. ?? [facility] MICROSCOPIC DESCRIPTION: Sections of the random colon biopsy show fragments of colonic mucosa with rare, small lymphoid aggregates. ??The crypt architecture is maintained. ??The lamina propria is normocellular. ??Intraepithelial lymphocytosis is not seen. ??There is no inflammation or subepithelial collagen deposition. Sections of the transverse colon polyp show a tubular adenoma without high-grade dysplasia or malignancy. Clerical Data Follows A; [id number] B; [id number] REPORT IMAGES AND/OR SCANNED DOCUMENTS ONLY VIEWABLE IN PDF FORMAT The immunohistochemical test(s) cited in this report, if any, was developed and its performance characteristics determined by [facility] Pathology Department. ??It has not been cleared or approved by the U.S. Food and Drug Administration. ??The FDA has determined that such clearance or approval is not necessary. ??This test is used for clinical purposes. ??It should not be regarded as investigational or for research. ??[facility] Laboratory is certified under the Clinical Laboratory [...] part or completely in the following laboratories: [facility], [address] [place] [address], [address] [place] [address]. Linda Cralson MD LAB PATHOLOGY ORDERABLES Fi nal Result PATHOLOGY [facility] Laboratory Receiving [address] [place] [address] * Colonoscopy (06/20/2024 10:47 AM SUPPLY CHAIN SYSTEMS MANAGER) Anatomical Region Laterality Modality Other Narrative Procedure Note Linda Carlson MD - 06/20/2024 10:47 AM CST [facility] GI Lab Report Patient Name: Procedure Date: [...] (AI) was used during this examination, using [employer]. The benefits, risks and alternatives of theprocedure [...] it again Procedure Code(s): --- Professional --- 72347, Colonoscopy, flexible; with biopsy, singleor multiple CPT copyright 2020 [employer]. All rights reserved. Electronically signed by Dr Linda Carlson Linda Carlson M.D. 06/20/2024 11:22:37 AM This report has been signed electronically. Number of Addenda: 0 Note Initiated On: 06/20/2024 10:47 AM Linda Carlson MD ENDOSCOPY PROCEDURES Final Result from Last 3 Months Insurance MEDICARE [employer] [place] [employer] [employer] [place] [address] Advance Directives For more information, please contact: [phone] * Full Code (Latest Code Status on File) Date Activated Date Inactivated Comments 06/20/2024 10:13 AM 06/20/2024 4:49 PM * Full Code Date Activated Date Inactivated Comments 04/18/2024 4:47 PM 04/25/2024 4:11 PM * Full Code Date Activated Date Inactivated Comments 04/18/2024 2:26 PM 04/18/2024 4:47 PM Care Teams Legal Job Titles Relationship Specialty Start Date End Date Edson Dominguez DO [facility] [facility] [address] [place] [address] PCP - General Internal Medicine 06/10/24 Lyle Lewis DO [address] [place] [address] Family Medicine 04/15/24 Reggie Bowen MD [address] [facility] [address] [place] [address] Referring Physician Plastic Surgery 01/08/23 Diane Darnell MD [address] [place] [address] Pathology 01/25/23 Sukumar Mitchell Jr., MD [address] [facility] [address] [place] [address] General Surgery 04/25/24 Katerina Cueto NP [address] [facility] [address] [place] [address] Nurse Practitioner Gastroenterology 04/25/24
--- OUTSIDE RECORDS SUMMARY | 2024-08-19 14:56 | XMS_ITS | Patient Health Summary ---
Author Organization [facility] Address [address] [place] [address] Care Team Providers Care Physician/Ophthalmologist Name Role Phone Joanne Swanson WEB DESIGNER-SHRINK PIT OPERATOR Primary Care Provid er Note from [facility],non-owned Affiliates and Associated Physician Practices is amultiple site organization consisting of ambulatory clinics and hospital sitesin [place], [place], [place] and [place]. This disclosure is being madepursuant to the Care Everywhere program and may not contain all information available regarding this patient. Last updated 18.[facility] Allergies * Penicillins(Urticaria) -High Criticality Medications * Be aware that medications may not be up to date on this document. Alwaysverify current medications with the patient. * levocetirizine (XYZAL) 5 MG tablet Take 5 mg by mouth once daily. * Xqjnloo-Zftlkgvnmomvr-Pixgkwkc (EXCEDRIN MIGRAINE PO) * acetaminophen (TYLENOL) 325 MG tablet Take 1 (one) tablet by mouth every 4 hours as needed for Fever or Pain Maximum allowable Acetaminophen amount = 4 Grams (4000 mg) / 24 hours. * hydrocodone-acetaminophen (NORCO) 5-325 MG tablet(Started 04/30/2014) Take 1 Tab by mouth every 6 hours as needed for Pain. * gabapentin (Neurontin) 300 MG capsule(Started 10/16/2023) TAKE 1 CAPSULE BY MOUTH EVERY DAY AT BEDTIME * Multiple Vitamins-Minerals (One-A-Day Mens Health Formula) TABS Take 1 (one) tablet by mouth once daily * predniSONE (Deltasone) 20 MG tablet(Started 09/20/2023) TAKE 2 TABLETS BY MOUTH ONCE DAILY FOR 5 DAYS * potassium gluconate 595, 99 K, MG PO 595 (99 K) MG tablet Take 99 mg by mouth once daily * propranolol (Inderal) 80 MG tablet(Started 08/18/2023) Take 1 (one) tablet by mouth every 12 hours * Zinc Citrate-Phytase (Zytaze) 25-500 MG CAPS Take 50 mg by mouth once daily * diphenoxylate-atropine (Lomotil) 2.5-0.025 MG tablet(Started 12/03/2023) Take 1 (one) tablet by mouth every 6 hours as needed * ketoconazole (Nizoral) 2 % shampoo(Started 05/11/2023) APPLY TO AFFECTED AREAS ON BODY. LEAVE ON FOR 5 MINUTES BEFORE RINSING. USE IN SHOWER DAILY FOR 7 DAYS, THEN ONCE WEEKLY THEREAFTER. * LYCOPENE PO Take 1 tablet by mouth once daily * pantoprazole EC (Protonix) 40 MG tablet(Started 12/03/2023) Take 1 (one) tablet by mouth once daily * POTASSIUM PO Take 99 mg by mouth once daily * ZINC METHIONATE PO Take 50 mg by mouth once daily * Pembrolizumab (KEYTRUDA IV) * oxyCODONE-acetaminophen (Percocet) 7.5-325 MG tablet(Started 12/19/2023) Take 1 (one) tablet by mouth every 6 hours as needed for Pain * Apixaban Starter Pack 5 MG TBPK(Started 01/15/2024) Take 2 tablets (10 mg) by mouth twice daily for 7 days, then take 1 tablet (5 mg) by mouth twice daily for remaining treatment. Active Problems Problem Noted Date Diagnosed Date Carpal tunnel syndrome of right wrist 12/04/2023 HTN (hypertension) 01/26/2023 Melanoma of back 01/25/2023 Spinal stenosis of lumbar re gion without neurogenic claudication 07/13/2021 Immunizations * INFLUENZA VACCINE, TRIV. (AFLURIA, FLUZONE TRIVALENT; 6MO+) (IIV3)(Given 04/30/2014) Social History Tobacco Use Types Packs/Day Years [...] Frequency of Binge Drinking Not on file 060 11/2023 PHQ-2 Answer Date Recorded Patient Health [...] Mass Index 34.72 12/19/2023 10:30 AM CDT Medical Devices Implanted Type Area Stripping Cutter And Winder Device Identifier Shelf Expiration Date Model / Serial / Lot Cespace Bone Hebert Can [id number] Implanted:Qty: 1 on 04/29/2014 by Irvin Barton MD at [facility] Spine Cervical Aesculap Implant 02/26/2016 [id number] / [id number] / Cspace Bone Hebert Can [id number] Paral Implanted:Qty: 1 on 04/29/2014 by Irvin Barton MD at [facility] Spine Cervical Aesculap Implant 10/01/2016 [id number] / [id number] / 4x14 Const Screw Implanted:Qty: 4 on 04/29/2014 by Irvin Barton MD at [facility] Spine Cervical Aesculap Implant [id number] / / 4x14 S.C. Screw Implanted:Qty: 2 on 04/29/2014 by Irvin Barton MD at [facility] Spine Cervical Aesculap Implant [id number] / / 43mm Hybrid Plate Implanted:Qty: 1 on 04/29/2014 by Irvin Barton MD at [facility] Spine Cervical Aesculap Implant [id number] / / Procedures * Derek Block(Performed 12/19/2023) * [place] REVISE MEDIAN N/CARPAL TUNNEL SURG(Performed 12/19/2023) Performed for Carpal tunnel syndrome of right wrist * XR CERVICAL SPINE 4 OR 5VW(Performed 11/06/2023) Performed for Neck pain * PULMONARY/RESPIRATORY REPORT ORDER(Performed 05/02/2014) * CARDIAC EKG ORDER(Performed 05/02/2014) * LAB RESULTS ORDER(Performed 05/02/2014) * IMAGING/RADIOLOGY/XRAY RESULTS ORDER(Performed 05/01/2014) * PT EVAL AND TREAT(Performed 04/29/2014) * XR CERVICAL SPINE 2 OR 3VW(Performed 04/29/2014) Performed for Spinal Stenosis In Cervical Region, Degeneration of cervical intervertebral disc, Displacement Of Cervical Intervertebral Disc Without Myelopathy, Brachial Neuritis Or Radiculitis Nos * DISCECTOMY WITH FUSION ANTERIOR CERVICAL (ACDF)(Performed 04/29/2014) Performed for Spinal Stenosis In Cervical Region, Degeneration of cervical intervertebral disc, Displacement Of Cervical Intervertebral Disc Without Myelopathy, Brachial Neuritis Or Radiculitis Nos * CULTURE MSSA/MRSA(Performed 04/20/2014) Performed for Other specified pre-operative examination * URINALYSIS REFLEX TO MICROSCOPIC NO CULTURE(Performed 04/20/2014) Performed for Other specified pre-operative examination Results * ANESTHESIA BLOCK PERF (12/19/2023 3:12 PM CDT) Narrative Zaina Cohen APRN-CRNA - 12/19/2023 3:12 PM CDT Zaina Cohen APRN-CRNA ? 12/19/2023 ??3:13 PM Derek Block: ? Patient Location: OR. Procedure: ??Zemple Block Pre Procedure Section: ?? Indications: ??surgical anesthesia Pre-Anesthetic Checklist: ??Patient identified, Site examined, Surgical consent verified, Pre-op evaluation done, Informed consent obtained, Allergies reviewed, IV Checked, Risks and benefits discussed, Monitors and equipment, Time-out performed and Questions answered/anesthesia questions answered Patient Position: ??supine Laterality: ??right Monitors: ??BP, continuous pluse ox, EKG and End tidal CO2 Patient Sedated? ??Yes, Nursing documentation on MAR Block IV already in place: ??yes Procedure: ? Tourniquet: ??single Inflation Pressure: ??250 Arm Exsanguinated: ??yes Tourniquet Inflated: ??yes Pulses Checked: ??yes Drug Injected: ??yes Procedure Tolerance: ??tolerated well ?? no immediate complications Staff Section ? Anesthesia Provider: Zaina Cohen, WEB DESIGNER-BLENDING MACHINE OPERATOR, Performed the procedure Edson Geronimo MD GENERAL ANESTHESIA O RDERABLES * XR CERVICAL SPINE 4 OR 5VW (11/06/2023 12:00 PM CDT) Narrative [facility] - 11/06/2023 12:03 PM CDT Please see progress note in Epic for results. Erich Coleman DO DIAGNOSTIC IMAGING O RDERABLES [facility] * PULMONARY/RESPIRATORY REPORT ORDER (05/02/2014 5:27 AM CDT) Narrative 05/02/2014 5:27 AM CDT Ordered by an unspecified provider. Scanned Document RESPIRATORY THERAPY ORDERABLES * LAB RESULTS ORDER (05/02/2014 5:27 AM CDT) Narrative 05/02/2014 5:27 AM CDT Ordered by an unspecified provider. Scanned Document LAB - THERAPEUTIC DR UG MONITORING ORDERABLES * CARDIAC EKG ORDER (05/02/2014 5:27 AM CDT) Narrative 05/02/2014 5:27 AM CDT Ordered by an unspecified provider. Scanned Document CARDIAC SERVICES ORD ERABLES * IMAGING/RADIOLOGY/XRAY RESULTS ORDER (05/01/2014 10:55 PM CDT) Anatomical Region Laterality Modality Other Narrative 05/01/2014 10:55 PM CDT Ordered by an unspecified provider. Scanned Document IMAGING * XR CERVICAL SPINE 2 OR 3 VW (04/29/2014 5:15 PM CDT) Anatomical Region Laterality Modality Spine Radiographic Jina ging 04/29/2014 6:39 PM CDT Impressions 04/29/2014 6:41 PM CDT Anterior cervical disc fusion from C5-C7. Please refer to the intraoperative notes for further detail. Narrative 04/29/2014 6:41 PM CDT History: Anterior cervical fusion at C5-C6 and C6-C7. Initial Single fluoroscopic spot view was submitted from the operating room which shows C2 down to the top of the C5 vertebral body. Followup images show marking and intraoperative findings consistent with anterior cervical disc fusion from C5-C7. Procedure Note Mirella Aviles MD - 04/29/2014 History: Anterior cervical fusion at C5-C6 and C6-C7. Initial Single fluoroscopic spot view was submitted from the operating room which shows C2 down to the top of the C5 vertebral body. Followup images show marking and intraoperative findings consistent with anterior cervical disc fusion from C5-C7. IMPRESSION Anterior cervical disc fusion from C5-C7. Please refer to the intraoperative notes for further detail. Irvin Barton MD DIAGNOSTIC IMAGING O RDERABLES * (ABNORMAL) CULTURE MSSA/MRSA (04/20/2014 10:50 AM CDT) Culture Negative for MRSA COCO 04/21/2014 1:12 PM CDT [facility] MICROBIOLOGY Culture Staphylococcus aureus (MSSA)(A) COCO 04/21/2014 1:12 PM CDT [facility] MICROBIOLOGY Microbiology SPECIMEN FROM NASAL FOSSAE / Unknown Collection / Unknown 04/20/2014 10:50 AM CDT 04/20/2014 10:50 AM CDT Irvin Barton MD LAB - MICROBIOLOGY O RDERABLES [facility] MICROBIOLOGY [address] [place] [address], [facility] [place] * URINALYSIS ROUTINE AUTO (04/20/2014 10:48 AM CDT) Color UA Yellow Straw, Yellow, Dark Yellow 04/20/2014 11:14 AM CDT [facility] Clarity UA Clear 04/20/2014 11:14 AM CDT [facility] Specific [place] UA 1.025 1.005 - 1.030 04/20/2014 11:14 AM T [facility] pH UA 6.0 5.0 - 8.0 pH 04/20/2014 11:14 AM T [facility] Protein UA Negative Negative 04/20/2014 11:14 AM T [facility] Blood UA Negative Negative 04/20/2014 11:14 AM T [facility] Leukocyte UA Negative Negative 04/20/2014 11:14 AM T [facility] Nitrite UA Negative Negative 04/20/2014 11:14 AM T [facility] Glucose UA Negative Negative 04/20/2014 11:14 AM T [facility] Ketone UA Negative Negative 04/20/2014 11:[address] [facility] Bilirubin UA Negative Negative 04/20/2014 11:[address] [facility] Urobilinogen UA 0.2 0.1 - 1.0 EU/dL 04/20/2014 11:14 AM T [facility] Urine URINE SPECIMEN OBTAINED BY CLEAN CATCH PROCEDURE / Unknown Collection / Unknown 04/20/2014 10:48 AM CDT 04/20/2014 10:48 AM T Irvin Barton MD LAB - URINALYSIS ORD ERABLES [facility] [address] [place] [address] Care Teams Physician/Ophthalmologist Relationship Specialty Start Date End Date Joanne Swanson, WEB DESIGNER-SHRINK PIT OPERATOR [address] [place] [address] PCP - General 11/16/22
--- OUTSIDE RECORDS SUMMARY | 2024-08-19 14:56 | XMS_ITS | Encounter Summary ---
[facility] Address [address] [place] [address] Care Team Providers Care Hoisting Laborer Name Role Phone Lyle Lewis DO Primary Care Provider [phone] Reason for Referral * PET Scan (Routine) - Closed Specialty Diagnoses / Procedures Referred By Daniel barksdale Referred To Contact Radiology Diagnoses Personal history of DVT (deep vein thrombosis) Melanoma of trunk (CMS/HCC) Chemotherapy induced diarrhea Procedures PET TUMOR IMG W CT WHOLE BODY Catherine Cuadra MD [address] [facility] [address] [place] [id number] Phone: tel: fax: [facility] Nuclear Medicine [address] [place] [address] Phone: tel: [phone] Referral ID Status Reason Start Date Expiration Date V isits Requested Visits Authorized [id number] Closed [facility] CTS 05/10/2024 06/10/2025 1 1 RVISOR OF RESEARCH Reason for Visit * PET Scan (Routine) - Closed Specialty Diagnoses / Procedures Referred By Contac t Referred To Contact Radiology Diagnoses Personal history of DVT (deep vein thrombosis) Melanoma of trunk (CMS/HCC) Chemotherapy induced diarrhea Procedures PET TUMOR IMG W CT WHOLE BODY Catherine Cuadra MD [address] [place] [phone] Phone: tel: fax: [facility] Nuclear Medicine [address] [place] [address] Phone: tel: [phone] Referral ID Status Reason Start Date Expiration Date V isits Requested Visits Authorized [id number] Closed [facility] CTS 05/10/2024 06/10/2025 1 1 Encounter Details Date Type Department Care Team (Late st Contact Info) Description 08/18/2024 8:14 AM SUPERVISOR OF RESEARCH - 08/18/2024 11:59 PM SUPERVISOR OF RESEARCH Hospital Encounter [facility] Nuclear Medicine [address] [place] [id number] Catherine Cuadra MD [address] [place] [id number] Arrived Discharge Disposition: Home or Self Care Social History Tobacco Use Types Packs/Day Years Used Date Smoking Tobacco: Never Smokeless Tobacco: Never Alcohol Use Standard Drinks/Week Comments Yes 0 [...] on file documented as of this encounter Discharge Summaries * Erich Reinoso CNMT - 08/18/2024 9:15 AM CST OUTPATIENTS DISCHARGE INSTRUCTIONS - DISCHARGE INSTRUCTION CARD GIVEN TO PATIENT: Thank you for choosing [facility], it has been a privilege to serve you! Our team is called to provide compassionate care and exceptional service. Your images will be read by a physician, and your resultswill be available in your [facility] account and to your ordering provider, within 48 hours. Thank youfor trusting [facility] with your care. Your [facility] Imaging Services Care Team RVISOR OF RESEARCH documented in this encounter Medications at Time of Discharge budesonide (ENTOCORT EC) 3 mg Enteric Coated 24 hour capsule Take 3 mg by mouth daily. diphenoxylate-atr opine 2.5 mg-0.025 mg tablet Take 1 Tablet by mouth 4 times daily as needed for Diarrhea/Loos e Stools. famotidine (PEPCID) 20 mg tablet Take 20 mg by mouth 2 times daily. lipase/protease/a mylase (PANCRELIPASE 16,000 ORAL) Take by mouth. apixaban (Eliquis) 5 mg tablet Take by mouth 2 times daily. documented as of this encounter Miscellaneous Notes * Treatment Plan - Erich Reinoso CNMT - 08/18/2024 9:15 AM SUPERVISOR OF RESEARCH Images from the original note were not included. [facility] IMS Medication and Flush Protocol - Nuclear Medicine Procedures [facility] Approved by: [facility] - Medical Executive Committee Approval Date: 04/04/2024 ORDERS ARE ENTERED ???PER PROTOCOL?? Enter the protocol in the patient's electronic health record using smartphrase: .imagingnucmedicineprotocol The Nuclear Medicine Department and PET/CT Department, in collaboration with the Radiology Biofuels Plant Superintendent, Automotive Manager, Non-Invasive Cardiology Biofuels Plant Superintendent, the Pharmacy and Therapeutic Committee, and the Medical Executive Committee, has approved the Nuclear Medicine Medication and Flush Protocol available for implementation by the Site Administrator The Site Administrator may implement the Nuclear Medicine Medication and Flush Protocol when a provider orders a Nuclear Medicine study by paper or electronic order The Site Administrator will order all medication that appears on the MAR using 'Per Protocol or Standing - Cosign Required' The Site Administrator will: Verify the correct patient using two patient identifiers Review the order to verify appropriate procedure by reviewing the paper or electronic order before administering the radiopharmaceutical. The order must be signed by a provider. For female patients, confirm the patient is not or breast-feeding as described in department policies Ensure consent forms are obtained for Stress Test and Therapeutic procedures At the time of administration of the radiopharmaceutical, verify the correct patient, correct dosage and radiopharmaceutical with the dose ticket, and the route of administration. All administrationswill be performed in designated areas. Only authorized personnel are to administer radiopharmaceuticals. All injections are performed using radiation safety and universal precautions The exact dose amount assayed in the dose calibrator will be recorded in the Nuclear Medicine Information System Communication Orders: For ordered imaging procedures requiring intravenous access: Initiate a peripheral IV, if not already in place, and discontinue IV prior to discharge (if outpatient). Enter order if needed: Insert Peripheral IV Medication Orders: Local Anesthetic for use to initiate IV ADULT Lidocaine 4% (L.M.X.4) applied topically ONE TIME prior to IV catheter insertion PRN (L.M.X.4 % should be applied 15 minutes prior to procedure) Chart RBCTAGGINGSTL and/or WBCTAGGINGSTL smartphrase as appropriate PEDIATRIC Lidocaine 4% (L.M.X.4) applied topically ONE TIME prior to IV catheter insertion PRN (apply 15 minutes prior to procedure) Sucrose 24% (Tootsweet; Sweet-Ease) oral solution 0.2 mL oral (apply to tongue on pacifier or clean, gloved finger), ONE TIME 2 minutes prior to painful procedure. May repeat dose x1 PRN to complete procedure Sodium chloride 0.9% (normal saline) flush 10 mL PRN for saline lock or medication administration. For respiratory distress, initiate oxygen and/or increase O2 to maintain saturation greater than 90% Procedure Specific Medications: Adult Procedures & Dosages: Note: Radiopharmaceuticals dosages with a range are determined by financial legal assistant calibration Note: In acute Tc99m shortages, radiopharmaceutical dosages may be decreased with approval and documentation within department from director medical/AU. Note: Hybrid SPECT/CT imaging used as appropriate for exam and/or as directed by Radiologist PROCEDURE DOSAGE Bone Marrow Imaging Xc64y-Xbblhwbw Sulfur Colloid (Yjpmsmfbea84w- filtered sulfur colloid), Administer 8mCi, IV, ONE TIME. Bone Scan Imaging (Whole Body, Limited, 3-Phase, or SPECT) Rg94t-LRS (Mpakzqekbz94m-xoxhbmtqm diphosphonate), Administer 25mCi, IV, ONE TIME. OR Jn62a-ITO (Dxpjnbwwxh26g-azsvybevrjdxinqe diphosphonate), Administer 25mCi, IV, ONE TIME. Brain Imaging Ku05h-VJXV (Pqghgknmae84z-wouegjzqdo-vvsulprj-unbwoziwawma), Administer 20mCi, IV, ONE TIME. Brain SPECT Imaging Om45x-YADAW (Ceretec) (Leasitfsqi70k-resgogfeuhybwkzezhg amine oxime), Administer 20mCi, IV, ONE TIME. OR Tl-201 (Thallium Chloride-201), Administer 6mCi, IV, ONE TIME. C14 Urea Breath Test (PY Test) X91-Prij (Carbon-14 Urea), Administer 1uCi capsule, Orally, ONE TIME. Cisternogram Imaging In-111 DTPA (Indium-111 btglmvxeoc-mtvwfxww-jyvgivegwciw), Neuroradiologist toadminister 0.5mCi, Intrathecally, ONE TIME. Cystogram Imaging Tc-99m Pertechnetate (Tgkenfgurd56p-lgfndhaugwqss) Administer 1mCi Iz62x-dqjvhttxddpcu, intra-ferrell catheter, ONE TIME AND Administer NS per calculated expected bladder volume, intra-ferrell catheter, ONE TIME. DaTscan Imaging I-123 Ioflupane (Iodine-123 ioflupane), Administer 5mCi, IV, ONE TIME. AND Administer SSKI (Potassium Iodide) drops, 130mg, Orally, ONE TIME 30 minutes prior to radiopharmaceutical injection. Diverticulum/Meckel's Imaging Tc-99m Pertechnetate (Wlyfqlwasx24s- pertechnetate), Administer 15mCi,IV, ONE TIME. Esophageal Reflux Imaging Dc05o-Flzctu Colloid (Zwzxtwdwhd67x-biivdw colloid), Administer 1mCi in 1oz whole milk. Follow with additional 7oz whole milk, Orally, ONE TIME. Ga-67 Citrate - Planar Imaging Ga-67 Citrate (Gallium-67 Citrate), Administer 5mCi, IV, ONE TIME. Ga-67 Citrate - SPECT Imaging Ga-67 Citrate (Gallium-67 Citrate), Administer 10mCi, IV, ONE TIME. Gastric Empty Imaging - Liquid Meal Vs29d-TRIQ (Iwugguybal88u-dheauypwzj-qflhdini-usqfsybeugb), Administer 1mCi in 300mL tap water, Orally, ONE TIME. Gastric Empty Imaging - Solid Meal Ir60x-Curwgk Colloid (Flnwranvlt86m-dseyng colloid), Administer 0.5mCi in 4 oz egg beaters or in 1 package of cooked instant oatmeal or in 1 container cooked of Easy Mac 'n Cheese, Orally, ONE TIME. GI Bleed Imaging (GI Blood Loss) Tc-99m Pertechnetate (Gekftjjiov78f- pertechnetate), Administer 25mCi heparinized RBCs, IV, ONE TIME. Hepatic Blood Pool Imaging Tc-99m Pertechnetate (Zrklmcejeo56x-bcmfnyxseqnju), Administer 25mCi heparinized RBCs, IV, ONE TIME. Hepatic Hemangioma Imaging Tc-99m Pertechnetate (Vbhrgoccrc68f-jfyhypvtpdygn), Administer 25mCi heparinized RBCs, IV, ONE TIME. Hepatobiliary Scan Imaging Tc-99m Mebrofenin (Luklkvhlpo91u-fzbvubyghb), Administer 5 mCi IV, ONE TIME *For inpatients only, if bilirubin >5mg/dL, Administer 8 mCi IV, ONE TIME *For inpatients only, if bilirubin > 8mg/dL, consult nuclear medicine physician prior to administering radiopharmaceutical Hepatobiliary Scan with Ejection Fraction Imaging Tc-99m Mebrofenin (Xolfymenfi95f-ncfbfibxug), Administer 5 mCi IV, ONE TIME. *For inpatients only, if bilirubin >5mg/dL, Administer 8 mCi IV, ONE TIME *For inpatients only, if bilirubin > 8mg/dL, consult nuclear medicine physician prior to administering radiopharmaceutical AND For immediate use - Sincalide (Kinevac) 0.02 mcg/kg IV, ONE TIME, diluted with NS to a total infused volume of 30 mL. Infuse via an infusion device over 30 minutes. *If Sincalide unavailable, 240mL (8oz) Ensure Plus, Orally, ONE TIME. Hepatobiliary Scan with Pre-Treatment Imaging Tc-99m Mebrofenin (Kofykcsnol98b-pzcetpqeci), Administer 5 mCi IV, ONE TIME. *For inpatients only, if bilirubin >5mg/dL, Administer 8 mCi IV, ONE TIME *For inpatients only, if bilirubin > 8mg/dL, consult nuclear medicine physician prior to administering radiopharmaceutical AND For immediate use - Sincalide (Kinevac) 0.01 mcg/kg IV, ONE TIME, diluted with NS to a total infused volume of 5 mL, Infuse via hand push over 5 minutes. In-111 Dual Isotope Imaging In-111 Oxine (Indium-111 Oxine), Administer at least 300uCi, up to 600uCi, heparanized WBC, IV, ONETIME. AND Zu24r-VLB (Suwnbxifbm65r-fnaziliah diphosphonate), Administer 20mCi for BMI < 35; Administer 25 mCi for BMI >= 35, IV, ONE TIME. OR In-111 Oxine (Indium-111 Oxine), Administer at least 300uCi, up to 600uCi, heparanized WBC, IV, ONETIME. AND Il13l-Hkzduvpx Sulfur Colloid (Mijzdyvwas72o-ezspgqew sulfur colloid), Administer 8mCi, IV, ONE TIME. In-111 WBC Imaging In-111 Oxine (Indium-111 Oxine), Administer at least 300uCi, up to 600uCi, heparanized WBC, IV, ONE TIME. Liver/Spleen Imaging Sh97k-Ozsfun Colloid (Skbolkvmjo69h-lyinbg colloid), Administer 5mCi, IV, ONE TIME. Lung Xenon Perfusion Imaging (normal or quantitative) Tc-99m MAA (Bnhasqazpj01v- macroaggregated albumin), Administer 4mCi, IV, ONE TIME. Lung Xenon Ventilation Imaging (normal or quantitative) Xe-133 (Xenon-133), Administer at least 10 mCi, up to 30 mCi, Inhalation, ONE TIME. Lung Perfusion Imaging (normal or quantitative) Tc-99m MAA (Rqofocqqwg42n- macroaggregated albumin),Administer 4mCi, IV, ONE TIME. Lung Perfusion SPECT Imaging Tc-99m MAA (Mtrmhkrsuu47s-mblfuczoewrpbxz albumin), Administer 4mCi, IV, ONE TIME Lung Perfusion Imaging - Patient (normal or quantitative) Tc-99m MAA (Rjudfeicfz22i-xefvkkiefiqmjui albumin), Administer 2mCi, IV, ONE TIME. Lymphoscintigraphy - Breast Cancer, Next Day Surgery Ol63q-Qxxytscswe (Uqjdcghlff54p-tdjsxpgftc), Administer 2mCi in 2 divided doses of 1mCi each, intradermal, ONE TIME. Lymphoscintigraphy - Breast Cancer, Same Day Surgery Qv78r-Aksbnvhioz (Hcrvbemtvp59h-dopiknauzt), Administer 0.5mCi in 2 divided doses of 250uCi each, intradermal, ONE TIME. Lymphoscintigraphy - Lymphedema Sb28c-Vxcuxulamg (Bdmqrsgfpu63d-bximhlnimw), For each extremity, administer 2mCi in 2 divided dosesof 1mCi each, subcutaneous, ONE TIME. Lymphoscintigraphy - Head & Neck Cancer, Next Day Surgery Bz96k-Uupuwyhkai (Wwijcxqvob81m-pfmysgvwte), Administer 2mCi in 2 divided doses of 1mCi each, intradermal, ONE TIME. Lymphoscintigraphy - Head & Neck Cancer, Same Day Surgery Ly61y-Qkhkiyocyl (Mzqnugjrrx21b-kztpdcleff), Administer 0.5mCi in 2 divided doses of 250uCi each, intradermal, ONE TIME. Lymphoscintigraphy - Skin Cancer, Next Day Surgery Lu78m-Lvudmbwvrt (Hjtbzmxtqd09m-zkklmcgtue), Administer 2mCi in 4 divided doses of 0.5mCi each, intradermal, ONE TIME. Lymphoscintigraphy - Skin Cancer, Same Day Surgery Jj39n-Jaakwastcp (Bvxpspunon33p-fatosjcydh), Administer 0.5mCi in 4 divided doses of 125uCi each, intradermal, ONE TIME. Lymphoscintigraphy - Skin Cancer, Small Body Area, Next Day Surgery Jj27v-Qstraibndy (Cmrramlanm33a-fooujeqffc), Administer 2mCi in 2 divided doses of 1mCi each, intradermal, ONE TIME. Lymphoscintigraphy - Skin Cancer, Small Body Area, Same Day Surgery Tc99m- Lymphoseek (Xufjhstewz96y-kzcudgwviq), Administer 0.5mCi in 2 divided doses of 250uCi each, intradermal, ONE TIME. Lymphoscintigraphy - Vulvar Melanoma Next Day Surgery Mp29a-Jxzaqraohi (Ovituettvs05v-ibyhmnwpur), Administer 2mCi in 1 dose, intradermal, ONE TIME. Lymphoscintigraphy - Vulvar Melanoma, Same Day Surgery An45x-Elmpxggqeo (Xzgxzdacsi48g-slrfwhtxio), Administer 0.5mCi in 1 dose, intradermal, ONE TIME. MIBG Imaging I-123 MIBG (Iodine-123 metaiodobenzylguandidine), Administer 10mCi, IV, ONE TIME. AND Administer SSKI (Potassium Iodide) drops, 130mg, Orally, ONE TIME 30 minutes prior to radiopharmaceutical injection. Microsphere Mapping (Y90 Mapping) Tc-99m MAA (Vswdkltkuw27d-wslqffhmflhsahu albumin), Interventional Radiologist to administer (1) 2mCi in in 2mL NS, intra-arterial via catheter, ONE TIME. OR Tc-99m MAA (Jeewrzwrdo49l-peqkvcuvgkwkpac albumin), Interventional Radiologist to administer (2) 2mCi in in 2mL NS, intra-arterial via catheter, ONE TIME. MUGA/RVG Imaging Tc-99m Pertechnetate (Stjdmbgumn73m-ykujreuhzbajy), Administer 25mCi heparinized RBCs, IV, ONE TIME. Myocardial Amyloid Scintigraphy (Hot PYP Scan) Br96y-MBI (Fnpcjcojji78z-zawbafpznruej), Administer 15mCi, IV, ONE TIME. OR Vk60-BXY (Ymeamjfgxx38o-uutzrtdnaagnoxxo diphosphonate), Administer 15mCi, IV, ONE TIME. Myocardial Dual Isotope Imaging Tl-201 (Thallium Chloride-201) AND Ww66d-Vmlznwt (Uzepfulusa60t-zxpmfiq), Administer 3mCi Tl-201forresting images, IV, ONE TIME AND Administer Xw23y-Mxhfomm (Rsglipxsez80d-vlsvwak), for stress images based on patient's weight, IV, ONE TIME. Male or Female Patients: <180lbs: 12mCi Male or Female Patients: 181-240lbs: 15mCi Female Patients 241-265lbs: 18mCi Male Patients 241-330lbs: 18mCi Female Patients >265lbs: 24mCi Male Patients >330lbs: 24mCi Myocardial Planar Imaging (for patients >= table weight limit) Md36a-Lytytrt (Tdkmljfqsr10v-Lkeigov), Administer 30mCi, IV, ONE TIME for rest images, ONE TIME for stress images. Myocardial Rest Imaging - SPECT Imaging Tl-201 (Thallium Chloride-201), Administer 4mCi, IV, ONE TIME. OR Lu38l-Qiqvhxp (Wdjoifqkve55c-Wzajiht), Administer 6mCi for female patients ?? 264 lb., IV, ONE TIME. OR Hx85b-Tzakbit (Embhigbiow84p-Smxmypm), Administer 6mCi for male patients ?? 329 lb., IV, ONE TIME. OR Or44k-Zrwleet (Qrkjnfthte94t-Kbhxcaf), Administer 8mCi for female patients >= 265-399 lb., IV, ONE TIME. OR Jj15r-Citllfo (Aztimgshaa16g-Gqpnqqx), Administer 8mCi for male patients >= 330- 399 lb., IV, ONETIME. OR Wc47x-Vfwjohq (Eofjbkmunm29g-Gtjdohn), Administer 10mCi for all patients >= 400- 500 lb., IV, ONETIME. Myocardial Stress - SPECT Imaging Fx85w-Acsopii (Uavbjwozum43a-Rurwkrn), Administer 18mCi for female patients ?? 264 lb., IV, ONE TIME. OR Zt10u-Fkvaece (Glzgasyzbz08a-Onuckuj), Administer 18mCi for male patients ?? 329 lb., IV, ONE TIME. OR Wc14o-Ckpqtqq (Ufxeubldfl15t-Ramvbjo), Administer 24mCi for female patients >= 265-399 lb., IV, ONE TIME. OR Gj72q-Rypnxqs (Ppefoxeadg56h-Hfxvtcf), Administer 24mCi for male patients >= 330-399 lb., IV, ONE TIME. OR Za18r-Qusclvs (Jpbilimhxr97n-Hgfglag), Administer 30mCi for all patients >= 400- 500 lb., IV, ONETIME. Myocardial Viability Imaging Tl-201 (Thallium Chloride-201), Administer 2.5mCi, IV, ONE TIME. Note: If patient >=250 lbs, TI-201 (Thallium Chloride-201), Administer 3.5mCi, IV, ONE TIME. Octreoscan In-111 Pentetreotide (Indium-111 Pentetreotide), Administer 6mCi, IV, ONE TIME. Parathyroid Imaging Gx10f-Hkvacdqwu (Iywrvbyvjg22e-vzhbigcpp), Administer 20mCi, IV, ONE TIME. Peritoneal Cavity Scintigraphy So33r-Inzhva Colloid (Ezmeberxfp24n-mpsivw colloid), Administer 2mCiin 3mL NS, via peritoneal dialysis, ONE TIME. Peritoneovenous Shunt Scintigraphy Tc-99m MAA (Civiqsgiyw79c-uzdusxbrcsluvmc albumin), Physician toadminister 5mCi in 3mL NS, Intraperitoneal, ONE TIME. PET/CT Axumin F-18 Axumin (Ilvxqftc34-hshqyczzcwkg), Administer 10mCi, IV, ONE TIME. PET/CT Brain Imaging (Amyvid) F18- florbetapir [Amyvid??, (E)-4-(2-(6-(2-(2-(2[F-18]- (fluoroethoxy)ethoxy)ethoxy)gjoxvmgn-6-yd)vinyl)-N-methylbenzamine], Administer 10mCi, IV, ONE TIME. PET/CT Brain Imaging (FDG) F18-FDG (Mcpfqcub48-mgpzbmkembukummroh), Administer 10mCi, IV, ONE TIME. PET/CT Dotatate Imaging Ga-68 Dotatate (Gallium-68 Dotatate), Administer 5.4mCi, IV, ONE TIME. PET/CT Dotatate Imaging Cu-64 Detectnet (Copper-64 Dotatate), Administer 4mCi, IV, ONE TIME. PET/CT Myocardial Scan (Sarcoidosis or Viability) F18-FDG (Drplhkfx84- fluorodeoxyglucose), Administer 0.11mCi/kg with at least 8mCi, up to 17mCi, IV, ONE TIME. PET/CT Limited, Standard, or Whole-Body Oncology Imaging F18-FDG (Mjbxpjwo43-gfjfjczrbxniawihwq), Administer 0.11mCi/kg, with at least 8mCi, up to 17mCi, IV, ONE TIME. PET/CT Pylarify Imaging K11-Hmmeqvfm (Cfqiqucz45-Elzwofzveoxzh), Administer 9mCi, IV, ONE TIME. Pluvicto Therapy Lawanda-177 (Lutetium-177 vipivotide tetraxetan), Administer per Written Directive, IV,ONE TIME. Renal Scintigraphy (AKILA-Inhibitor Renal Scan) Mv99b-LKL4 (Jbzgernfnt21e- mercaptoacetyltriglcine), Administer 5mCi, IV, ONE TIME. AND Administer Enalaprilat (Vasotec) 2.5mg, IV, ONE TIME. Dilute to 5mL total volume with normal salineand infuse via hand push injection over 5 minutes. OR Administer Captopril, 50mg capsule crushed and dissolved in 150mL tap water, Orally, ONE TIME. Renal Scintigraphy (Cortical Imaging) Sp02k-XFBQ (Arinhzfboe72i- dimercaptosuccinic acid), Administer 5mCi, IV, ONE TIME. Renal Scintigraphy (Diuretic Renal Scan) Xk12u-HWMT (Ixcqaseaxa39f-vrnxablalh-pgojosxn-naazyzcijomz), Administer 5mCi, IV, ONE TIME. AND Administer Lasix (furosemide) 40mg, IV push over 2 minutes, ONE TIME. OR Zf60f-VVZ1 (Eqqxsnldbl44l-drsykunyepmilbxrfgqvaeb), Administer 5mCi, IV, ONE TIME. AND Administer Lasix (furosemide), 40mg, IV push over 2 minutes, ONE TIME. Renal Scintigraphy (Flow and Function Scan) No75a-MLUN (Rljgrmbzli21h-jemvjubwuy-mmbisplj-svngpkhjnmpj), Administer 5mCi, IV, ONE TIME. OR Jk21b-HWR2 (Oyrarnvihw20y-muebkxilgwlypqwfdsmilha), Administer 5mCi, IV, ONE TIME. Renal Scintigraphy (Renal Transplant Scan) Dq45e-UQHJ (Nldsfkncbd25i-kaartbayei-nspadqak-zbsfovsrslbs), Administer 5mCi, IV, ONE TIME. OR Iz64s-ONI6 (Bmvztkudje30g-onyuazljnpvbrunbxapxevp), Administer 5mCi, IV, ONE TIME. Salivary Imaging Tc-99m Pertechnetate (Elcaidnnxs61r-ahphhjszjcnbw), Administer 5mCi, Orally, ONE TIME. Shunt Patency Imaging (CSF Shunt Imaging) Ml31w-TKTE (Pbynaujfri50n-jrsncuziyp-ofzfmuts-mxgygbgsquzd), Neurosurgeon or neurosurgeon's PA to administer 0.5mCi, intra-shunt reservoir, ONE TIME. Splenic Imaging Tc-99m Pertechnetate (Mnwctefohr86h-xyqbgchniyeib), Administer 6mCi heparinized, heat damaged RBCs, IV, ONE TIME. As91i-PWM Imaging Mm57e-Qzbtclb (Epfqlmknzj24m-Lkwlzcq), Administer 15mCi heparinized WBC, IV, ONE TIME. Thyrogen Injection Thyrogen (thyrotopin alverto), Administer 0.9mg, deep IM, every 24 hours for 2 doses. Thyroid Imaging Tc-99m Pertechnetate (Otbadiuxfe93z-gnsdjcajizyqm), Administer 10mCi, IV, ONE TIME. OR I-123 Na Iodide (Iodide-123 Na Iodide), Administer 200 uCi capsule, Orally, ONE TIME. Thyroid Scan & Uptake I-123 Na Iodide (Iodide-123 Na Iodide), Administer 220 uCi capsule, Orally, ONE TIME. Thyroid Uptake I-123 Na Iodide (Iodide-123 Na Iodide), Administer 220 uCi capsule, Orally, ONE TIME. OR I-131 Na Iodide (Iodide-131 Na Iodide), Administer at least 5 uCi, up to 25 uCi, Orally, ONE TIME. Whole Body I-123 Imaging I-123 Na Iodide (Iodide-123 Na Iodide), Administer 2.5 mCi capsule, Orally, ONE TIME. Whole Body I-131 Imaging Diagnostic: I-131 Na Iodide (Iodide-131 Na Iodide), Administer 3 mCi capsule or solution, Orally, ONE TIME. Therapeutic: Administer per Written Directive Xofigo Treatment Ra-223 dichloride, Administer 1.49 mCi/kg per Written Directive, IV, ONE TIME. Y90 Microsphere Treatment Y-90 SirSpheres (Yittrium-90 microspheres), Administer per Written Directive, Intra-Arterial, ONE TIME. Pediatric Procedures & Dosages: Note: Radiopharmaceuticals dosages with a range are determined by financial legal assistant calibration Note: In acute Tc99m shortages, radiopharmaceutical dosages may be decreased with approval and documentation within department from director medical/AU. Note: Hybrid SPECT/CT imaging used as appropriate for exam and/or as directed by Radiologist PROCEDURE DOSAGE Bone Marrow Imaging Gx54d-Lzeedsgv Sulfur Colloid (Fsadoqrzsa33t-sktfvdiy sulfur colloid), Administer 0.14mCi/kg with at least 1mCi, up to 8mCi, IV, ONE TIME. Bone Scan Imaging (Whole Body, Limited, 3-Phase, or SPECT) Me68a-AVU (Avbflxsdfp25g-grwtqzmpm diphosphonate), Administer 0.25mCi/kg with at least 1mCi, up to 25mCi, IV, ONE TIME. OR Zb91m-IYF (Qypaungmft83b-qrihjjbfzdippezq diphosphonate), Administer 0.25mCi/kg with at least 1mCi,up to 25mCi, IV, ONE TIME Brain Imaging Qr96f-GOAJ (Iirgonigvz12i-njjexykpzs-cnfirjwh-gdpkvdyjswav), Administer 0.3mCi/kg with at least 5mCi, up to 20mCi, IV, ONE TIME. Brain SPECT Imaging We21m-EXRJI (Ceretec) (Gjrgvvkguf39s-lhjgobhmxsgvjggrggf amine oxime), Administer 0.3mCi/kg with atleast 3mCi, up to 20mCi, IV, ONE TIME. C14 Urea Breath Test (PY Test) G61-Qqzi (Carbon-14 Urea), Administer 1uCi capsule, Orally, ONE TIME. Cisternogram Imaging In-111 DTPA (Indium-111 avzyfwovkk-ywpqeeay-pvdjquzfcnew), Neuroradiologist to administer 0.07mCi/kg with at least 0.1mCi, up to 0.5mCi, Intrathecally, ONE TIME. Cystogram Imaging Tc-99m Pertechnetate (Nycllrpjrg86a-bwpnghyesukdm) Administer 1mCi, intra-ferrell catheter, ONE TIME AND Administer NS per calculated expected bladder volume, intra-ferrell catheter, ONE TIME. Diverticulum/Meckel's Imaging Tc-99m Pertechnetate (Vciyiavifd47l-vzxedpuvdllin), Administer 0.05mCi/kg with at least 0.25mCi, upto 15mCi, IV, ONE TIME. Esophageal Reflux Imaging - <1yoa Qz96i-Qxdyhd Colloid (Lwntpfhoht04a-hshzcg colloid), Administer 0.1mCi for patients <3.5lb., Orally, ONE TIME. OR Administer 0.2mCi for patients 3.5-6.5lb., Orally, ONE TIME. OR Administer 0.3mCi for patients >6.5lb., Orally, ONE TIME. *For all administrations, determine amount of formula or breast milk patient consumes in 1 hour by dividing their normal feed amount by 4. Then, take this calculated amount and divide into 2 so that you can tag ?? with the radiopharmaceutical and feed the remaining ?? 'cold'; feed the radioac tive labeled formula/milk and then 'cold' formula/milk over a 10-minute total period of time. Esophageal Reflux Imaging - >1yoa Tg85r-Glilwq Colloid (Bhvbnkncjk64w-zsltje colloid), Administer 0.5mCi in 1 oz whole milk, Orally, ONE TIME. Follow with 7 oz whole milk. Ga-67 Citrate - Planar Imaging Ga-67 Citrate (Gallium-67 Citrate), Administer 0.07mCi/kg with at least 0.5mCi, up to 5mCi, IV, ONETIME. Ga-67 Citrate - SPECT Imaging Ga-67 Citrate (Gallium-67 Citrate), Administer 0.14mCi/kg with at least 1mCi, up to 10mCi, IV, ONE TIME. Gastric Empty Imaging - Liquid Meal Cf02a-Jgsont Colloid (Qvsosfsnpd15i-lmohzx colloid), Administer7 uCi/kg with at least 250uCi, up to 500uCi, Orally, ONE TIME. *For all administrations, determine amount of formula or breast milk patient consumes in 1 hour by dividing their normal feed amount by 4. Then, take this calculated amount and divide into 2 so that you can tag ?? with the radiopharmaceutical and feed the remaining ?? 'cold'; feed the radioac tive labeled formula/milk and then 'cold' formula/milk over a 10-minute total period of time.OR Cu08n-ACRM (Nxgnjgipkz90y-dxopalmizz-phvbrtre-rqfuzdgqonu), Administer 1mCi in 300mL tap water, Orally, ONE TIME. *Follow Pk78d-FRUR dosing if the pediatric patient is not an and consumes water. Gastric Empty Imaging - Solid Meal Rt29k-Tfundz Colloid (Mjgajkeqca83r-qtujgd colloid), Administer 7uCi/kg with at least 250uCi, up to 500uCi in 4 oz eggbeaters or in 1 package of cooked instant oatmeal, or in 1 container cooked of Easy Mac 'n Cheese, Orally, ONE TIME. GI Bleed Imaging (GI Blood Loss) Tc-99m Pertechnetate (Mijcqvqkns48r- pertechnetate), Administer 0.32mCi heparinized RBCs with at least 2mCi, up to 25mCi, IV, ONE TIME. Hepatic Blood Pool Imaging Tc-99m Pertechnetate (Vtvmakueqw19w-lotuuscauymmm), Administer 0.32mCi heparinized RBCs with at least 2mCi, up to 25mCi, IV, ONE TIME. Hepatic Hemangioma Imaging Tc-99m Pertechnetate (Nxjnwduisq39h-epxttsqcgjxrq), Administer 0.32mCi heparinized RBCs with at least 2mCi, up to 25mCi, IV, ONE TIME. Hepatobiliary Scan Imaging Tc-99m Mebrofenin (Wjeipaxrss58d-bqlnvrenam), Administer 0.05mCi/kg withat least 0.5mCi, up to 5mCi, IV, ONE TIME *For inpatients only, if bilirubin >5mg/dL, Administer 0.08mCi/kg with at least 1mCi, up to 8mCi, IV, ONE TIME *For inpatients only, if bilirubin > 8mg/dL, consult nuclear medicine physician prior to administering radiopharmaceutical Hepatobiliary Scan Imaging for in Jaundice Tc-99m Mebrofenin (Ynnrfyahud94p-iavztozebe), Administer 0.08mCi/kg with at least 1mCi, up to 8mCi, IV, ONE TIME AND Administer Phenobarbital 5mg/kg/day (may be administered in 2 divided doses) for 3 days prior to imaging, IV, ONE TIME PER DAY. Hepatobiliary Scan with Ejection Fraction Imaging Tc-99m Mebrofenin (Ghbjzghoph45y-uvhbmtggii), Administer 0.05mCi/kg with a at least 0.5mCi, up to 5mCi IV, ONE TIME *For inpatients only, if bilirubin >5mg/dL, Administer 0.08mCi/kg with at least 1mCi, up to 8mCi, IV, ONE TIME *For inpatients only, if bilirubin > 8mg/dL, consult nuclear medicine physician prior to administering radiopharmaceutical AND For immediate use - Sincalide (Kinevac) 0.02 mcg/kg IV, ONE TIME, diluted with NS to a total infused volume of 30 mLs. Infuse via an infusion device over 30 minutes. *If Sincalide unavailable, 3.5ml/kg, up to 240mL (8oz) Ensure Plus, Orally, ONE TIME. Hepatobiliary Scan with Pre-Treatment Imaging Tc-99m Mebrofenin (Xgnchfaccr34h- mebrofenin), Administer 0.05mCi/kg with a at least 0.5mCi, up to 5mCi IV, ONE TIME *For inpatients only, if bilirubin >5mg/dL, Administer 0.08mCi/kg with at least 1mCi, up to 8mCi, IV, ONE TIME *For inpatients only, if bilirubin > 8mg/dL, consult nuclear medicine physician prior to administering radiopharmaceutical AND For immediate use - Sincalide (Kinevac) 0.01 mcg/kg IV, ONE TIME, diluted with NS to a total infused volume of 5 mL, Infuse via hand push over 5 minutes. In-111 Dual Isotope Imaging In-111 Oxine (Indium-111 Oxine), Administer 5uCi/kg with at least 300uCi, up to 500uCi, heparanized WBC, IV, ONE TIME. AND Bf87s-GLW (Yhnldneqjw16c-ikekmapbe diphosphonate), Administer 0.25mCi/kg with at least 1mCi, up to 20mCi, IV, ONE TIME. OR In-111 Oxine (Indium-111 Oxine), Administer 5uCi/kg with at least 300uCi, up to 500uCi, heparanizedWBC, IV, ONE TIME. AND Mu17r-Ngfktupg Sulfur Colloid (Jpbndznyau09i-lraiwwxy sulfur colloid), Administer 0.14mCi/kg with at least 1mCi, up to 8mCi, IV, ONE TIME. In-111 WBC Imaging In-111 Oxine (Indium-111 Oxine), Administer 5uCi/kg with at least 300uCi, up to 500uCi, heparanized WBC, IV, ONE TIME. Liver/Spleen Imaging Rk26t-Scxxum Colloid (Tfhqcxqarf97x-tftcbo colloid), Administer 0.05mCi/kg with at least 0.5mCi, up to 5mCi, IV, ONE TIME. Lung Xenon Perfusion Imaging (normal or quantitative) Tc-99m MAA (Rsflkhlqvx17k-pvgpbhnkwhyvnui albumin), Administer 0.03mCi/kg, with at least 0.4mCi, upto 4mCi IV, ONE TIME. Lung Xenon Ventilation Imaging (normal or quantitative) Xe-133 (Xenon-133), Administer 10 mCi, inhalation, ONE TIME. Lung Perfusion Imaging (normal or quantitative) Tc-99m MAA (Awcyewqeak11v-oglxmwvrshwitnt albumin), Administer 0.03mCi/kg, with at least 0.4mCi, upto 4mCi IV, ONE TIME. Lung Perfusion Imaging - Patient (normal or quantitative) Tc-99m MAA (Xmzmodtavs79u-wptbsqxxqfvkfcl albumin), Administer 0.03mCi/kg, with at least 0.4mCi, upto 2mCi IV, ONE TIME. MIBG Imaging I-123 MIBG (Iodine-123 metaiodobenzylguandidine), Administer 0.14mCi/kg with at least 1mCi, up to 10mCi, IV, ONE TIME AND Administer SSKI (Potassium Iodide) drops 30 minutes prior to radiopharmaceutical injection. * to 1 month: 16mg, Orally, ONE TIME. * 1 month to 3 years of age: 32mg, Orally, ONE TIME. * Greater than 3 years to 17 years of age: 65mg, Orally, ONE TIME. MUGA/RVG Imaging Tc-99m Pertechnetate (Yatjlztcuk68y-ueouvbmnkdhdg), Administer 0.32mCi/kg heparinized RBCs with at least 2mCi, up to 25mCi, IV, ONE TIME. Myocardial Amyloid Scintigraphy (Hot PYP Scan) Pq79j-AJX (Rusrhtqnps80z- pyrophosphate), Administer 0.28mCi/kg, with at least 2.5mCi, up to 15mCi IV, ONE TIME. Myocardial Rest Imaging - SPECT Imaging If77f-Kapcyrk (Dlcbfommza54d-Cntwwjj), Administer 0.15mCi/kg, with at least 2mCi, up to 8mCi IV, ONE TIME. Myocardial Stress Imaging - SPECT Imaging Ol75b-Fodnnib (Hcvwsserof23g-Navbtzk), Administer 0.45mCi/kg, with at least 6mCi, up to 24mCi IV, ONE TIME. Octreoscan In-111 Pentetreotide (Indium-111 Pentetreotide), Administer 0.08mCi/kg with at least 1mCi, up to 6mCi, IV, ONE TIME. Parathyroid Imaging Rd60u-Lwiwanwrq (Oataleeigt60w-rvcrxsras), Administer 0.25mCi/kg, with at least 2mCi, up to 20mCi IV, ONE TIME. Peritoneal Cavity Scintigraphy Wi10z-Usiecz Colloid (Bbyryakjfj97c-wcuxyu colloid), Administer 0.07mCi/kg in 2mL NS with at least 1mCi, up to 2mCi, via peritoneal dialysis, ONE TIME. Peritoneovenous Shunt Scintigraphy Tc-99m MAA (Cgzbenlmor89l-fkiftzzictmkams albumin), Physician to administer 0.07mCi/kg with at least 1mCi, up to 5mCi in 2mL NS, Intraperitoneal, ONE TIME. PET/CT Brain Imaging (FDG) F18-FDG (Frwckbqn03-ptjfsbnxpipzluxaht), Administer 0.10mCi/kg with at least 2mCi, up to 10mCi, IV,ONE TIME. PET/CT Limited, Standard, or Whole-Body Oncology Imaging F18-FDG (Yfgwpfpp88-giinlmbbokrroualio), Administer 0.11mCi/kg with at least 2mCi, up to 10mCi, IV,ONE TIME. PET/CT Dotatate Imaging Ga-68 Dotatate (Gallium-68 Dotatate), Administer 0.054mCi/kg up to 5.4mCi, IV, ONE TIME. (Minimum dose determined by AU). Renal Scintigraphy (AKILA-Inhibitor Renal Scan) Ip95n-QUK7 (Ebageebsnk69b-sisdwebjibnnpjwenvwlovr), Administer 0.1mCi/kg with at least 1mCi, up to 5mCi, IV, ONE TIME. AND Administer Enalaprilat (Vasotec) 0.04mg/kg with a maximum dose of 2.5mg, IV, ONE TIME. Dilute to 5mL total volume with normal saline and infuse via hand push over 5 minutes. Renal Scintigraphy (Cortical Imaging) Xl39q-IENJ (Qsczekvwal49p-yogssztjrgwlvhkpxn acid), Administer 0.05mCi/kg with at least 0.5mCi, up to 5mCi, IV, ONE TIME. Renal Scintigraphy (Diuretic Renal Scan) Mh49z-JYIG (Cxbgvbewgz59a-gslvdamysg-sxwjccav-fnyzfcvyergz), Administer 0.2mCi/kg with at least 2mCi, up to 5mCi, IV, ONE TIME. AND Administer Lasix (furosemide), 1mg/kg, up to 40mg, IV push over 2 minutes, ONE TIME. A reduced dosage of 0.5mg/kg may be used per direction of nuclear medicine physician. OR Ov78g-CAP2 (Jaexjtcfge02e-tiweuopeqvlbmqhbqtoybdq), Administer 0.1mCi/kg with at least 1mCi, up to 5mCi, IV, ONE TIME. AND Administer Lasix (furosemide), 1mg/kg, up to 40mg, IV push over 2 minutes, ONE TIME. A reduced dosage of 0.5mg/kg may be used per direction of the nuclear medicine physician. Renal Scintigraphy (Flow and Function Scan) Dy39f-ZKTI (Wsjlosdbhw25s-xwtuhuqdhn-uliqcawv-yxxgbjfqkqtz), Administer 0.2mCi/kg with at least 2mCi, up to 5mCi OR Kl69j-UUZ2 (Inrjufkllc49w-kkwwnsfssixjdwfmcgphtqh), Administer 0.1mCi/kg with at least 1mCi, up to 5mCi, IV, ONE TIME. Renal Scintigraphy (Renal Transplant Scan) Mf85n-HRFM (Dopboeaxbx06n-xyfdgpjabp-jynfnpxf-ueehnvmhzqrh), Administer 0.2mCi/kg with at least 2mCi, up to 5mCi OR Wz56y-LMD8 (Pnexwcwhcn02q-tuudpjppfzggjuclgkxlrdf), Administer 0.1mCi/kg with at least 1mCi, up to 5mCi, IV, ONE TIME. Salivary Imaging Tc-99m Pertechnetate (Lftsowbquu54d-aqrfeuighlzbb), Administer 0.05mCi/kg with at least 0.25mCi, up to 5mCi, Orally, ONE TIME. Shunt Patency Imaging (CSF Shunt Imaging) Qb47s-JHUO (Rjqgbhseee17u-ugpvwhjnhn-dyrnfklc-uaugamtkwgyx), Neurosurgeon or neurosurgeon's PA to administer 0.01mCi/kg with at least 0.4mCi, up to 0.5mCi, intra-shunt reservoir, ONE TIME. Splenic Imaging Tc-99m Pertechnetate (Voscjiijwh28d-cmzzmjmpyhpjl), Administer 0.03mCi/kg with at least 0.5mCi, up to 6mCi heparinized, heat damaged RBCs, IV, ONE TIME. Pv73j-CFR Imaging Lp46p-Vieoamm (Bgqlknhqnn14p-Fjjafpe), Administer 0.2mCi/kg with at least 2mCi, up to 15mCi, heparinized WBC, IV, ONE TIME. Thyroid Imaging Tc-99m Pertechnetate (Abbvwmuuwb36s-wfwxkdervozur), Administer 0.07mCi/kg with at least 1mCi, up to 10mCi, IV, ONE TIME. Thyroid Scan & Uptake I-123 Na Iodide (Iodide-123 Na Iodide), 110uCi, Orally, ONE TIME. Thyroid Uptake I-123 Na Iodide (Iodide-123 Na Iodide), Administer dosage per treating AU & fillout special prescription form, Orally, ONE TIME. OR I-131 Na Iodide (Iodide-131 Na Iodide), Administer dosage per treating AU & fill out special prescription form, Orally, ONE TIME. Whole Body I-131 Imaging Diagnostic: I-131 Na Iodide (Iodide-131 Na Iodide), Administer 0.07uCi/kg, up to 3mCi capsule or solution (minimum dose per treating AU), Orally, ONE TIME. Therapeutic: Administer per Written Directive RVISOR OF RESEARCH documented in this encounter Plan of Treatment Upcoming Encounters Date Type Department Care Team (Late st Contact Info) Description 09/08/2024 9:00 AM SUPERVISOR OF RESEARCH Appointment [facility] Laboratory Services [facility] [address], [facility] [address] [place] [address] Min, Catherine Esquivel MD [address] [place] [phone] 09/08/2024 10:00 AM SUPERVISOR OF RESEARCH Office Visit [facility] Oncology and Hematology [facility] [address] [facility] [place] [address] [place] [phone] Min, Catherine Esquivel MD [address] [place] [phone] documented as of this encounter Procedures Procedure Name Priority Date/Time Associated Diagnosis Comments PET TUMOR OR INFECTION IMG W CT WHOLE BODY Routine 08/18/2024 10:04 AM SUPERVISOR OF RESEARCH Personal history of DVT (deep vein thrombosis) Melanoma of trunk (CMS/HCC) Chemotherapy induced diarrhea documented in this encounter Results * PET TUMOR IMG W CT WHOLE BODY (08/18/2024 10:04 AM SUPERVISOR OF RESEARCH) Anatomical Region Laterality Modality Positron Emissio n Tomography (PET) 08/18/2024 10:0 5 AM SUPERVISOR OF RESEARCH Impressions 08/18/2024 10:22 AM SUPERVISOR OF RESEARCH IMPRESSION: ??Probably negative PET exam. Intense FDG uptake involving the tip of the tongue likely represents to the patient tensing his tongue against the incisors rather than malignancy. Dictated by Dr. Henri Shaw MD DICTATION LOCATION: 1 Narrative 08/18/2024 10:22 AM SUPERVISOR OF RESEARCH PET/CT IMAGING WITH HARDWARE FUSION Subsequent treatment [...] Dr. 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, except scrotum Chemotherapy induced diarrhea Diarrhea documented in this encounter Administered Medications Inactive Administered Medications - up to 3 most recent administrations Medication Order MAR Action Action Date Dose Rate Site sodium chloride flush injection 10 mL 10 mL, IV, ONE TIME ONLY, 1 dose, On Sun08/18/24 at 0915, Routine Given 08/18/2024 9:15 AM SUPERVISOR OF RESEARCH 10 mL documented in this encounter Care Teams Hoisting Laborer Relationship Specialty Start Date End Date Lyle Lewis DO [address] [place] [address] PCP - General Family Practice 12/08/22 documented as of this encounter
--- OUTSIDE RECORDS SUMMARY | 2024-08-19 14:56 | XMS_ITS ---
Author Organization [facility] [address] [place] [address] Care Team Providers Care Airplane Electrical Repairer Name Role Phone Lyle Lewis DO Unavailable + [phone] Reggie Bowen MD Unavailable [phone] Diane Darnell MD Unavailable + Stephen Cummings MD, Sukumar Wheeler Unavailable +- [phone] Katerina Cueto NP Unavailable [phone] Edson Dominguez DO Primary Care Provider [phone]- [phone] Active Problems Problem Noted Date Diagnosed Date Colon adenoma 06/26/2024 Assessment & Plan (06/26/2024 10:54 AM COSMETIC SURGEON): S/p colonoscopy on 06/20/2024 Colon polyp was tubular adenoma x1 Repeat colonoscopy 5 years with history of lymphocytic colitis but current biopsies did not show any evidence of that from the colon Hepatic steatosis 06/25/2024 Assessment & Plan (06/26/2024 11:02 AM COSMETIC SURGEON): Severe hepatic steatosis noted on CT 04/18/2024 No elevation in LFTs Recommend healthy dietary and lifestyle modifications Obtain liver elastography Follow up in 1 year Change in bowel habits 06/20/2024 Colitis 05/22/2024 Decreased appetite 05/22/2024 Weight loss 05/22/2024 Elevated fecal calprotectin 05/22/2024 Gastroparesis 05/19/2024 Assessment & Plan (06/24/2024 4:24 PM COSMETIC SURGEON): Diagnosed at [facility] although gastric emptying study report is unavailable Recommend small portion, low-fat diet Assessment & Plan (05/19/2024 2:15 PM COSMETIC SURGEON): Diagnosed at [facility] although gastric emptying study report is unavailable Recommend small portion, low-fat diet History of DVT (deep vein thrombosis) 05/19/2024 Assessment & Plan (06/24/2024 4:23 PM COSMETIC SURGEON): Treated with Eliquis - discontinued by hematology/oncology Assessment & Plan (05/19/2024 2:49 PM COSMETIC SURGEON): Treated with Eliquis - discontinued last week by hematology/oncology 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 with meals and 1 as needed for snacks Assessment & Plan (05/19/2024 2:16 PM COSMETIC SURGEON): Stool for pancreatic elastase was low at 44 Continue pancreatic enzyme supplement (Creon) 36,000 units t.i.d. with meals and 1 as needed for snacks Lower extremity edema 05/05/2024 Lymphocytic colitis 05/05/2024 Assessment & Plan (06/26/2024 11:00 AM COSMETIC SURGEON): S/p treatment with Entocort 9mg daily x 8 weeks S/p colonoscopy 06/20/2024 with biopsies from the lining of the colon were all benign for any infection or inflammation Symptoms have resolved, reports 1 or 2 soft stools daily. No melena or hematochezia. May use Imodium as needed for diarrhea Assessment & Plan (05/19/2024 3:16 PM COSMETIC SURGEON): Noted on colonoscopy performed 04/03/2024 Treated with [...] Naproxen, Celebrex, Meloxicam. DVT (deep venous thrombosis) ([facility]) Severe protein-calorie malnutrition ([facility]) Diarrhea 04/18/2024 Assessment & Plan (05/19/2024 3:23 PM COSMETIC SURGEON): Upon admit, Patient with reported up to 23 watery stools daily. Elevated stool inflammatory marker indicating colitis which may potentially be related to the recent use of Keytruda Repeat fecal calprotectin was ordered, patient states he dropped off stool sample last week at [facility], unable to retrieve results. Patient given stool DX kit in office to mail in his sample for repeat fecal calprotectin, as he lives in [place] Today patient reports BMs have significantly improved, [...] 01/25/2023 Assessment & Plan (06/26/2024 11:05 AM COSMETIC SURGEON): History of treatment with Keytruda until January 2024- discontinued due to diagnosis of DVT Assessment & Plan (05/19/2024 2:24 PM COSMETIC SURGEON): History of treatment with Keytruda until January 2024- discontinued due to diagnosis of DVT Spinal stenosis of lumbar re gion without neurogenic claudication 07/13/2021 Current Oncology Plans No current plan information found. Past Plans No past plan information found. Radiation Treatments * No radiation treatments are documented for this patient in [facility]. Treatments may have been administered in another system. Lifetime Dose Tracking * Chemical Lifetime Dose Automatic Entry Manual Entr y Fluoro Time 0.1 minutes 0.1 minutes 0 minutes Air kerma at the reference point (Ka,r) 1.4 mGy 1 .4 mGy 0 mGy
--- OUTSIDE RECORDS SUMMARY | 2024-08-19 14:56 | XMS_ITS | Clinical Summary ---
Author Organization [facility] Address [address] [place] [address] Care Team Providers Care Aboriginal Community Council Member Name Role Phone Joanne Swanson AIR SAW OPERATOR-DUPLICATING MACHINE MECHANIC Primary Care Provid er Source Comments [facility],non-owned Affiliates and Associated Physician Practices is amultiple site organization consisting of ambulatory clinics and hospital sitesin [place], [place], [place]. This disclosure is being madepursuant to the Care Everywhere program and may not contain all information available regarding this patient. Last updated 18.[facility] [employer] Allergies Active Allergy Reactions Criticality Noted Date [...] Mass Index 34.72 12/19/2023 10:30 AM CDT Plan of Treatment Health Maintenance Due Date Last Done Comments COLOGUARD (AGES 45-75) - COL ON CA SCREENING 1955 COLON MONITORING 1956 COLONOSCOPY - COLON CA SCREENING 1956 CT COLONOGRAPHY - COLON CA SCREENING 1956 Colorectal Cancer Screening 1956 FIT - COLON CA SCREENING 1956 FLEX SIG - COLON CA SCREENING 1956 LIPID TESTING 1956 MEDICARE AWV ? 12 MONTHS 1956 HEPATITIS C SCREENING 11/09/1974 DTAP/TDAP/TD VACCINES (1 - Tdap) 11/14/1975 PNEUMOCOCCAL VACCINE 50+ (1 of 1 - PCV) 2006 ZOSTER VACCINE (1 of 2) 2006 SCREENING FOR DIABETES 01/01/2024 COVID-19 VACCINE (1 - 2023-2 5 season) 2024 INFLUENZA VACCINE (#1) 2024 04/30/2014 DEPRESSION SCREENING 07/16/2024 01/01/2024 Respiratory Syncytial Virus (RSV) Vaccine Pt: or over 60 yrs (1 - 1-dose 75+ series) 11/14/2031 HEPATITIS B VACCINE Aged Out No longe r eligible based on patient's age to complete this topic HIB VACCINE Aged Out No longer eligi ble based on patient's age to complete this topic HPV VACCINE Aged Out No longer eligi ble based on patient's age to complete this topic MENINGOCOCCAL (Group B) VACCINE Aged Out No longer eligible based on patient's age to complete this topic MENINGOCOCCAL VACCINE Aged Out No adeola juan eligible based on patient's age to complete this topic Medical Devices Implanted Type Area Fire Prevention Research Engineer Device Identifier Shelf Expiration Date Model / Serial / Lot Cespace Bone Hebert Can [id number] Implanted:Qty: 1 on 04/29/2014 by Irvin Barton MD at [facility] Spine Cervical Aesculap Implant 02/26/2016 [id number] / [id number] / Cspace Bone Hebert Can [id number] Paral Implanted:Qty: 1 on 04/29/2014 by Irvin Barton MD at [facility] Spine Cervical Aesculap Implant 10/01/2016 [id number] / [id number] / 4x14 Const Screw Implanted:Qty: 4 on 04/29/2014 by Irvin Barton MD at [facility] Spine Cervical Aesculap Implant [id number] / / 4x14 S.C. Screw Implanted:Qty: 2 on 04/29/2014 by Irvin Barton MD at [facility] Spine Cervical Aesculap Implant [id number] / / 43mm Hybrid Plate Implanted:Qty: 1 on 04/29/2014 by Irvin Barton MD at [facility] Spine Cervical Aesculap Implant [id number] / / Advance Directives * Full Code (Latest Code Status on File) Date Activated Date Inactivated Comments 04/29/2014 7:52 PM 04/30/2014 12:28 PM Care Teams Aboriginal Community Council Member Relationship Specialty Start Date End Date Joanne Swanson, AIR SAW OPERATOR-DUPLICATING MACHINE MECHANIC [address] [place] [address] PCP - General 11/16/22
[2024-08-19 18:39] LABS: Alanine Aminotransferase 15 U/L (6-50); Albumin Level 3.7 g/dL (3.5-5.1); Alkaline Phosphatase 78 U/L (38-126); Anion Gap 7 mmol/L (4-12); Aspartate Amino Transferase 33 U/L (17-59); Bilirubin,Total 0.6 mg/dL (0.2-1.3); Blood Urea Nitrogen 13 mg/dL (9-20); Calcium 8.8 mg/dL (8.4-10.2); Carbon Dioxide 30 mmol/L (22-30); Chloride 102 mmol/L (98-107); Estimated Glomerular Filt Rate > 60; Glucose 90 mg/dL (65-110); Sodium 139 mmol/L (137-145)
== END 2024-08-19 14:52 | disposition home or self-care (01) ==
LOC: ANHGOSHLAB 14:53
PROVIDERS: PCP Internal Medicine; Visit Provider Internal Medicine
DX: E87.6 Hypokalemia (principal); R53.1 Weakness; I10 Essential (primary) hypertension
CPT/HCPCS: 36415; 80053

== ENCOUNTER 2025-03-24 13:21 | Outpatient (CLI) | payer MEDICARE, OTHER, SELFPAY ==
--- NOTE | ~2025-03-24 | US_ITS ---
EXAMINATION: US soft tissue UE LT DATE: 03/24/2025 13:43 INDICATION: Painful palpable lump at the dorsum of the left wrist/carpus TECHNIQUE: Multiple grayscale and Doppler ultrasound images of the region of concern at the dorsum of the left wrist and carpus were obtained. COMPARISON: None FINDINGS: There is small amount of fluid in the fourth tarsal compartment consistent with tenosynovitis surrounding the extensor digitorum tendons beginning at the level of the distal forearm and extending into the dorsum of the hand. IMPRESSION: 1. Palpable abnormality of concern response to tenosynovitis with fluid extending along the extensor digitorum tendons within the fourth dorsal compartment. Reviewed, dictated and finalized at location A. IMPRESSION: 1. Palpable abnormality of concern response to tenosynovitis with fluid extendi ng along the extensor digitorum tendons within the fourth dorsal compartment.
== END 2025-03-24 13:22 | disposition home or self-care (01) ==
LOC: GOSHIMG 13:23
PROVIDERS: PCP Plastic Surgery; Visit Provider Plastic Surgery
DX: R22.32 Localized swelling, mass and lump, left upper limb (principal); M67.9 Unspecified disorder of synovium and tendon
CPT/HCPCS: 76882